=== PATIENT | female | born 1940 | race Caucasian/White ===

== ENCOUNTER 2022-11-05 01:24 | Day surgery (SDC) | payer MEDICARE, OTHER, SELFPAY ==
--- NOTE | 2022-11-03 14:37 | PC.NURSE ---
Report to the Outpatient Waiting Room, entrance under the green pavilion located off [address], at time 1030 on date _11/05/22 . Planned Procedure Time: __1230 . Time changes happen often and if your time is changed the preop area will call you the afternoon before. - You and your visitor will be asked to self-screen and do not enter if you have any COVID symptoms. - Only one visitor is requested with a max of two and NO children visitors are allowed at this time. - The patient visitor may be requested to leave or wait in car when not with patient due to distancing restrictions. - A mask is optional within the hospital. Patients may have clear liquids (water, carbonated beverages, clear teas, apple juice) until 3 hours prior to surgery with a maximum of 20 ounces. - No food from midnight until time of surgery - Infants may have breast milk until 4 hours before surgery, infant formula 6 hours prior to surgery. - Children will be allowed to drink immediately following surgery. If applicable, please bring a bottle or sippy cup to assist with drinking. Juice, water, soda, and popsicles are readily available. For infants on formula, please bring formula the day of surgery. Pacifiers are allowed. Take the following medications with a SIP of water the morning of surgery: __NONE Medications to discontinue per physician ALL VITAMINS AND SUPPLEMENTS 3 DAYS PRE OP Date to take last dose____PT STATES LAST DOSE 11/03/22 Please no make-up, nail welsh, hairspray, perfume, deodorant, or body powder the day of surgery. No jewelry (including any body piercings) or valuables the day of surgery, leave them at home. Please take a shower or bath the night before, or the morning of, surgery with an antibacterial soap. Wear comfortable, loose fitting clothing. Children are encouraged to wear pajamas. - Jewelry must be removed prior to entering the operating room. Rings and piercings that are not removed may be cut off. - The hospital will not accept responsibility for valuables. - Please leave all valuables, including medications, at home the day of surgery. If you are going home after surgery, a licensed driver helper must drive you home. - NO public transportation without another adult if you receive anesthesia. - We recommend that an adult stay with you for 24 hours following discharge. - We also recommend that you do not drive, make important decision, drink alcoholic beverages, or take any drugs that were not prescribed by your health care provider for at least 24 hours after your discharge time. Follow any additional instructions given to you from your surgeon. If you or anyone in your household have experienced Covid symptoms in the past week, please notify your surgeon or the nurse liaison at the phone number below for possible testing. Telephone instructions given to ____PATIENT and asked if any additional questions and then verbalized understanding. Patient advised to call surgeon office or pre surgery nurse liaison [phone] if any additional questions.
[2022-11-03 14:45] VITALS: BMI 18.1
--- NOTE | 2022-11-04 13:40 | P.PNAN_ITS ---
Anes - Initial Pre Proc Eval Procedure: Operation Date: 11/05/22 10:00 Proposed Procedures p Insertion Missy Cath - Jesus Navas MD Date/Time: 11/04/22 13:40 Surgeon: Jesus Navas MD Pre Op Diagnosis: malignant neoplasm of rt breast, Infemale receptor Patient Data Age: 81 Gender: F Height: 1.63 m Weight: 48.1 kg Allergies Allergy/AdvReac Type Severity Reaction Status Date / Time No Known Allergies Allergy Verified 11/05/22 08:29 Home Medications Medication Instructions Recorded Confirmed Type aflibercept 2 mg/0.05 mL 2 mg intravitreal MONTHLY 11/03/22 11/05/22 History intravitreal syringe (Eylea) cholecalciferol (vitamin D3) 50 150 mcg PO DAILY 11/03/22 11/05/22 History mcg (2,000 unit) capsule cyanocobalamin (vitamin B-12) 1,000 mcg PO DAILY 11/03/22 11/05/22 History 1,000 mcg tablet omega-3 fatty acids 1,000 mg PO DAILY 11/03/22 11/05/22 History vitamins A,C,L-jzxs-yzbwsa 14,320 1 cap PO DAILY 11/03/22 11/05/22 History unit-226 mg-200 unit capsule (PreserVision AREDS) Patient hx anesthesia problems: none Family hx anesthesia problems: none Results Review: All pre-operative results and documents have been reviewed as part of the pre- operative evaluation. [facility] Past Medical History Medical History (Updated 11/04/22 @ 20:08 by Jesus Navas MD) Breast cancer Hiatal hernia Invasive ductal carcinoma of right breast, stage 2 Osteoarthritis Surgical History Surgical History (Updated 11/04/22 @ 20:11 by Jesus Navas MD) Total knee replacement status Social History Social History Smoking status: Never smoker Living arrangements: alone Spiritual care concerns: No Anes - Eval Final PreProcedure Day of Procedure 11/04/22 13:40 Patient weight: normal Heart: regular rate and rhythm Lungs: clear to auscultation and normal air movement Airway: Mallampati scale class II Neurological: alert and oriented Last oral intake: >/= 8 hours ASA classification: III Emergent: no Anesthetic plan: proceed Anesthesia type and monitoring: general GIVS Results Review: All pre-operative results and documents have been reviewed as part of the pre- operative evaluation. Informed Consent: The patient's anesthetic plan and its attendant risks and benefits were discussed with the patient/family/POA. Questions were solicited and answers provided to the satisfaction of the patient/family/POA.
--- NOTE | 2022-11-04 20:02 | PM.HPGS ---
History of Present Illness History of Present Illness Consent: Risks, benefits, and alternatives of placement of a Missy-cath have been discussed and questions answered. Patient agrees to proceed with procedure. Chief complaint: malignant neoplasm of rt breast, Infemale receptor Narrative: Nayla Mejias is a 81 year old female whoy has trip;e negative Rt. breast cancer(T1cN0) stage IIB invasive ductal carcinoma. She iw seeing Dr. Adam Ballard they have agreed to proceed with adjuvant chemotheraphy. This is thought best delivered via a central venous access divice. Review of Systems Constitutional: Constitutional: Reports no additional constitutional complaints, Reports fatigue and Denies malaise Eyes: Eyes: Denies change in vision Comments: Hx of Macular degeneration. ENT: Reports Normal hearing present, Denies change in voice, Denies dizziness, Denies hoarseness and Denies sore throat Cardiovascular: Cardiovascular: Denies chest pain, Denies leg edema and Denies dyspnea Respiratory: Respiratory: Denies cough, Denies dyspnea and Denies wheezing Gastrointestinal: Gastrointestinal: Denies hematochezia, Denies change in bowel habits and Denies heartburn Comments: History after anesthesia Genitourinary: Genitourinary: Denies urinary frequency and Denies urinary incontinence Comments: Hx of hiatal hernia. Neurologic: Reports Normal hearing present, Denies confusion, Denies dizziness, Denies loss of vision, Denies memory loss and Denies seizure-like activity Psychiatric: Psychiatric: Denies confusion, Denies depression and Denies memory loss Endocrine: Endocrine: Denies cold intolerance and Reports fatigue Hematologic/Lymphatic: Hematologic/Lymphatic: Denies easy bleeding and Denies easy bruising Allergic/Immunologic: Allergic/Immunologic: Denies wheezing PMFSH Past Medical History Medical History (Updated 11/04/22 @ 20:08 by Jesus Navas MD) Breast cancer Hiatal hernia Invasive ductal carcinoma of right breast, stage 2 Osteoarthritis Surgical History Surgical History (Updated 11/04/22 @ 20:11 by Jesus Navas MD) Total knee replacement status Social History Social History Smoking status: Never smoker Living arrangements: alone Spiritual care concerns: No Meds Home Medications and Allergies Home Medications Medication Instructions Recorded Confirmed Type aflibercept 2 mg/0.05 mL 2 mg intravitreal MONTHLY 11/03/22 11/05/22 History intravitreal syringe (Eylea) cholecalciferol (vitamin D3) 50 150 mcg PO DAILY 11/03/22 11/05/22 History mcg (2,000 unit) capsule cyanocobalamin (vitamin B-12) 1,000 mcg PO DAILY 11/03/22 11/05/22 History 1,000 mcg tablet omega-3 fatty acids 1,000 mg PO DAILY 11/03/22 11/05/22 History vitamins A,C,G-kltw-oiepgo 14,320 1 cap PO DAILY 11/03/22 11/05/22 History unit-226 mg-200 unit capsule (PreserVision AREDS) Allergies Allergy/AdvReac Type Severity Reaction Status Date / Time No Known Allergies Allergy Verified 11/05/22 08:29 Exam Const: General: cooperative, healthy appearing, no acute distress, well developed, alert and well nourished; No confusion Nutritional Appearance: well nourished Orientation/consciousness: patient oriented x3 and No confusion Limitations: no limitations HENMT: Head: normal to inspection, normocephalic and atraumatic Ears: hearing grossly normal bilaterally Face/Nose/Sinus: Normal external nose present and No edema Face and sinus: no edema Mouth: Yes Normal oral and palatal mucosa present and Yes lip normal Throat: posterior oropharynx normal Other: No scars on neck from previous surgery Eyes: General: appearance normal, both eyes and all related structures Sclera: sclerae normal Pupils: Equal, round and reactive pupils present EOM: EOMs intact bilaterally Neck: Neck: normal visual inspection, no lymphadenopathy, trachea midlin
--- NOTE | ~2022-11-05 | XR_ITS ---
EXAMINATION: XR fl guide central line place DATE: 11/05/2022 11:14 INDICATION: Port placement. TECHNIQUE: A single intraoperative fluoroscopic view of the chest was obtained. I was not present. Fl uoroscopy exposure time was 45 seconds. COMPARISON: None. FINDINGS: There is a right internal jugular port with tip at superior cavoatrial junction. IMPRESSION: 1. Port tip at superior cavoatrial junction. Reviewed, dictated and finalized at location A. ESSOR OF ANTHROPOLOGY
--- NOTE | ~2022-11-05 | XR_ITS ---
EXAMINATION: XR chest port-a-cath/central DATE: 11/05/2022 11:29 INDICATION: Port placement. TECHNIQUE: A single frontal view of the chest was obtained. COMPARISON: None. FINDINGS: There is no pneumonia, pleural effusion, pneumothorax. The heart size is normal. There is a right internal jugular port with tip in superior vena cava. Surgical clips overlie right breast. IMPRESSION: 1. Port tip in superior vena cava. Reviewed, dictated and finalized at location A. K OFF WORKER
[2022-11-05] MEDS: LACTATED RINGERS 1,000 ML 30 ML IV CONT (09:10)
[2022-11-05 09:15] VITALS: BP 141/68; PULSE 73; RESP 16; TEMP 36.7; O2SAT 99
[2022-11-05 09:16] LABS: Basophils Percent Auto 0.9 % (0.2-1.2); Eosinophils Absolute Auto 0.2 K/mm3 (0-0.3); Hematocrit 39.4 % (37.0-47.0); Hemoglobin 12.9 g/dL (12.0-15.0); Immature Granulocyte Absolute 0.01 K/mm3 (0.00-0.031); Immature Granulocyte Percent A 0.2 % (0-0.5); Lymphocytes Absolute Auto 1.29 K/mm3 (0.9-3.2); Lymphocytes Percent Auto 30.3 % (18.3-44.2); Mean Corpuscular HGB Conc 32.7 g/dl (32-36); Mean Corpuscular Hemoglobin 29.3 pg (26-34); Mean Corpuscular Volume 89.5 fl (80-100); Monocytes Absolute Auto 0.5 K/mm3 (0.1-0.6); Neutrophils Absolute Auto 2.2 K/mm3 (1.3-6.7); Neutrophils Percent Auto 52.6 % (45.5-73.1); Platelet Count Result 203 k/mm3 (150-375); White Blood Count 4.3 K/mm3 (4.5-10.0)
[2022-11-05] MEDS: KETOROLAC 15 MG/ML VIAL (*BKC) IV PUSH (09:27)
[2022-11-05 09:34] LABS: INR 1.1; Prothrombin Time 13.4 Seconds (11.1-14.7)
[2022-11-05 09:35] LABS: Partial Thromboplastin Time 30.2 SECONDS (22.3-36.8)
--- NOTE | 2022-11-05 09:50 | WPDHPUPDATE1 ---
History and Physical Update Update Date/Time: 11/05/22 09:50 History and Physical has been reviewed, including an updated exam of the patient. There are NO changes in the patient's condition. Risks, benefits, and alternatives have been discussed and questions answered. Patient agrees to proceed with procedure.
[2022-11-05] MEDS: ceFAZolin 2 GM/D5W 50 ML 2 GM/50 ML BAG IVPB (10:08)
[2022-11-05] MEDS: HEPARIN SODIUM 5,000 UNITS/ML VIAL 5000 UNITS IRRIGATION (10:41)
[2022-11-05] MEDS: BUPIVACAINE/EPINEPHRINE 0.5% 10 ML VIAL 20 ML INFILTRATE (10:42)
[2022-11-05 11:12] VITALS: BP 121/66; PULSE 75; RESP 15; O2SAT 96
--- NOTE | 2022-11-05 11:38 | W.PM.PROC2 ---
Procedure Note - Detailed Date of Procedure 11/05/22 Pre-op Diagnosis malignant neoplasm of rt breast, stage II B, triple negative Post-op Diagnosis Same Procedure Performed 1. Placement of Missy-cath. 2. Use of US for vascular access site selection and visualization of needle access to vein. Surgeon Jesus Navas MD Kitchen Mechanic Blanca [email or web address].OR director of first impressions Anesthesia Local (with 0.5% Marcaine with epinepherine) and Other (GIVS) Indications Patient is planning to go through several rounds of adjuvant chemotherapy followed by radiation therapy for her triple negative right breast cancer. Findings Normal appearing vascular anatomy in the right neck. Question of enlarged lymph nodes along the right jugular vein. Description of Procedure Patient was seen and marked in the pre-op area prior to coming to the OR. Patient was brought to the operating room. Patient was placed supine on the operating table and general IV sedation was induced. The nurse financial accounting analyst provided And continuous monitoring, oxygen, and IV sedation or general anesthesia with IV sedation as was appropriate for the patient's condition. See anesthesia notes). Patient's head was carefully turned to the left side while in the supine position and the patient's entire neck and anterior chest on both sides was prepped and draped in the usual sterile fashion. Following this the appropriate time-out was completed confirming procedure and patient. We confirmed that all the needed equipment was present in the room including the vascular ultrasound probe in machine. Following this the ultrasound probe was draped into the field and using the probe we carefully identified the carotid artery and jugular vein on the right neck. I then saved an image of the vascular anatomy of the neck, which documented the selected vessels patency and transferred it from the ultrasound machine to the [employer] chart. I marked the skin directly over the right internal jugular vein. I then used an 11 blade knife to make a small thanh in the skin. Following this, using the continuous ultrasound guidance, a Cook needle was placed through the skin incision and on into this vein. I then was able to draw back good dark blood. Once this was completed a guidewire using a J-tip was advanced through the needle and then the needle and the guidewire cover were withdrawn. C-arm fluoroscopy was used to confirm that the guidewire was nicely in the central venous system. Once this was confirmed with the C - arm, I preceded on by making the pocket for the port on the patient's anterior right chest approximately 3 centimeters below the clavicle overlying the chest wall. Local anesthetic was infiltrated into the skin where there was a transverse incision marked out. Incision was made and we made a pocket inferior to the incision with just a little dissection superior. The Bard low-profile port was tried in the pocket and seemed to fit well. Following this the catheter which had been placed on a tunneling device was tunneled from the port site on the anterior right chest up to the right neck where the small incision had been made slightly larger with an #11 blade knife. Then the catheter was pulled through so that we would have 15 centimeters to put into the central venous system once the dilation took place. Following this we placed the dilator and sheath over the guidewire in the jugular vein and carefully dilated the tract into the central venous system. The guidewire and dilator were then removed, carefully covering the end of the sheath to prevent air embolus. The end of the catheter which had been removed from the tunneling device and the tip checked was then inserted into the sheath and into the neck. I then carefully pulled the 2 arms of the tear-away sheath away as the ssn/ssbn assistant navigator held the catheter in position with a DeBakey forceps. Following this we checked the position of the catheter with C-arm fluoroscopy confirming that t
[2022-11-05 11:40] VITALS: BP 119/80; PULSE 76; RESP 20
[2022-11-05 12:10] VITALS: BP 145/75; PULSE 70; RESP 16
[2022-11-05 12:30] VITALS: BP 145/75; PULSE 70; RESP 20
== END 2022-11-05 12:35 | disposition home or self-care (01) ==
PROVIDERS: PCP Internal Medicine; Visit Provider Surgery
PROC: (CPT 36561; principal; 2022-11-05 10:00)
DX: C50.911 Malignant neoplasm of unspecified site of right female breast (principal); Z17.1 Estrogen receptor negative status [ER-]; M19.90 Unspecified osteoarthritis, unspecified site; K44.9 Diaphragmatic hernia without obstruction or gangrene
CPT/HCPCS: 36561; 36415; 76937; 77001; 85025; 85610; 85730; C1788; J0690; J1644; J1885; J2704; J3010; J7030; J7120

== ENCOUNTER 2022-12-20 12:36 | Inpatient (IN) | payer MEDICARE, OTHER, SELFPAY ==
--- NOTE | ~2022-12-20 | MR_ITS ---
EXAMINATION: MR MRCP wo/w con/w 3D wo ind DATE: 12/21/2022 09:36 INDICATION: Biliary obstruction. Abdominal pain. TECHNIQUE: Magnetic resonance imaging (MRI) of the abdomen was performed without and with 9 mL MultiH ance intravenous contrast. Sequences included coronal T2-weighted FS FSE, coronal T2-weighted FSE, ax ial T1-weighted LAVA, coronal FS FIESTA, axial dual-echo T1-weighted SPGR, coronal lava-FLEX, sagitta l T2-weighted FSE, axial T2-weighted FSE, and axial DWI. Thick-slab T2-weighted FSE images were obtai aaron for magnetic resonance cholangiopancreatography (MRCP). Maximum intensity projection 3-D reconstr uctions of the volumetric data were created by the technologist. Postcontrast sequences included efren nal LAVA-flex and time course of axial T1-weighted LAVA. COMPARISON: CT abdomen and pelvis 12/20/22 FINDINGS: ABDOMEN MRI: There is a 5 mm cyst in the liver. There is mild intrahepatic biliary duct dilatation. T he common duct measures 10 mm in diameter. The gallbladder and spleen are normal. Pancreas divisum is noted. There are 5 mm and 4 mm cystic lesions in the pancreas. The adrenal glands are normal. There are cysts in the kidneys measuring up to 17 mm on the left. There are no pathologically enlarged lymp h nodes. There is no free intraperitoneal fluid. There are no dilated loops of bowel. ABDOMEN MRCP: There is no choledocholithiasis. IMPRESSION: 1. Mild intrahepatic and extrahepatic biliary duct dilatation. No choledocholithiasis. 2. Two pancreatic cystic lesions measuring up to 5 mm. The differential diagnosis includes pseudocyst , intraductal papillary mucinous neoplasm (IPMN), mucinous cystic neoplasm (MCN), serous cystadenoma, and neuroendocrine tumor. Consider abdomen MRI without and with contrast in 2 years, but only if the patient would be a possible future surgical candidate. Reviewed, dictated and finalized at location A. HIATRIC CLINICAL NURSE SPECIALIST IMPRESSION: 1. Mild intrahepatic and extrahepatic biliary duct dilatation. No choledocholit hiasis. 2. Two pancreatic cystic lesions measuring up to 5 mm. The differential diagnos is includes pseudocyst, intraductal papillary mucinous neoplasm (IPMN), mucinou s cystic neoplasm (MCN), serous cystadenoma, and neuroendocrine tumor. Consider abdomen MRI without and with contrast in 2 years, but only if the patient woul d be a possible future surgical candidate.
--- NOTE | ~2022-12-20 | XR_ITS ---
EXAMINATION: XR chest 1V portable DATE: 12/20/2022 16:56 INDICATION: Fever. TECHNIQUE: A single frontal view of the chest was obtained. COMPARISON: Chest single view 11/05/2022, CT abdomen and pelvis 12/20/2022 FINDINGS: There is no pneumonia, pleural effusion, or pneumothorax. The heart size is normal. There i s a right internal jugular port with tip at superior cavoatrial junction. Surgical clips overlie righ t chest. IMPRESSION: 1. No acute cardiopulmonary disease. Reviewed, dictated and finalized at location A. A SENIOR RECRUITER
--- NOTE | ~2022-12-20 | CT_ITS ---
EXAMINATION: CT abdomen pelvis w con DATE: 12/20/2022 14:08 INDICATION: Abdominal pain. Constipation. TECHNIQUE: Computed tomography (CT) of the abdomen and pelvis was performed with 100 cc Omnipaque 350 intravenous contrast. The dose-length product was 177.10 mGy-cm. Automated exposure control and iter ative reconstruction technique were employed. COMPARISON: No prior studies for comparison. FINDINGS: There is right middle lobe and lingular atelectasis/scarring. Otherwise, lung bases unremar kable. No significant pleural or pericardial effusion. Small hiatal hernia. There is fluid throughout the small bowel and colon. No obstruction. Gallbladder is present. There is intrahepatic and extrahe patic biliary dilatation. There is evidence for chronic pancreatitis. There are calcified granulomas of the spleen. There are bilateral renal cysts. No hydronephrosis. No significant vascular abnormalit y. No lymphadenopathy. No free air or free fluid. There is dextroscoliosis of the lumbar spine. Moder ate lumbar spondylosis. There is generalized osteopenia. IMPRESSION: 1. Dilated intrahepatic and extrahepatic bile ducts. No definite obstructing stone or mass. Consider correlation with MRCP. CBD measures 10 mm. 2: Moderately distended small bowel and colon containing fluid throughout which may represent ileus o r enterocolitis. Reviewed, dictated and finalized at location A. CAL RECEPTIONIST MEDICAL ASSISTANT IMPRESSION: 1. Dilated intrahepatic and extrahepatic bile ducts. No definite obstructing st one or mass. Consider correlation with MRCP. CBD measures 10 mm. 2: Moderately distended small bowel and colon containing fluid throughout which may represent ileus or enterocolitis.
[2022-12-20 12:37] VITALS: BP 149/59; PULSE 120; RESP 16; TEMP 37.8; O2SAT 96
[2022-12-20] MEDS: SODIUM CHLORIDE 0.9% IV 1,000 ML 999 ML IV CONT ×2 (13:24→15:24)
--- NOTE | 2022-12-20 13:33 | ED.GENADULT ---
HPI - General Adult General Chief complaint: Abdominal Pain Stated complaint: Constipation, Abd Pain Time Seen by Provider: 12/20/22 12:44 History of Present Illness HPI narrative: 81-year-old female presented to the emergency department for evaluation of 5 days of constipation. Patient denies any prior history of significant constipation. Patient is currently being treated for breast cancer by Dr. Medina. Patient had chemotherapy on 12/12. Patient reports over the last 5 days she has had decreased bowel movements. Patient has tried multiple treatments at home including flaxseed oil, fleets enema and Senokot. Patient states that while she was in the waiting room she did pass a small amount of fluid that was brown-colored but denies any significant amount of stool. Patient does report some associated upper abdominal pain. Patient reports she is still eating and drinking well up until today. Patient does report she is passing flatus. Patient does have a prior surgical history of a hysterectomy. Related Data Home Medications Medication Instructions Recorded Confirmed aflibercept 2 mg/0.05 mL 2 mg intravitreal [id number] macular 11/03/22 12/20/22 intravitreal syringe (Eylea) degeneration cholecalciferol (vitamin D3) 50 150 mcg PO DAILY 11/03/22 12/20/22 mcg (2,000 unit) capsule cyanocobalamin (vitamin B-12) 1,000 mcg PO DAILY 11/03/22 12/20/22 1,000 mcg tablet omega-3 fatty acids 1,000 mg PO DAILY 11/03/22 12/20/22 vitamins A,C,N-iopw-jlsfms 14,320 1 cap PO DAILY 11/03/22 12/20/22 unit-226 mg-200 unit capsule (PreserVision AREDS) Allergies Allergy/AdvReac Type Severity Reaction Status Date / Time No Known Allergies Allergy Verified 12/20/22 18:22 Review of Systems Review of Systems: CONSTITUTIONAL: Denies fever, chills, or sweats. EYES: Denies visual changes, redness, or discharge. ENT: Denies rhinorrhea, congestion, sore throat, or otalgia. CARDIOVASCULAR: Denies chest pain, palpitations, or edema. RESPIRATORY: Denies cough or dyspnea. GASTROINTESTINAL: See HPI GENITOURINARY: Denies dysuria or hematuria. SKIN: Denies rash or itching. MUSCULOSKELETAL: Denies back pain, joint pain, or myalgia. NEUROLOGIC: Denies headache, numbness, or weakness. [facility] Past Medical History Medical History (Updated 12/20/22 @ 16:07 by Devin Webb MD) Breast cancer Hiatal hernia Invasive ductal carcinoma of right breast, stage 2 Osteoarthritis Surgical History Surgical History (Updated 11/04/22 @ 20:11 by Jesus Barry MD) Total knee replacement status Social History Social History Smoking status: Never smoker Alcohol intake: never Substance use: never Lack of Transportation: No Lack of Food: Never True Current Housing: I Have Housing Concerned About Future Housing: No Difficulty Paying Gas/Electric Bills: No Difficulty Paying for Meds: No Currently Unemployed: No Education: Decline to Answer Difficulty w/ Childcare or Family Care: No Living arrangements: alone Spiritual care concerns: No Exam Narrative: APPEARANCE: Well appearing, no pain, no distress, well-nourished. HEAD: normocephalic, atraumatic. EYES: PERRLA/EOMI, conjunctivae clear. NOSE: Normal no drainage NECK: Supple. No adenopathy, no masses. RESPIRATORY: Airway patent, respirations nonlabored. Clear to auscultation bilaterally, no rales, rhonchi, wheezing. CARDIOVASCULAR: Regular rate and rhythm without murmurs rubs or gallops. ABDOMINAL: Soft, nondistended, decreased bowel sounds, upper abdominal tenderness to palpation MUSCULOSKELETAL: Moves all extremities. Strength/ROM intact, No edema, No calf tenderness. NEURO: Alert. Cranial nerves II through XII intact. Grossly intact SKIN: Warm, dry. Normal Color Course Course Emergency Course: Patient was treated with IV saline, IV Zofran and IV fentanyl for pain control. CT scan was ordered
[2022-12-20 13:35] LABS: Basophils Percent Auto 1.5 % (0.2-1.2); Hematocrit 32.8 % (37.0-47.0); Hemoglobin 11.3 g/dL (12.0-15.0); Lymphocytes Absolute Auto 0.66 K/mm3 (0.9-3.2); Lymphocytes Percent Auto 50.8 % (18.3-44.2); Mean Corpuscular HGB Conc 34.5 g/dl (32-36); Mean Corpuscular Hemoglobin 28.5 pg (26-34); Mean Corpuscular Volume 82.8 fl (80-100); Mean Platelet Volume 10.7 fl (7.4-10.4); Monocytes Absolute Auto 0.6 K/mm3 (0.1-0.6); Monocytes Percent Auto 45.4 % (2.6-8.5); Neutrophils Percent Auto 2.3 % (45.5-73.1); Platelet Count Result 245 k/mm3 (150-375); Red Blood Count 3.96 M/mm3 (4.2-5.4); Red Cell Distribution Width 11.7 % (11.5-14.5)
[2022-12-20 13:48] LABS: Lactic Acid Reflex 0.9 mmol/L (0.7-2.0)
[2022-12-20 13:49] LABS: Alanine Aminotransferase 123 U/L (6-35); Albumin Level 3.8 g/dL (3.5-5.1); Alkaline Phosphatase 105 U/L (38-126); Anion Gap 7 mmol/L (8-16); Aspartate Amino Transferase 155 U/L (14-36); Bilirubin,Total 1.5 mg/dL (0.2-1.3); Blood Urea Nitrogen 16 mg/dL (7-17); Calcium 8.3 mg/dL (8.4-10.2); Carbon Dioxide 27 mmol/L (22-30); Chloride 92 mmol/L (98-107); Estimated CRCL calculation 57 ml/min; Estimated Glomerular Filt Rate > 60; Glucose 124 mg/dL (65-110); Lipase 62 U/L (23-300); Potassium 3.3 mmol/L (3.4-5.0); Sodium 126 mmol/L (137-145)
[2022-12-20 13:53] LABS: INR 1.2; Partial Thromboplastin Time 29.9 SECONDS (22.3-36.8); Prothrombin Time 14.7 Seconds (11.1-14.7)
[2022-12-20 13:59] LABS: White Blood Count 1.3 K/mm3 (4.5-10.0)
[2022-12-20 14:18] VITALS: TEMP 38.6
[2022-12-20 14:18] LABS: Platelet Estimate Increased (Adequate)
[2022-12-20 14:19] LABS: Ovalocytes 1+ (NORMAL); Poikilocytosis 1+ (NORMAL); Schistocytes None Seen (NORMAL)
[2022-12-20 14:19] LABS: Appearance Urine Clear (Clear); Bilirubin Urine Negative (Negative); Blood Urine Trace-intact (Negative); Color Urine Yellow (Yellow); Glucose Urine UA Negative (Negative); Ketones Urine Negative (Negative); Leukocyte Esterase Ur Negative LEU/UL (Negative); Nitrate Urine Negative (Negative); Protein Urine Trace mg/dL (Negative); Urobilinogen Urine 0.2 mg/dL (<2.0); pH Urine 5.5 (5.0-9.0)
[2022-12-20 14:37] LABS: Mucus Urine Few /lpf; WBC Urine 0-3 /hpf
[2022-12-20 14:41] LABS: Add Urine Microscopic? YES
[2022-12-20 15:35] LABS: Influenza A QL RT-PCR Negative (Negative); Influenza B QL RT-PCR Negative (Negative); RSV RNA, RT-PCR Negative (Negative); SARS-CoV-2 RNA PCR Negative
[2022-12-20] MEDS: fentaNYL CITRATE INJ (*CRX) 100 MCG/2 ML VIAL 50 MCG IV PUSH ×2 (15:49→22:29)
--- NOTE | 2022-12-20 16:01 | PM.IMHP ---
H&P: HPI History of Present Illness Date/Time: 12/20/22 16:01 Chief Complaint: fever,, abdominal discomfort Narrative: this 81-year-old female who presents to the ER for evaluation of 5 days of constipation/abdominal discomfort. She tried multiple treatments at home including flaxseed oral fleets enema and Senokot. She has not had any bowel movement since past 5 days but had a small watery one 2 days back. she noted an episode of fever today and came to the hospital for evaluation. She was noted to be severely neutropenic. She was also hyponatremic and hypokalemic LFTs were elevated UA was negative. She is getting treated for breast cancer by oncologist. Last chemotherapy was on 12/12/2022. COVID flu and RSV negative. CT abdomen is done which showed dilated intrahepatic and extrahepatic bile ducts with no definitive obstructing mass or stone. CBD measured 10 mm in size. Moderately distended small bowel and colon continue fluid throughout which represent ileus or enterocolitis. She is admitted for further evaluation and management. Review of Systems Review of Systems: - CONSTITUTIONAL: Denies weight loss, rpeorts fever and chills. - HEENT: Denies changes in vision and hearing - RESPIRATORY: Denies SOB and cough. - CV: Denies palpitations and CP. - GI: reprots abdominal pain, denies nausea, vomiting and reports diarrhea. - : Denies dysuria and urinary frequency. - MSK: Denies myalgia and joint pain. - SKIN: Denies rash and pruritus. - NEUROLOGICAL: Denies headache and syncope. - PSYCHIATRIC: Denies recent changes in mood. Denies anxiety and depression. [facility] Past Medical History Medical History (Updated 12/20/22 @ 16:07 by Devin Webb MD) Breast cancer Hiatal hernia Invasive ductal carcinoma of right breast, stage 2 Osteoarthritis Surgical History Surgical History (Updated 11/04/22 @ 20:11 by Jesus Barry MD) Total knee replacement status Social History Social History Smoking status: Never smoker Alcohol intake: never Substance use: never Lack of Transportation: No Lack of Food: Never True Current Housing: I Have Housing Concerned About Future Housing: No Difficulty Paying Gas/Electric Bills: No Difficulty Paying for Meds: No Currently Unemployed: No Education: Decline to Answer Difficulty w/ Childcare or Family Care: No Living arrangements: alone Spiritual care concerns: No Meds Home Medications and Allergies Home Medications Medication Instructions Recorded Confirmed Type aflibercept 2 mg/0.05 mL 2 mg intravitreal [id number] macular 11/03/22 12/20/22 History intravitreal syringe (Eylea) degeneration cholecalciferol (vitamin D3) 50 150 mcg PO DAILY 11/03/22 12/20/22 History mcg (2,000 unit) capsule cyanocobalamin (vitamin B-12) 1,000 mcg PO DAILY 11/03/22 12/20/22 History 1,000 mcg tablet omega-3 fatty acids 1,000 mg PO DAILY 11/03/22 12/20/22 History vitamins A,C,G-dqlq-jgkdza 14,320 1 cap PO DAILY 11/03/22 12/20/22 History unit-226 mg-200 unit capsule (PreserVision AREDS) Allergies Allergy/AdvReac Type Severity Reaction Status Date / Time No Known Allergies Allergy Verified 12/12/22 10:28 Vital Signs Vital Signs - 24 hr 12/20/22 12:37 12/20/22 14:18 Temperature 100.1 F H 101.4 F H Pulse Rate 120 H Respiratory Rate 16 Blood Pressure 149/59 H Pulse Oximetry 96 Oxygen Delivery Room Air Exam Narrative: APPEARANCE: Well appearing, no pain, no distress, well-nourished. HEAD: normocephalic, atraumatic. EYES: PERRLA/EOMI, conjunctivae clear. NOSE: Normal no drainage NECK: Supple. No adenopathy, no masses. RESPIRATORY: Airway patent, respirations nonlabored. Clear to auscultation bilaterally, no rales, rhonchi, wheezing. CARDIOVASCULAR: Regular rate and rhythm without murmurs rubs or gallops. ABDOMINAL: Soft, nondistended, decreased
--- NOTE | 2022-12-20 16:25 | ADMGEN ---
This patient, Nayla Mejias, was admitted to Medical Room 341-01. Patient/family oriented to hospital policies and general routines including ID bracelet, bed and alarms, visiting hours, pain management, procedures, bathroom and other care routines, personal items, smoking policy, room service/diet, and visiting hours. Information on how to activate the Rapid Response Team has been discussed. Patient/Family are encouraged to report perceived risks to care and to ask questions if they do not understand what they are told or what they should do.
[2022-12-20 16:30] VITALS: BP 127/61; PULSE 86; RESP 16; TEMP 37.1; O2SAT 95
[2022-12-20 16:48] VITALS: BMI 18.9
[2022-12-20] MEDS: SODIUM CHLORIDE 0.9% IV 1,000 ML 100 ML IV CONT (17:27)
[2022-12-20] MEDS: metroNIDAZOLE 500 MG/ISO 100ML 500 MG/100 ML BAG 100 MG IVPB ×2 (17:28→22:28)
[2022-12-20] MEDS: POTASSIUM CHLORIDE 20 MEQ TABLET 40 MEQ PO (17:28)
[2022-12-20 17:30] VITALS: PULSE 86; RESP 16; O2SAT 95
[2022-12-20 20:20] VITALS: BP 123/54; PULSE 84; RESP 18; TEMP 37.2; O2SAT 97
[2022-12-21] VITALS (8 sets, daily range): BP systolic 121–132; BP diastolic 53–89; PULSE 75–89; RESP 16–18; TEMP 36.7–38.4; O2SAT 94–100
[2022-12-21] MEDS: ACETAMINOPHEN 325 MG TABLET 650 MG PO (01:56)
[2022-12-21] MEDS: SODIUM CHLORIDE 0.9% IV 1,000 ML 100 ML IV CONT (04:22)
[2022-12-21] MEDS: metroNIDAZOLE 500 MG/ISO 100ML 500 MG/100 ML BAG 100 MG IVPB ×4 (04:22→21:24)
[2022-12-21 05:20] LABS: Basophils Percent Auto 1.4 % (0.2-1.2); Eosinophils Percent Auto 0.7 % (0-4.4); Hematocrit 30.1 % (37.0-47.0); Hemoglobin 9.9 g/dL (12.0-15.0); Immature Granulocyte Absolute 0.02 K/mm3 (0.00-0.031); Immature Granulocyte Percent A 1.4 % (0-0.5); Lymphocytes Absolute Auto 0.57 K/mm3 (0.9-3.2); Lymphocytes Percent Auto 40.7 % (18.3-44.2); Mean Corpuscular HGB Conc 32.9 g/dl (32-36); Mean Corpuscular Hemoglobin 28.5 pg (26-34); Mean Corpuscular Volume 86.7 fl (80-100); Mean Platelet Volume 10.7 fl (7.4-10.4); Monocytes Absolute Auto 0.8 K/mm3 (0.1-0.6); Monocytes Percent Auto 53.6 % (2.6-8.5); Neutrophils Percent Auto 2.2 % (45.5-73.1); Platelet Count Result 221 k/mm3 (150-375); Red Blood Count 3.47 M/mm3 (4.2-5.4); Red Cell Distribution Width 11.9 % (11.5-14.5)
[2022-12-21 05:42] LABS: White Blood Count 1.4 K/mm3 (4.5-10.0)
[2022-12-21 05:44] LABS: Alanine Aminotransferase 90 U/L (6-35); Albumin Level 2.8 g/dL (3.5-5.1); Alkaline Phosphatase 89 U/L (38-126); Anion Gap 4 mmol/L (8-16); Aspartate Amino Transferase 69 U/L (14-36); Bilirubin,Total 1.3 mg/dL (0.2-1.3); Blood Urea Nitrogen 10 mg/dL (7-17); Calcium 7.5 mg/dL (8.4-10.2); Carbon Dioxide 23 mmol/L (22-30); Chloride 106 mmol/L (98-107); Estimated CRCL calculation 69 ml/min; Estimated Glomerular Filt Rate > 60; Glucose 90 mg/dL (65-110); Lipase 110 U/L (23-300); Magnesium 1.8 mg/dL (1.6-2.3); Potassium 3.2 mmol/L (3.4-5.0); Sodium 133 mmol/L (137-145)
[2022-12-21] MEDS: POTASSIUM CHLORIDE 20 MEQ TABLET 40 MEQ PO (09:48)
[2022-12-21] MEDS: DEXTROSE 5%/0.45% SOD CHL 1,000 ML 100 ML IV CONT ×2 (09:49→19:02)
[2022-12-21] MEDS: FILGRASTIM-SNDZ 480 MCG/0.8 ML SYRINGE SUB-Q (10:04)
[2022-12-21 13:25] LABS: Anion Gap 6 mmol/L (8-16); Blood Urea Nitrogen 11 mg/dL (7-17); Calcium 7.9 mg/dL (8.4-10.2); Carbon Dioxide 25 mmol/L (22-30); Chloride 101 mmol/L (98-107); Estimated CRCL calculation 69 ml/min; Estimated Glomerular Filt Rate > 60; Glucose 110 mg/dL (65-110); Potassium 3.2 mmol/L (3.4-5.0); Sodium 132 mmol/L (137-145)
--- NOTE | 2022-12-21 14:48 | PM.IMPN ---
Progress Note: A&P Assessment and Plan (1) Neutropenic fever: Code(s): D70.9 - Neutropenia, unspecified; R50.81 - Fever presenting with conditions classified elsewhere Status: Acute (2) Acute hyponatremia: Code(s): E87.1 - Hypo-osmolality and hyponatremia Status: Acute (3) Transaminitis: Code(s): R74.01 - Elevation of levels of liver transaminase levels Status: Acute (4) Ileus: Code(s): K56.7 - Ileus, unspecified Status: Acute (5) Invasive ductal carcinoma of right breast, stage 2: Code(s): C50.911 - Malignant neoplasm of unspecified site of right female breast Status: Acute (6) Dilation of biliary tract: Code(s): K83.8 - Other specified diseases of biliary tract Status: Acute Plan # abdominal pain associated constipation. CT with biliary dilatation. Transaminitis however bilirubin mildly elevated and normal alkaline phosphatase. MRCP ordered which showed: 1. Mild intrahepatic and extrahepatic biliary duct dilatation. No choledocholithiasis. 2. Two pancreatic cystic lesions measuring up to 5 mm. The differential diagnosis includes pseudocyst, intraductal papillary mucinous neoplasm (IPMN), mucinous cystic neoplasm (MCN), serous cystadenoma, and neuroendocrine tumor. Consider abdomen MRI without and with contrast in 2 years, but only if the patient would be a possible future surgical candidate. GI consulted. # neutropenic fever likely due to chemo that was recently done on 12/12/2022. Filgastrim started. pancultured. Started on vancomycin and cefepime which will be continued. add Flagyl for GI coverage. oncology consulted.Continues to be neutropenic continue broad-spectrum antibiotics. Follow cultures # Enterocolitis : iv cefepime and iv flagyl. stool studies if stool sample # possible sepsis: With fever neutropenia and likely source biliary/ GI. chest x-ray negative. UA is negative # breast cancer on active chemotherapy s/p lumpectomy # hyponatremia 126 baseline 140. sodium level up to 133 today. Will change IV fluid to D5 half-normal saline and recheck and monitor sodium level this afternoon # hypokalemia replace and monitor # code status full code # DVT prophylaxis Lovenox Subjective Date/time seen: 12/21/22 14:48 Interval history: no overnight events. She did have fever last night. Abdominal distension and pain. No nausea vomiting. Review of Systems Review of Systems: All systems reviewed & are unremarkable except as noted in HPI and below Exam Narrative: APPEARANCE: Well appearing, no distress, well-nourished. HEAD: normocephalic, atraumatic. EYES: PERRLA/EOMI, conjunctivae clear. NOSE: Normal no drainage NECK: Supple. No adenopathy, no masses. RESPIRATORY: Airway patent, respirations nonlabored. Clear to auscultation bilaterally, no rales, rhonchi, wheezing. CARDIOVASCULAR: Regular rate and rhythm without murmurs rubs or gallops. ABDOMINAL: Soft, Mildly distended, decreased bowel sounds, mild tender periumbilical area MUSCULOSKELETAL: Moves all extremities. Strength/ROM intact, No edema, No calf tenderness. NEURO: Alert. Cranial nerves II through XII intact.? Grossly intact SKIN: Warm, dry. Normal Color Objective Data Vital Signs Vital Signs: Vital Signs - 24 hr 12/20/22 16:30 12/20/22 17:30 12/20/22 20:20 Temperature 98.7 F 99.0 F Pulse Rate 86 86 84 Respiratory Rate 16 16 18 Blood Pressure 127/61 123/54 L Pulse Oximetry 95 95 97 Oxygen Delivery Room Air 12/21/22 01:01 12/21/22 01:56 12/21/22 01:00 Temperature 101.2 F H 101.2 F H 101.2 F H Pulse Rate Respiratory Rate Blood Pressure Pulse Oximetry Oxygen Delivery 12/21/22 04:23 12/21/22 02:56 12/21/22 08:30 Temperature 98.8 F 98.8 F Pulse Rate 89 89 Respiratory Rate 18 18 Blood Pressure 121/53 L Pulse Oximetry 94 94 Oxygen Delivery Room Air 12/21/22 14:00 Temperature 98.1 F Pulse Rate 87 Respiratory Rate 18 Blo
[2022-12-21] MEDS: polyethylene glycoL 3350 17 GM POWD.PACK PO (14:56)
--- NOTE | 2022-12-21 20:12 | WPDGICN ---
Assessment and Plan Assessment and plan (1) Neutropenic fever: Code(s): D70.9 - Neutropenia, unspecified; R50.81 - Fever presenting with conditions classified elsewhere Status: Acute Assessment and Plan: started on abx by primary team, pending cultures (2) Dilation of biliary tract: Code(s): K83.8 - Other specified diseases of biliary tract Status: Acute Assessment and Plan: mrcp reviewed, no stricture or stones, no need of ercp (3) Transaminitis: Code(s): R74.01 - Elevation of levels of liver transaminase levels Status: Acute Assessment and Plan: probably multifactorial from chemotherapy, fever, etc monitor (4) Constipation: Code(s): K59.00 - Constipation, unspecified Status: Acute Assessment and Plan: already on miralax, will add lactulose based on clinical course, she may be ok to have colonoscopy as outpatient (5) Acute hyponatremia: Code(s): E87.1 - Hypo-osmolality and hyponatremia Status: Acute (6) Breast cancer: Code(s): C50.919 - Malignant neoplasm of unspecified site of unspecified female breast Status: Acute Assessment and Plan: s/p chemotherapy GI Consult Note Consult date/time: 12/21/22 20:12 Reason for consult: constipation, dilated bile duct, neutropenic fever HPI: Nayla Mejias is a 81 year old female who has been getting chemotherapy because breast cancer last time about 10 days ago and says since discontinued using steroids has not been able to sleep and also new onset of abdominal discomfort with constipation for last 5 days despite using fleets enema, Senokot and other laxatives.?She also noted fever 101 and blood work showed severely neutropenic.? She was also hyponatremic and hypokalemic LFTs were elevated (tb 1.5, transaminases 100-150), UA was negative.? COVID flu and RSV negative.? CT abdomen is done which showed dilated intrahepatic and extrahepatic bile ducts with no definitive obstructing mass or stone.? CBD measured 10 mm in size.?MRCP negative for choledocholithiasis, small pancreatic cyst recommend to repeat in 2 years (patient also told me that last colonoscopy about 10 years ago and had MRI abdomen about 4-5 months ago that also revealed small pancreatic cyst). Review of Systems Review of Systems: - CONSTITUTIONAL: Denies weight loss, + fever and chills. - Eye- no blurry vision - HEENT: normal hearing - RESPIRATORY: Denies SOB and cough. - CV: Denies palpitations and CP. - GI: + abdominal pain, denies nausea, + constipation - : Denies dysuria and urinary frequency. - MSK: Denies myalgia and joint pain. - SKIN: Denies rash and pruritus. - NEUROLOGICAL: Denies headache and syncope. - PSYCHIATRIC: Denies recent changes in mood. Denies anxiety and depression. [facility] Past Medical History Medical History (Updated 12/21/22 @ 20:17 by Henrik Mederos MD) Breast cancer Constipation Hiatal hernia Invasive ductal carcinoma of right breast, stage 2 Osteoarthritis Surgical History Surgical History (Updated 11/04/22 @ 20:11 by Jesus Barry MD) Total knee replacement status Social History Social History Smoking status: Never smoker Alcohol intake: never Substance use: never Lack of Transportation: No Lack of Food: Never True Current Housing: I Have Housing Concerned About Future Housing: No Difficulty Paying Gas/Electric Bills: No Difficulty Paying for Meds: No Currently Unemployed: No Education: Decline to Answer Difficulty w/ Childcare or Family Care: No Living arrangements: alone Spiritual care concerns: No Meds Home Medications and Allergies Home Medications Medication Instructions Recorded Confirmed Type aflibercept 2 mg/0.05 mL 2 mg intravitreal [id number] macular 11/03/22 12/20/22 History intravitreal syringe (Eylea) degeneration ch
[2022-12-22 04:25] LABS: Basophils Absolute Auto 0.1 K/mm3 (0.0-0.1); Basophils Percent Auto 1.7 % (0.2-1.2); Eosinophils Percent Auto 0.6 % (0-4.4); Hemoglobin 9.7 g/dL (12.0-15.0); Immature Granulocyte Absolute 0.11 K/mm3 (0.00-0.031); Immature Granulocyte Percent A 3.1 % (0-0.5); Lymphocytes Absolute Auto 1.06 K/mm3 (0.9-3.2); Lymphocytes Percent Auto 29.9 % (18.3-44.2); Mean Corpuscular HGB Conc 33.4 g/dl (32-36); Mean Corpuscular Hemoglobin 28.7 pg (26-34); Mean Corpuscular Volume 85.8 fl (80-100); Mean Platelet Volume 10.3 fl (7.4-10.4); Monocytes Absolute Auto 1.4 K/mm3 (0.1-0.6); Monocytes Percent Auto 38.7 % (2.6-8.5); Neutrophils Absolute Auto 0.9 K/mm3 (1.3-6.7); Nucleated Red Blood Cells Perc 0.6 % (0.0-0.2); Platelet Count Result 242 k/mm3 (150-375); Red Blood Count 3.38 M/mm3 (4.2-5.4); Red Cell Distribution Width 11.9 % (11.5-14.5); White Blood Count 3.5 K/mm3 (4.5-10.0)
[2022-12-22 04:35] LABS: Alanine Aminotransferase 62 U/L (6-35); Albumin Level 2.9 g/dL (3.5-5.1); Alkaline Phosphatase 78 U/L (38-126); Anion Gap 2 mmol/L (8-16); Aspartate Amino Transferase 34 U/L (14-36); Bilirubin,Total 0.6 mg/dL (0.2-1.3); Blood Urea Nitrogen 7 mg/dL (7-17); Carbon Dioxide 28 mmol/L (22-30); Chloride 100 mmol/L (98-107); Estimated CRCL calculation 69 ml/min; Estimated Glomerular Filt Rate > 60; Glucose 127 mg/dL (65-110); Magnesium 1.7 mg/dL (1.6-2.3); Potassium 2.9 mmol/L (3.4-5.0); Sodium 130 mmol/L (137-145)
[2022-12-22] MEDS: ONDANSETRON INJ 4 MG/2 ML VIAL IV PUSH (05:50)
[2022-12-22] MEDS: metroNIDAZOLE 500 MG/ISO 100ML 500 MG/100 ML BAG 100 MG IVPB ×4 (05:50→21:46)
[2022-12-22 06:00] VITALS: BP 130/71; PULSE 72; RESP 16; TEMP 36.7; O2SAT 95
[2022-12-22] MEDS: CENTRAL LINE FLUSH 10 ML IV PUSH ×3 (09:00→21:47)
[2022-12-22] MEDS: POTASSIUM CHLORIDE 20 MEQ TABLET 40 MEQ PO (09:00)
[2022-12-22] MEDS: FILGRASTIM-SNDZ 480 MCG/0.8 ML SYRINGE SUB-Q (09:01)
[2022-12-22] MEDS: LACTULOSE 20 GM/30 ML UDC PO ×2 (09:02→16:17)
[2022-12-22] MEDS: polyethylene glycoL 3350 17 GM POWD.PACK PO (09:02)
--- NOTE | 2022-12-22 12:46 | WPDGIPROGNO ---
Progress Note: A&P Assessment and Plan (1) Dilation of biliary tract: Code(s): K83.8 - Other specified diseases of biliary tract Status: Acute Assessment and Plan: no choledocholithiasis lft's trending down and probably multifactorial from recent chemotherapy, fever, etc (2) Constipation: Code(s): K59.00 - Constipation, unspecified Status: Acute Assessment and Plan: better on miralax and lactulose tolerating diet (3) Neutropenic fever: Code(s): D70.9 - Neutropenia, unspecified; R50.81 - Fever presenting with conditions classified elsewhere Status: Acute Assessment and Plan: wbc improved after medical treatment by primary (4) Transaminitis: Code(s): R74.01 - Elevation of levels of liver transaminase levels Status: Acute Assessment and Plan: trending down (5) Breast cancer: Code(s): C50.919 - Malignant neoplasm of unspecified site of unspecified female breast Status: Acute (6) Hypokalemia: Code(s): E87.6 - Hypokalemia Status: Acute Subjective Date/time seen: 12/22/22 12:46 Interval history: feeling better and having more BM, less abdominal discomfort Review of Systems Review of Systems: All systems reviewed & are unremarkable except as noted in HPI and below Exam Const: General: comfortable and no acute distress HENMT: Face/Nose/Sinus: Normal nares present Eyes: General: appearance normal, both eyes and all related structures Neck: Neck: no JVD Resp: Auscultation: clear to auscultation bilaterally Cardio: Rate: regular rate Rhythm: regular rhythm GI: Inspection: non-distended GI Palp: Yes Soft to palpation, Yes Tenderness to palpation present (GI) (mild ttp, no rebound, no guarding) and No Guarding due to palpation present (GI) Skin: General skin exam: normal color Neuro: General: gait normal Speech: normal speech Extrem: General: normal to inspection Psych: Mental Status: mental status grossly normal Objective Data Vital Signs Vital Signs: Vital Signs - 24 hr 12/21/22 14:00 12/21/22 21:58 12/21/22 20:00 Temperature 98.1 F 98.1 F Pulse Rate 87 75 Respiratory Rate 18 16 Blood Pressure 130/59 L 132/89 Pulse Oximetry 100 98 Oxygen Delivery Room Air 12/22/22 06:00 12/22/22 08:00 Temperature 98.1 F Pulse Rate 72 Respiratory Rate 16 Blood Pressure 130/71 Pulse Oximetry 95 Oxygen Delivery Room Air Intake/Output Intake/Output: Intake & Output 12/19/22 12/20/22 12/21/22 12/22/22 23:59 23:59 23:59 23:59 Intake Total 2590 3390 390 Output Total 800 300 200 Balance 1790 3090 190 Meds/Results Medications: Active Medications Generic Name Dose Route Start Last Admin Trade Name Freq PRN Reason Stop Dose Admin Acetaminophen 650 mg 12/21/22 01:02 12/21/22 01:56 Acetaminophen 325 Mg Tablet PO 650 mg Q6H PRN Administration Mild Pain (1-3) or Fever Fentanyl Citrate 50 mcg 12/20/22 15:02 12/20/22 22:29 Fentanyl Citrate Inj (*Crx) 100 Mcg/2 Ml Vial IV PUSH 50 mcg Q2H PRN Administration Pain Rated 7-10 Filgrastim-Sndz 480 mcg 12/21/22 09:00 12/22/22 09:01 Filgrastim-Sndz 480 Mcg/0.8 Ml Syringe SUB-Q 480 mcg DAILY DAWN Administration Heparin Sodium (Beef Lung) 50 units 12/22/22 09:00 12/22/22 09:02 Heparin Flush 50 Units/5 Ml Syringe IV PUSH Not Given QAM DAWN Heparin Sodium (Beef Lung) 50 units 12/21/22 18:28 Heparin Flush 50 Units/5 Ml Syringe IV PUSH PRN PRN after intermittent infusion Heparin Sodium (Beef Lung) 50 units 12/21/22 18:28 Heparin Flush 50 Units/5 Ml Syringe IV PUSH PRN PRN after blood draws Heparin Sodium (Porcine) 500 units 12/21/22 18:28 Heparin Sodium Lock Flush 500 Units/5 Ml Syringe IV PUSH PRN PRN see comments below Metronidazole 500 mg in 100 mls @ 100 mls/hr 12/20/22 17:00 12/22/22 11:38 Flagyl 500 Mg/Iso Soln 100 Ml IVP
--- NOTE | 2022-12-22 13:54 | PM.IMPN ---
Progress Note: A&P Assessment and Plan (1) Neutropenic fever: Code(s): D70.9 - Neutropenia, unspecified; R50.81 - Fever presenting with conditions classified elsewhere Status: Acute (2) Acute hyponatremia: Code(s): E87.1 - Hypo-osmolality and hyponatremia Status: Acute (3) Transaminitis: Code(s): R74.01 - Elevation of levels of liver transaminase levels Status: Acute (4) Ileus: Code(s): K56.7 - Ileus, unspecified Status: Acute (5) Invasive ductal carcinoma of right breast, stage 2: Code(s): C50.911 - Malignant neoplasm of unspecified site of right female breast Status: Acute (6) Dilation of biliary tract: Code(s): K83.8 - Other specified diseases of biliary tract Status: Acute Plan # abdominal pain associated constipation. CT with biliary dilatation. Transaminitis however bilirubin mildly elevated and normal alkaline phosphatase. MRCP ordered which showed: 1. Mild intrahepatic and extrahepatic biliary duct dilatation. No choledocholithiasis. 2. Two pancreatic cystic lesions measuring up to 5 mm. The differential diagnosis includes pseudocyst, intraductal papillary mucinous neoplasm (IPMN), mucinous cystic neoplasm (MCN), serous cystadenoma, and neuroendocrine tumor. Consider abdomen MRI without and with contrast in 2 years, but only if the patient would be a possible future surgical candidate. GI consulted. # neutropenic fever likely due to chemo that was recently done on 12/12/2022. Filgastrim started. pancultured. Started on vancomycin and cefepime which will be continued. add Flagyl for GI coverage. oncology consulted.Continues to be neutropenic continue broad-spectrum antibiotics. Follow cultures # Enterocolitis : iv cefepime and iv flagyl. stool studies if stool sample # possible sepsis: With fever neutropenia and likely source biliary/ GI. chest x-ray negative. UA is negative # breast cancer on active chemotherapy s/p lumpectomy # hyponatremia 126 baseline 140. sodium level up to 133. changed fluid. now stable sodium levle, mildly low. # hypokalemia replace and monitor # code status full code # DVT prophylaxis Lovenox Subjective Date/time seen: 12/22/22 13:54 Interval history: No overnight events. She finally had a bowel movement. Which is still loose/watery. No further fever abdomen is still sore. No nausea vomiting and tolerating diet. Review of Systems Review of Systems: All systems reviewed & are unremarkable except as noted in HPI and below Exam Narrative: APPEARANCE: Well appearing, no distress, well-nourished. HEAD: normocephalic, atraumatic. EYES: PERRLA/EOMI, conjunctivae clear. NOSE: Normal no drainage NECK: Supple. No adenopathy, no masses. RESPIRATORY: Airway patent, respirations nonlabored. Clear to auscultation bilaterally, no rales, rhonchi, wheezing. CARDIOVASCULAR: Regular rate and rhythm without murmurs rubs or gallops. ABDOMINAL: Soft, Mildly distended, decreased bowel sounds, mild tender periumbilical area MUSCULOSKELETAL: Moves all extremities. Strength/ROM intact, No edema, No calf tenderness. NEURO: Alert. Cranial nerves II through XII intact.? Grossly intact SKIN: Warm, dry. Normal Color Objective Data Vital Signs Vital Signs: Vital Signs - 24 hr 12/21/22 14:00 12/21/22 21:58 12/21/22 20:00 Temperature 98.1 F 98.1 F Pulse Rate 87 75 Respiratory Rate 18 16 Blood Pressure 130/59 L 132/89 Pulse Oximetry 100 98 Oxygen Delivery Room Air 12/22/22 06:00 12/22/22 08:00 Temperature 98.1 F Pulse Rate 72 Respiratory Rate 16 Blood Pressure 130/71 Pulse Oximetry 95 Oxygen Delivery Room Air Intake/Output Intake/Output: Intake & Output 12/19/22 12/20/22 12/21/22 12/22/22 23:59 23:59 23:59 23:59 Intake Total 2590 3390 630 Output Total 800 300 200 Balance 1790 3090 430 Meds/Results Medications: Active Medications Generic Name Dose Route Start Last Admin Tra
[2022-12-22 14:00] VITALS: BP 119/53; PULSE 85; RESP 18; TEMP 36.4; O2SAT 100
[2022-12-22 18:23] LABS: IFOB Positive Control Positive; Immunochemical Fecal Occult Bl Negative (N)
[2022-12-22 18:53] LABS: Toxigenic C. Diff NEGATIVE (NEGATIVE)
[2022-12-22 20:09] LABS: Vancomycin Trough 5.2 ug/mL (10.0-20.0)
[2022-12-22 22:00] VITALS: BP 128/79; PULSE 83; RESP 18; TEMP 36.6; O2SAT 99
[2022-12-23] MEDS: ACETAMINOPHEN 325 MG TABLET 650 MG PO (00:27)
[2022-12-23] MEDS: metroNIDAZOLE 500 MG/ISO 100ML 500 MG/100 ML BAG 100 MG IVPB ×2 (05:33→10:09)
[2022-12-23] MEDS: CENTRAL LINE FLUSH 10 ML IV PUSH ×2 (05:34→13:01)
[2022-12-23 05:50] LABS: Hematocrit 30.3 % (37.0-47.0); Hemoglobin 9.9 g/dL (12.0-15.0); Mean Corpuscular HGB Conc 32.7 g/dl (32-36); Mean Corpuscular Hemoglobin 28.6 pg (26-34); Mean Corpuscular Volume 87.6 fl (80-100); Mean Platelet Volume 10.3 fl (7.4-10.4); Platelet Count Result 300 k/mm3 (150-375); Red Blood Count 3.46 M/mm3 (4.2-5.4); White Blood Count 14.6 K/mm3 (4.5-10.0)
[2022-12-23 06:00] VITALS: BP 118/52; PULSE 80; RESP 16; TEMP 36.6; O2SAT 95
[2022-12-23 06:02] LABS: Alanine Aminotransferase 43 U/L (6-35); Albumin Level 2.5 g/dL (3.5-5.1); Alkaline Phosphatase 70 U/L (38-126); Anion Gap 0 mmol/L (8-16); Aspartate Amino Transferase 29 U/L (14-36); Bilirubin,Total 0.4 mg/dL (0.2-1.3); Blood Urea Nitrogen 5 mg/dL (7-17); Calcium 7.9 mg/dL (8.4-10.2); Carbon Dioxide 31 mmol/L (22-30); Chloride 104 mmol/L (98-107); Estimated CRCL calculation 69 ml/min; Estimated Glomerular Filt Rate > 60; Glucose 106 mg/dL (65-110); Magnesium 1.6 mg/dL (1.6-2.3); Potassium 3.1 mmol/L (3.4-5.0); Sodium 135 mmol/L (137-145)
[2022-12-23 07:30] LABS: Band Neutrophils Percent 31 % (0-6); Eosinophils Absolute Manual 0.14 K/mm3 (0.02-0.5); Eosinophils Percent Manual 1 % (0-4); Lymphocytes Absolute Manual 2.62 K/mm3 (1.1-4.5); Metamyelocytes Percent 3 %; Monocytes Absolute Manual 1.89 K/mm3 (0.1-0.90); Monocytes Percent Manual 13 % (3-9); Neutrophils Absolute Manual 9.49 K/mm3 (1.7-7.2); Neutrophils Percent Manual 34 % (46-73); Platelet Estimate Adequate (Adequate); Total Cells Counted 100
[2022-12-23 07:31] LABS: Ovalocytes 1+ (NORMAL); Schistocytes None Seen (NORMAL)
[2022-12-23] MEDS: polyethylene glycoL 3350 17 GM POWD.PACK PO (08:28)
[2022-12-23] MEDS: POTASSIUM CHLORIDE 20 MEQ TABLET 40 MEQ PO (08:29)
[2022-12-23] MEDS: LACTULOSE 20 GM/30 ML UDC PO (08:30)
--- NOTE | 2022-12-23 13:07 | PDONCCN ---
[facility] - Date of Consult Date/Time: 12/23/22 13:07 Requesting Physician: Joel Meier MD Primary Care Provider: Romi Sylvester, DO - Consult Narrative Reason for consult: Breast cancer Narrative: Nayla Mejias is a 81 year old female with history of early stage breast cancer currently on adjuvant chemotherapy with Cytoxan and Taxotere. She received cycle 1 of chemotherapy on December 12. She came into the hospital with complain of 5 days of constipation with abdominal discomfort. She was feeling quite tired and fatigued. Labs showed WBC count of 1.4 with ANC of 0. She was slightly anemic as well. She did not receive Neulasta treatment at the [facility] due to not approval from the insurance. CT abdomen showed dilated intrahepatic and extrahepatic bile ducts. There was moderately distended small bowel with with finding concerning for ileus or enterocolitis. She was started on Neupogen with improvement in the WBC count. She is now having some diarrhea. She has been receiving MiraLax. Review of Systems - Review of Systems All systems reviewed & are unremarkable except as noted in HPI and [facility] Medical History: Medical History (Last Updated 12/22/22 @ 12:47 by Henrik Mederos MD) Breast cancer Constipation Hiatal hernia Hypokalemia Invasive ductal carcinoma of right breast, stage 2 Osteoarthritis Surgical History: Surgical History (Last Updated 11/04/22 @ 20:11 by Jesus Barry MD) Total knee replacement status - Social History Social History: Social History (Last Reviewed 11/04/22 @ 20:11 by Jesus Barry MD) Alcohol Use: Alcohol intake: never Substance Use: Substance use: never Others: Spiritual care concerns: No Living Arrangements: Living arrangements: alone Smoking Status: Smoking status: Never smoker Social Determinants of Health: Has the Lack of Transportation Kept You From Medical Appointments or From Getting Medications?: No Within the Past 12 Months, Were You Worried Whether Your Food Would Run Out Before You Got Money to Buy More?: Never True What is Your Housing Situation Today?: I Have Housing Are You Worried That in the Next 2 Months, You May Not Have Your Own Housing to Live In?: No Do You Have Trouble Paying Your Heating Or Electricity Bill?: No Do You Have Trouble Paying For Medicines?: No Are You Currently Unemployed and Looking for Work?: No Highest Level of Education Completed: Decline to Answer Do You Have Trouble With Childcare or the Care of a Family Member?: No Exam - Vital Signs Vital Signs - 24 hr 12/22/22 14:00 12/22/22 20:00 12/22/22 22:00 Temperature 36.4 C 36.6 C Pulse Rate 85 83 Respiratory Rate 18 18 Blood Pressure 119/53 L 128/79 Pulse Oximetry 100 99 Oxygen Delivery Room Air 12/23/22 06:00 12/23/22 08:00 Temperature 36.6 C Pulse Rate 80 Respiratory Rate 16 Blood Pressure 118/52 L Pulse Oximetry 95 Oxygen Delivery Room Air - Exam HEENT: EOMI, PERRLA, mucous membranes moist and pink Neck: supple. No: JVD Lungs: clear to auscultation, normal air movement Heart: no murmurs, gallops, or rubs, regular rhythm, regular rate Abdomen: abdomen soft, non-distended, normal bowel sounds Extremities: normal pulses Integumentary: no abnormalities Neurological: normal speech Psychological: mental status NL, mood NL - Lab Results Laboratory Last Values WBC 14.6 K/mm3 (4.5-10.0) H 12/23/22 05:35 RBC 3.46 M/mm3 (4.2-5.4) L 12/23/22 05:35 Hgb 9.9 g/dL (12.0-15.0) L 12/23/22 05:35 Hct 30.3 % (37.0-47.0) L 12/23/22 05:35 MCV 87.6 fl (80-100) 12/23/22 05:35 MCH 28.6 pg (26-34) 12/23/22 05:35 MCHC 32.7 g/dl (32-36) 12/23/22 05:35 RDW 12.0 % (11.5-14.5) 12/23/22 05:35 Plt Count 300 k/mm3 (150-375) 12/23/22 05:35 MPV 10.3 fl (7.4-10.4) 12/23/22 05:35
--- NOTE | 2022-12-23 13:37 | PM.IMPN ---
Progress Note: A&P Assessment and Plan (1) Neutropenic fever: Code(s): D70.9 - Neutropenia, unspecified; R50.81 - Fever presenting with conditions classified elsewhere Status: Acute (2) Acute hyponatremia: Code(s): E87.1 - Hypo-osmolality and hyponatremia Status: Acute (3) Transaminitis: Code(s): R74.01 - Elevation of levels of liver transaminase levels Status: Acute (4) Ileus: Code(s): K56.7 - Ileus, unspecified Status: Acute (5) Invasive ductal carcinoma of right breast, stage 2: Code(s): C50.911 - Malignant neoplasm of unspecified site of right female breast Status: Acute (6) Dilation of biliary tract: Code(s): K83.8 - Other specified diseases of biliary tract Status: Acute Plan # abdominal pain associated constipation. CT with biliary dilatation. Transaminitis however bilirubin mildly elevated and normal alkaline phosphatase. MRCP ordered which showed: 1. Mild intrahepatic and extrahepatic biliary duct dilatation. No choledocholithiasis. 2. Two pancreatic cystic lesions measuring up to 5 mm. The differential diagnosis includes pseudocyst, intraductal papillary mucinous neoplasm (IPMN), mucinous cystic neoplasm (MCN), serous cystadenoma, and neuroendocrine tumor. Consider abdomen MRI without and with contrast in 2 years, but only if the patient would be a possible future surgical candidate. GI consulted. Appreciate recommendations # neutropenic fever likely due to chemo that was recently done on 12/12/2022. Filgastrim started. pancultured. Started on vancomycin and cefepime which will be continued. add Flagyl for GI coverage. oncology consulted.Continues to be neutropenic continue broad-spectrum antibiotics. Follow cultures which has remained negative Stop vancomycin 12/22/2022. Stool studies been negative Continue on cefepime and Flagyl. May switch to oral at discharge will discontinue filgastrim today # Enterocolitis : iv cefepime and iv flagyl. stool studies reviewed. C diff negative. Other stool culture pending # possible sepsis: With fever neutropenia and likely source biliary/ GI. chest x-ray negative. UA is negative # breast cancer on active chemotherapy s/p lumpectomy # hyponatremia 126 baseline 140. sodium level up to 133. changed fluid. now stable sodium levle, mildly low. # hypokalemia replace and monitor # code status full code # DVT prophylaxis Lovenox Subjective Date/time seen: 12/23/22 13:37 Interval history: no overnight events. Still has some diarrhea with loose stool. Labs were reviewed. Discussed with the patient. Remains afebrile. Discussed with oncologist. Review of Systems Review of Systems: All systems reviewed & are unremarkable except as noted in HPI and below Exam Narrative: APPEARANCE: Well appearing, no distress, well-nourished. HEAD: normocephalic, atraumatic. EYES: PERRLA/EOMI, conjunctivae clear. NOSE: Normal no drainage NECK: Supple. No adenopathy, no masses. RESPIRATORY: Airway patent, respirations nonlabored. Clear to auscultation bilaterally, no rales, rhonchi, wheezing. CARDIOVASCULAR: Regular rate and rhythm without murmurs rubs or gallops. ABDOMINAL: Soft, Mildly distended, decreased bowel sounds, mild tender periumbilical area MUSCULOSKELETAL: Moves all extremities. Strength/ROM intact, No edema, No calf tenderness. NEURO: Alert. Cranial nerves II through XII intact.? Grossly intact SKIN: Warm, dry. Normal Color Objective Data Vital Signs Vital Signs: Vital Signs - 24 hr 12/22/22 14:00 12/22/22 20:00 12/22/22 22:00 Temperature 97.6 F 97.9 F Pulse Rate 85 83 Respiratory Rate 18 18 Blood Pressure 119/53 L 128/79 Pulse Oximetry 100 99 Oxygen Delivery Room Air 12/23/22 06:00 12/23/22 08:00 Temperature 97.9 F Pulse Rate 80 Respiratory Rate 16 Blood Pressure 118/52 L Pulse Oximetry 95 Oxygen Delivery Room Air Intake/Output Intake/Output: Intake &
[2022-12-23 14:00] VITALS: BP 118/50; PULSE 89; RESP 16; TEMP 36.6; O2SAT 98
--- NOTE | 2022-12-23 14:45 | WPDGIPROGNO ---
Progress Note: A&P Assessment and Plan (1) Constipation: Code(s): K59.00 - Constipation, unspecified Status: Acute Assessment and Plan: resolved and now with diarrhea will discontinue lactulose and change miralax to only as needed tolerating diet no objections to go home by GI standpoint (2) Dilation of biliary tract: Code(s): K83.8 - Other specified diseases of biliary tract Status: Acute Assessment and Plan: no choledocholithiasis lft's trending down and probably multifactorial (3) Neutropenic fever: Code(s): D70.9 - Neutropenia, unspecified; R50.81 - Fever presenting with conditions classified elsewhere Status: Acute Assessment and Plan: wbc up to 14k after medical treatment by primary and oncology (4) Transaminitis: Code(s): R74.01 - Elevation of levels of liver transaminase levels Status: Acute Assessment and Plan: trending down (5) Breast cancer: Code(s): C50.919 - Malignant neoplasm of unspecified site of unspecified female breast Status: Acute Assessment and Plan: will follow up with oncology (6) Hypokalemia: Code(s): E87.6 - Hypokalemia Status: Acute Subjective Date/time seen: 12/23/22 14:45 Interval history: doing well, now with several loose stools. Review of Systems Review of Systems: All systems reviewed & are unremarkable except as noted in HPI and below Exam Const: General: comfortable and no acute distress HENMT: Face/Nose/Sinus: Normal nares present Eyes: General: appearance normal, both eyes and all related structures Neck: Neck: no JVD Resp: Auscultation: clear to auscultation bilaterally Cardio: Rate: regular rate Rhythm: regular rhythm GI: Inspection: non-distended GI Palp: Yes Soft to palpation, Yes Tenderness to palpation present (GI) (mild ttp, no rebound, no guarding) and No Guarding due to palpation present (GI) Skin: General skin exam: normal color Neuro: General: gait normal Speech: normal speech Extrem: General: normal to inspection Psych: Mental Status: mental status grossly normal Objective Data Vital Signs Vital Signs: Vital Signs - 24 hr 12/22/22 20:00 12/22/22 22:00 12/23/22 06:00 Temperature 97.9 F 97.9 F Pulse Rate 83 80 Respiratory Rate 18 16 Blood Pressure 128/79 118/52 L Pulse Oximetry 99 95 Oxygen Delivery Room Air 12/23/22 08:00 12/23/22 14:00 Temperature 97.9 F Pulse Rate 89 Respiratory Rate 16 Blood Pressure 118/50 L Pulse Oximetry 98 Oxygen Delivery Room Air Intake/Output Intake/Output: Intake & Output 12/20/22 12/21/22 12/22/22 12/23/22 23:59 23:59 23:59 23:59 Intake Total 2590 3390 1520 780 Output Total 800 300 200 Balance 1790 3090 1320 780 Meds/Results Medications: Active Medications Generic Name Dose Route Start Last Admin Trade Name Freq PRN Reason Stop Dose Admin Acetaminophen 650 mg 12/21/22 01:02 12/23/22 00:27 Acetaminophen 325 Mg Tablet PO 650 mg Q6H PRN Administration Mild Pain (1-3) or Fever Heparin Sodium (Beef Lung) 50 units 12/22/22 09:00 12/23/22 08:28 Heparin Flush 50 Units/5 Ml Syringe IV PUSH 50 units QAM DAWN Administration Heparin Sodium (Beef Lung) 50 units 12/21/22 18:28 Heparin Flush 50 Units/5 Ml Syringe IV PUSH PRN PRN after intermittent infusion Heparin Sodium (Beef Lung) 50 units 12/21/22 18:28 Heparin Flush 50 Units/5 Ml Syringe IV PUSH PRN PRN after blood draws Heparin Sodium (Porcine) 500 units 12/21/22 18:28 Heparin Sodium Lock Flush 500 Units/5 Ml Syringe IV PUSH PRN PRN see comments below Metronidazole 500 mg in 100 mls @ 100 mls/hr 12/20/22 17:00 12/23/22 11:09 Flagyl 500 Mg/Iso Soln 100 Ml IVPB Infused Q6H DAWN Infusion Cefepime HCl 2 gm in 50 mls @ 100 mls/hr 12/22/22 09:00 12/23/22 08:58 Maxipime 2 Gm/D5w 50 Ml IVPB Infused Q8H DAWN Infusion
--- NOTE | 2022-12-23 16:26 | PM.DS ---
DS: Admitting Diagnosis Discharge Date 12/23/2022 Admitting Diagnosis Neutropenic fever DS: Discharge Diagnosis Discharge Diagnosis (1) Neutropenic fever: Code(s): D70.9 - Neutropenia, unspecified; R50.81 - Fever presenting with conditions classified elsewhere Status: Acute (2) Acute hyponatremia: Code(s): E87.1 - Hypo-osmolality and hyponatremia Status: Acute (3) Transaminitis: Code(s): R74.01 - Elevation of levels of liver transaminase levels Status: Acute (4) Ileus: Code(s): K56.7 - Ileus, unspecified Status: Acute (5) Invasive ductal carcinoma of right breast, stage 2: Code(s): C50.911 - Malignant neoplasm of unspecified site of right female breast Status: Acute (6) Dilation of biliary tract: Code(s): K83.8 - Other specified diseases of biliary tract Status: Acute DS: Summary Hospital Course Hospital Course: # neutropenic fever: Neutropenia related to chemo which was recently done on 12/12/2022. Patient was started on filgastrim. He was empirically started on vancomycin cefepime and Flagyl. She had CT findings of biliary dilatation as well as enterocolitis. With antibiotics her fever resolved. Her neutropenia has up with the medication. She will be switched to oral antibiotics to complete 7 days course of antibiotics. # abdominal pain with associated constipation.? CT with biliary dilatation.? Transaminitis however bilirubin mildly elevated and normal alkaline phosphatase.? MRCP ordered which showed: 1. Mild intrahepatic and extrahepatic biliary duct dilatation. No choledocholithiasis. 2. Two pancreatic cystic lesions measuring up to 5 mm. The differential diagnosis includes pseudocyst, intraductal papillary mucinous neoplasm (IPMN), mucinous cystic neoplasm (MCN), serous cystadenoma, and neuroendocrine tumor. Consider abdomen MRI without and with contrast in 2 years, but only if the patient would be a possible future surgical candidate. GI consulted.? Appreciate recommendations. Follow up with GI as an outpatient basis for pancreatic cyst as noted in the MRCP. #? Enterocolitis : iv cefepime and iv flagyl. stool studies reviewed.? C diff negative.? Stool culture negative so far. Clinically improved. # possible sepsis: With fever neutropenia and likely source biliary/ GI. ? chest x-ray negative.? UA is negative # breast cancer on active chemotherapy s/p lumpectomy. Oncology was consulted during the hospital stay # hyponatremia 126 baseline 140.? sodium level up to 133. changed fluid. now stable sodium levle, mildly low. # hypokalemia replace and monitor likely due to diarrhea and poor p.o. intake will give 40 of potassium every day for 3 days at discharge # code status full code # DVT prophylaxis Lovenox Time Spent with Patient Time attestation: Total time spent providing and/or coordinating discharge services: 45 minutes Exam Narrative: APPEARANCE: Well appearing, no distress, well-nourished. HEAD: normocephalic, atraumatic. EYES: PERRLA/EOMI, conjunctivae clear. NOSE: Normal no drainage NECK: Supple. No adenopathy, no masses. RESPIRATORY: Airway patent, respirations nonlabored. Clear to auscultation bilaterally, no rales, rhonchi, wheezing. CARDIOVASCULAR: Regular rate and rhythm without murmurs rubs or gallops. ABDOMINAL: Soft, Mildly distended, decreased bowel sounds, mild tender periumbilical area MUSCULOSKELETAL: Moves all extremities. Strength/ROM intact, No edema, No calf tenderness. NEURO: Alert. Cranial nerves II through XII intact.? Grossly intact SKIN: Warm, dry. Normal Color DS: Data Data Completed and Pending Labs on day of discharge: Labs from last 24 hours 12/23/22 12/23/22 12/22/22 05:35 05:35 18:05 WBC 14.6 H RBC 3.46 L Hgb 9.9 L Hct 30.3 L MCV 87.6 MCH 28.6 MCHC 32.7 RDW 12.0 Plt Count 300 MPV 10.3 Immature Gran % (Auto) Not Reportable Neut % (Auto) Not R
[2022-12-23] MEDS: HEPARIN SODIUM LOCK FLUSH 500 UNITS/5 ML SYRINGE IV PUSH (17:05)
[2022-12-23] MEDS: NEOMYCIN/POLYMYXIN/BACITRACIN OINTMENT PACKET 1 PACKET (17:11)
== END 2022-12-23 17:17 | disposition home or self-care (01) | DRG 872 ==
LOC: ANHED 15:02 → ANH3MED 15:37
PROVIDERS: Admitting Provider Chiropractor; Emergency Provider Emergency Medicine; PCP Internal Medicine; Visit Provider Internal Medicine
DX: A41.9 Sepsis, unspecified organism (principal); E87.1 Hypo-osmolality and hyponatremia; K86.2 Cyst of pancreas; D70.1 Agranulocytosis secondary to cancer chemotherapy; R50.81 Fever presenting with conditions classified elsewhere; T45.1X5A Adverse effect of antineoplastic and immunosuppressive drugs, initial encounter; C50.911 Malignant neoplasm of unspecified site of right female breast; E87.6 Hypokalemia; K52.9 Noninfective gastroenteritis and colitis, unspecified; K83.8 Other specified diseases of biliary tract; K59.00 Constipation, unspecified; Z20.822 Contact with and (suspected) exposure to COVID-19; Z96.659 Presence of unspecified artificial knee joint; M19.90 Unspecified osteoarthritis, unspecified site; K44.9 Diaphragmatic hernia without obstruction or gangrene; R74.01 Elevation of levels of liver transaminase levels; Z90.710 Acquired absence of both cervix and uterus
CPT/HCPCS: 36415; 71045; 74177; 74183; 76376; 80048; 80053; 80202; 81001; 82274; 83605; 83690; 83735; 85025; 85610; 85730; 87040; 87045; 87177; 87209; 87269; 87272; 87427; 87493; 87637; 89055; 99285; A9270; A9577; J0131; J0692; J1642; J2405; J3010; J3370; J7030; Q5101; Q9967

== ENCOUNTER 2025-02-28 11:00 | Outpatient (RCR) | payer MEDICARE, OTHER, SELFPAY ==
[2023-02-26 14:12] VITALS: BMI 18.8
[2023-02-26 14:14] VITALS: BP 120/56; PULSE 88; RESP 20; TEMP 36.8; O2SAT 96
--- NOTE | 2023-02-26 14:19 | PDRADONCCN ---
Recommendations RECOMMENDATIONS I had a lengthy discussion with her and her granddaughter about the management options for her breast cancer and the role of radiation therapy. I also provided her written literature about radiation. I described the treatment options for early stage breast cancer, including mastectomy with possible need for postoperative radiation depending on pathologic factors such as surgical margins and axillary lymph node status, or lumpectomy followed by breast radiation. I explained that multiple randomized trials have demonstrated that whole breast radiation following breast conserving surgery produces long-term equivalence to mastectomy in terms of local regional control as well as survival. I explained that after breast conserving surgery with negative surgical margins, approximately one third of women will experience ipsilateral breast recurrence with surgery alone, and that adjuvant breast radiation reduces ipsilateral breast cancer recurrence by at least 70%. I described a hypofractionated course of adjuvant whole breast radiation following lumpectomy, delivered daily M-F over appropriately 4 weeks, depending on the surgical margins. I described the simulation procedure, treatment technique, expected outcome, possible acute side effects, and potential long-term risks of breast radiation. Specifically, the acute side effects may include not limited to fatigue, localized skin redness/dryness/tanning, dry with/without moist desquamation, breast/chestwall discomfort. ?Subacutely, there is a small risk (<?1%) of symptomatic radiation pneumonitis that could require treatment with?steroids. ?Long-term risks include, among other things, persistent pigmentary changes, telangiectasias, skin or soft tissue fibrosis?(which could be tender),?breast swelling, breast shrinkage,?rib fracture (although rare even in elderly osteoporotic women), lung scarring (which is generally asymptomatic), heart disease (in left sided patients), and rare secondary malignancies (although elevated risk in smokers). She expressed good understanding of the issues discussed, and her questions were addressed. She is interested in proceeding with hypofractionated whole breast radiation. She will return for CT simulation for radiation treatment planning next week. Approximately 60 minutes total time was spent on the patient's consultation today including reviewing her medical records and imaging studies in preparation for the consultation, time spent with the patient including counseling of the patient on treatment recommendations, documentation, and coordination of care. More than half the time was spent discussing treatment options and potential risks and benefits. Thank you for asking me to assist in the care of your patient. If any further questions or concerns should arise, please do not hesitate to contact me. Lani Becker Mai, MD This note was transcribed using '[employer]', a computerized voice recognition without a human truss puller helper. This report may or may not have been adjusted for typographical, grammatical and syntax errors. 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 She completed adjuvant chemotherapy (TC x 4 cycles) on 02/20/2023. [facility] - Date/Time Seen 02/26/23 14:19 DATE OF SERVICE: 02/26/2023 DIAGNOSIS Breast Cancer, RIGHT upper central, pT1c N0sn, Triple Neg Pathologic Stage T1c N0sn Mx (AJCC 8th edition: Anatomic stage IA & Prognostic stage IB) Date of Diagnosis: 07/25/2022 Path: 18 mm G3 NS9 IDC with papillary features, (-)DCIS, (+)LVSI, 0/1 SLN, (-)mar(5 mm posterior) Prognostic Factors: ER(-) 00/8, AK(-) 0/8, H2N(-) by FISH, Ki-67 60% Surgeon(s): Joel Faria Surgery: RT Lump/SLN (10/01/2022) Med Onc: Adam OncotypeDX: n/a Chemo: Adjuvant TC x 4 cycles (12/12 - 02/20/2023) Rad Onc: Marry Radiation: Antiestrogen Therapy: none (ER neg) IDENTIFICATION Nayla Mejias is an 82-year-old woman with clinically-detected pathologic stage T1c N0sn Mx (AJCC 8th edition: Anatomic stage IA & Prognostic stage IB) TRIPLE NEGATIVE, 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 She completed adjuvant chemotherapy (TC x 4 cycles) on 02/20/2023. She is seen in consultation at the request of Dr Medina for a radiation oncology opinion. She is accompanied by her grand-daughter (Kathy). HISTORY OF PRESENT ILLNESS Presentation / Summary She presented for evaluation right breast pain and left breast mass. Diagnostic imaging was performed on 07/09/2022. Mammogram demonstrated a new dense focal asymmetry with ill-defined margins in the right breast at 12:00 with no suspicious microcalcifications, and no abnormalities in the left breast. Ultrasound demonstrated a corresponding 1.6 cm irregular hypoechoic mass in the right breast at 12:00 1-2 cm from the nipple with no suspicious adenopathy, and at the area of palpable concern in the left breast at 2:00 5 cm from nipple there was only normal-appearing breast tissue. On 07/25/2022, ultrasound-guided biopsy was performed and imaging after the procedure demonstrated expected position of the biopsy marking clip. He demonstrated at least a 1 cm high-grade invasive ductal, ER/AK negative, HER2/minh unamplified by FISH, Ki-67 60%. Definite surgery was delayed because she developed cat scratch fever on her left lower extremity. On 10/01/2022, breast conserving surgery was performed by Dr. Joel Faria. Specimen radiograph demonstrated the biopsy marker clip and mass within the tissue. Pathology revealed a unifocal 18 mm invasive ductal carcinoma with papillary features, no DCIS, LVSI was present, and margins negative by at least 5 mm (posterior). 1 sentinel node was negative for metastasis. She has completed adjuvant chemotherapy to consist of 4 cycles of TC (12/12/2022 - 02/20/2023). After the first cycle, she was admitted to hospital with constipation, abdominal pain, neutropenia, and CT imaging was concerning for ileus or enterocolitis. She tolerated the remaining for chemotherapy well. She is experiencing fatigue but no neuropathy and did not have weight loss. Cancer Screening Last Bilateral Mammogram: ) Last PAP Test: n/a (s/p total hyst) Last Colonoscopy: 20 yrs ago Last Stool Immunoassay for Hemoglobin: negative - 11/2022 Prior Radiation Treatment: none Radiation Considerations: Collagen Vascular Disorders: No known history of active collagen vascular disease including Scleroderma or SLE Inflammatory Bowel Disease: No known history of inflammatory bowel disease including Crohn's disease or Ulcerative colitis. Implanted Devices: No implanted pacemaker, defibrillator, loop recorder, or nerve stimulator. Claustrophobia: YES - Claustrophobic, mild Tobacco Use: No history of smoking Additional Medical/Social History Lives in [place], [place]. 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 No unexplained weight loss, loss of appetite, fevers or chills, night sweats. HEENT: (+)PMD. No sore throat, neck swelling, pain or difficulty swallowing. No changes in voice, taste, vision, or hearing. RESPIRATORY: (+)Productive Cough. No shortness of breath, wheezing, or hemoptysis. CARDIOVASCULAR: No chest pain, palpitations, or history of heart disease. ENDOCRINE: No hypothyroidism. No diabetes mellitus. GASTROINTESTINAL: No gastroesophageal reflux disease. No diarrhea, rectal bleeding, constipation. No nausea, vomiting, or abdominal pain. URINARY: No dysuria, hematuria, or incontinence. MUSCULOSKELETAL: (+)LBP with left-sided sciatic-like pain. No new focal bony aches or pain. PSYCHOLOGICAL: No anxiety or depression. No poor sleep DERMATOLOGICAL: No skin rashes or lesions BREASTS: (+)Breast cancer per HPI NEUROLOGIC: No headaches or confusion. No focal motor weakness, numbness, paresthesias, ataxia. No seizure disorder. PAIN ASSESSMENT AND MANAGEMENT Pain Assessment: 0/10 (no pain) Pain Management: no pain (no intervention needed) PERFORMANCE STATUS ECOG Performance Score: 0-1 - Medical History Medical History (Last Reviewed 02/26/23 @ 14:41 by Lani Becker Mai, MD) Breast cancer Constipation Hiatal hernia Hypokalemia Invasive ductal carcinoma of right breast, stage 2 Osteoarthritis - Surgical History Surgical History (Last Reviewed 02/26/23 @ 14:41 by Lani Becker Mai, MD) Total knee replacement status - Social History Social History (Last Reviewed 02/26/23 @ 14:41 by Lani Becker Mai, MD) Alcohol Use: Alcohol intake: never Substance Use: Substance use: never Others: Spiritual care concerns: No Living Arrangements: Living arrangements: alone Smoking Status: Smoking status: Never smoker Social Determinants of Health: Has the Lack of Transportation Kept You From Medical Appointments or From Getting Medications?: No Within the Past 12 Months, Were You Worried Whether Your Food Would Run Out Before You Got Money to Buy More?: Never True What is Your Housing Situation Today?: I Have Housing Are You Worried That in the Next 2 Months, You May Not Have Your Own Housing to Live In?: No Do You Have Trouble Paying Your Heating Or Electricity Bill?: No Do You Have Trouble Paying For Medicines?: No Are You Currently Unemployed and Looking for Work?: No Highest Level of Education Completed: Decline to Answer Do You Have Trouble With Childcare or the Care of a Family Member?: No - Allergies Allergies Allergy/AdvReac Type Severity Reaction Status Date / Time No Known Allergies Allergy Verified 02/26/23 14:13 Exam - General PHYSICAL EXAM GENERAL: Well-nourished well-developed woman resting comfortably in the exam room, in no acute distress. HEENT: Normocephalic, atraumatic. Extraocular muscles intact. Pupils equal, round, and reactive. Sclerae anicteric and conjunctivae clear. Face symmetrical. NECK: Supple without thyromegaly or masses. LYMPHATICS: No cervical, supraclavicular, infraclavicular, or axillary adenopathy. LUNGS: Clear to auscultation bilaterally. No wheezes, rhonchi or rales. No dullness to percussion. HEART: Regular rate and rhythm. No murmurs, rubs, or gallops. MUSCULOSKELETAL: No tenderness over the axial or appendicular skeleton. EXTREMITIES: No definite upper extremity lymphedema. Good range of motion of both upper extremities at the shoulders. No clubbing or cyanosis.. ABDOMEN: Soft, nontender, nondistended, without hepatosplenomegaly or masses. No rebound or guarding. BREASTS: Well-healed lumpectomy incision in the upper central right breast with volume loss and mild retraction. Approximately 3.5 x 3.5 cm lumpectomy bed seroma/hematoma in the upper central breast. No erythema or breast edema. No suspicious masses. Negative contralateral left breast exam. AXILLA: Axillary incision is well healed. No axillary adenopathy. NEUROLOGIC/PSYCHOLOGIC: Alert and oriented. Normal affect and mood. Speech is fluent and comprehension appears intact. Moves all 4 extremities well with no gross focal motor deficits. Gait is steady. - Vital Signs Vital Signs - 24 hr 04/06/23 14:14 Temperature 36.8 C Pulse Rate 88 Respiratory Rate 20 Blood Pressure 120/56 L Pulse Oximetry 96 - Radiologic Data IMAGING US BREAST BILATERAL LIMITED; DIAGNOSTIC MAMMOGRAM BILATERAL W KAN: 07/09/2023 REASON FOR STUDY: ? 81-year-old female presents for evaluation of a right breast area of itching/pain and a left breast palpable lump. COMPARISON: ? Mammography from 05/28/2021, 04/23/2020, and 01/11/2019 FINDINGS: DENSITY: The breasts are heterogeneously dense, which may obscure small masses. MAMMOGRAM FINDINGS: A radiopaque marker has been placed on the right breast at the 12 o'clock position, denoting the area of itching/pain. ?Underlying the radiopaque marker is a new dense focal asymmetry with ill-defined margins. ? This focal asymmetry persists with spot compression and?measures approximately 1.5 cm in maximum dimension. Another radiopaque marker has been placed on the upper outer left breast, denoting the palpable area of concern. ?No suspicious finding is evident underlying this radiopaque marker. Vascular calcifications and scattered benign-appearing calcifications are present within both breasts. ?There are no other suspicious findings in either breast evident by mammogram. ULTRASOUND FINDINGS: Targeted sonographic evaluation of the right breast area of itching/pain at the 12 o'clock position, 1-2 cm from the nipple demonstrates a 1.2 x 1.1 x 1.6 cm irregular hypoechoic mass with microlobulated and angular margins. ?This correlates with the described mammographic focal asymmetry. Targeted sonographic evaluation of the left breast palpable area of concern at 2 o'clock, 5 cm from the nipple demonstrates only normal breast tissue with no mass, cyst, or other abnormality evident at this location by ultrasound. Sonographic evaluation of the right axilla demonstrates no evidence of suspicious axillary lymphadenopathy. IMPRESSION: ? 1. ? The irregular hypoechoic mass at the area of itching/pain in the right breast (12 o'clock, 1-2 cm from the nipple) is highly suspicious for malignancy. ?Ultrasound-guided biopsy is recommended. 2. ? No evidence of right axillary lymphadenopathy by ultrasound. 3. ? No suspicious finding by mammogram or ultrasound at the left breast palpable area of concern (2 o'clock, 5 cm from the nipple). ?Clinical follow-up is recommended. ?Any further evaluation regarding this palpable area should be based on clinical grounds. 4. ? No mammographic or sonographic evidence of malignancy in the left breast. ?Recommend screening mammography of the left breast in 1 year. BIRADS 5 - Highly suggestive of malignancy. ?Biopsy is recommended.
--- NOTE | 2023-03-05 13:33 | P.RADPN_ITS ---
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 She completed adjuvant chemotherapy (TC x 4 cycles) on 02/20/2023. - Plan 1. I reviewed the potential acute and late toxicity of right whole breast radiation. Questions were addressed. Radiation therapy treatment consent was reviewed and signed. 2. CT simulation will be performed today. 3. Scheduled for?Block check?simulation?on?Thursday, March 16. ?She will start radiation treatment on March 17. 4. We have discussed avoiding antioxidant vitamin supplementation during radiation treatments. 5. Skin care was reviewed. Written information and Aquaphor samples were provided. Lani Becker Mai, MD This note was transcribed using '[employer] a computerized voice recognition without a human can patcher. This report may or may not have been adjusted for typographical, grammatical and syntax errors. Follow Up Note - Date/Time 03/05/23 13:33 DATE OF SERVICE: 03/05/2023 DIAGNOSIS Breast Cancer, RIGHT upper central , pT1c N0sn, Triple Neg Pathologic Stage T1c N0sn Mx (AJCC 8th edition: Anatomic stage IA & Prognostic stage IB) Date of Diagnosis: 07/25/2022 Path: 18 mm G3 NS9 IDC with papillary features, (-)DCIS, (+)LVSI, (-)mar(5 mm posterior), 0/1 SLN Prognostic Factors: ER(-) 00/8, [place](-) 0/8, H2N(-) by FISH, Ki-67 60% Surgeon(s): Joel Faria Surgery: RT Lump/SLN (10/01/2022) Med Onc: Adam OncotypeDX: n/a Chemo: Adjuvant TC x 4 cycles (12/12 - 02/20/2023) Rad Onc: Marry Radiation: Antiestrogen Therapy: none (ER neg) IDENTIFICATION Nayla Mejias is an 82-year-old woman with clinically-detected pathologic stage T1c N0sn Mx (AJCC 8th edition: Anatomic stage IA & Prognostic stage IB) TRIPLE NEGATIVE, 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 She completed adjuvant chemotherapy (TC x 4 cycles) on 02/20/2023. She was recently seen in consultation at the request of Dr Medina for a radiation oncology opinion and was interested in hypofractionated whole breast radiation. She returns today for a CT simulation for radiation treatment planning. She is accompanied by her grand-daughter (Kathy). HISTORY OF PRESENT ILLNESS Interval History She returns today for a CT simulation for radiation treatment planning. She is fatigued from chemotherapy. She denies breast or arm pain. She has no new questions or concerns. Presentation / Oncology Summary She presented for evaluation right breast pain and left breast mass. Diagnostic imaging was performed on 07/09/2022. Mammogram demonstrated a new dense focal asymmetry with ill-defined margins in the right breast at 12:00 with no suspicious microcalcifications, and no abnormalities in the left breast. Ultrasound demonstrated a corresponding 1.6 cm irregular hypoechoic mass in the right breast at 12:00 1-2 cm from the nipple with no suspicious adenopathy, and at the area of palpable concern in the left breast at 2:00 5 cm from nipple there was only normal-appearing breast tissue. On 07/25/2022, ultrasound-guided biopsy was performed and imaging after the procedure demonstrated expected position of the biopsy marking clip. He demonstrated at least a 1 cm high-grade invasive ductal, ER/[place] negative, HE R2/minh unamplified by FISH, Ki-67 60%. Definite surgery was delayed because she developed cat scratch fever on her left lower extremity. On 10/01/2022, breast conserving surgery was performed by Dr. Joel Faria. Specimen radiograph demonstrated the biopsy marker clip and mass within the tissue. Pathology revealed a unifocal 18 mm invasive ductal carcinoma with papillary features, no DCIS, LVSI was present, and margins negative by at least 5 mm (posterior). 1 sentinel node was negative for metastasis. She has completed adjuvant chemotherapy to consist of 4 cycles of TC (12/12/2022 - 02/20/2023). After the first cycle, she was admitted to hospital with constipation, abdominal pain, neutropenia, and CT imaging was concerning for ileus or enterocolitis. She tolerated the remaining for chemotherapy well. She is experiencing fatigue but no neuropathy and did not have weight loss. Cancer Screening Last Bilateral Mammogram: ) Last PAP Test: n/a (s/p total hyst) Last Colonoscopy: 20 yrs ago Last Stool Immunoassay for Hemoglobin: negative - 11/2022 Prior Radiation Treatment: none Radiation Considerations: Collagen Vascular Disorders: No known history of active collagen vascular disease including Scleroderma or SLE Inflammatory Bowel Disease: No known history of inflammatory bowel disease including Crohn's disease or Ulcerative colitis. Implanted Devices: No implanted pacemaker, defibrillator, loop recorder, or nerve stimulator. Claustrophobia: YES - Claustrophobic, mild Tobacco Use: No history of smoking Additional Medical/Social History Lives in [place], [place]. 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 S/p total hyst for dysfunction bleeding HRT: YES - 3-4 years after hyst, discontinued in 50s REVIEW OF SYMPTOMS (+)Energy loss/fatigue from chemotherapy. (+)PMD. (+)Productive Cough. (+)LBP with left-sided sciatic-like pain. No new focal bony aches or pain. (+)Breast cancer per HPI. Remaining systems review per history. PAIN ASSESSMENT / MANAGEMENT Pain Assessment: 0/10 (no pain) Pain Management: no pain (no intervention needed) PERFORMANCE STATUS ECOG Performance Score: 0-1 H&P - Exam - General PHYSICAL EXAMINATION GENERAL: Well-nourished well-developed woman resting comfortably in the exam room, in no acute distress. LUNGS: Breathing comfortably on RA. BREASTS: Well-healed lumpectomy incision in the upper central right breast with volume loss and mild retraction. Approximately 3.5 x 3.5 cm lumpectomy bed seroma/hematoma in the upper central breast. No erythema or breast edema. AXILLA: Axillary incision is well-healed. NEUROLOGIC/PSYCHOLOGIC: Alert. Normal affect and mood. Speech is fluent and comprehension appears intact. Moves all 4 extremities well. Gait is steady.
[2023-03-05 13:40] VITALS: BP 108/64; PULSE 90; RESP 20; TEMP 37.1; O2SAT 96
--- NOTE | 2023-03-05 14:15 | WPDONCRADTXP ---
Radiation Treatment Plan - Date/Time Date/Time: 03/05/23 14:[address] SIMULATION PROCEDURE PROCEDURE DATE:? 03/05/[address] SIMULATION PURPOSE: The patient is undergoing a virtual CT simulation for external beam radiation treatment planning. TREATMENT SITE(S): Right Breast NUMBER OF AREAS OR DURÁN: 1 treatment area(s) EQUIPMENT USED: Simulation was performed on the radiation department's dedicated CT simulator. IMMOBILIZATION: Vac-loc CONTRAST MEDIA: None EXTERNAL MARKERS: A radio-opaque catheter was placed on the surgical scar within the treatment area. Radiopaque markers were placed at the clinical breast borders. TATTOOS: Positioning tattoos were applied to the patient's skin. NUMBER OF TREATMENT PORTS: Tangential ports with wedges, multiple MLC segments, and/or DMLC for dose modulation BLOCKING: Custom blocks of complex design will be designed to cover the target volume within the treatment field(s) ISODOSE PLAN: An isodose plan will be performed to establish the dose distribution within the treatment volume SCHEDULING Prior to delivering the first radiation fraction, a confirmatory simulation will be performed on the linear accelerator to verify the isocenter location and block design IMAGING QA: Weekly electronic portal imaging will be obtained Lani Becker Mai, MD
--- NOTE | 2023-03-05 14:17 | WPDONCRADTXP ---
Radiation Treatment Plan - Date/Time Date/Time: 03/05/23 14:17 RADIATION ONCOLOGY CLINICAL TREATMENT PLAN PROCEDURE DATE:? 03/05/2023 TREATMENT INTENT: Cure, Local control SPECIAL TEST(S) INTERPRETED FOR TUMOR DELINEATION: None CHEMOTHERAPY CONSIDERATIONS: Recent chemotherapy - within 3 months (Adjuvant TC x 4 cycles (12/12 - 02/20/2023)) PROTOCOL ENROLLMENT/BEING CONSIDERED: none TREATMENT SITE(S): Right Breast NUMBER OF AREAS OR DURÁN: 1 treatment area(s) NUMBER OF TREATMENT PORTS: Tangential ports with wedges, multiple MLC segments, and/or DMLC for dose modulation IMMOBILIZATION: Vac-loc TREATMENT DEVICES: Custom blocks of complex design. TREATMENT MODALITY: External photon beam PLANNED DOSE: 4256 cGy in 16 fractions of 266 cGy to RIGHT breast Breast boost of 1000 cGy in 4 fractions of 250 cGy to approximately 5256 cGy total cumulative dose FRACTIONATION: Daily (Qday) TECHNIQUE CONTEMPLATED: 3D-ENVIRONMENTAL TEST TECHNICIAN Lani Becker Mai, MD
--- NOTE | 2023-03-16 10:57 | WPDRADIATPRO ---
Radiation Procedure Note - Date/Time Date/Time: 03/16/23 10:57 - Summary Summary: RADIATION ONCOLOGY VERIFICATION SIMULATION PROCEDURE DATE: 03/16/23 PURPOSE: The patient initially underwent virtual CT simulation. A verification simulation was performed on the linear accelerator utilizing electronic portal imaging for isocenter verification and as a block check to confirm that the MLC shape is correct. TREATMENT SITE(S): RIGHT breast EQUIPMENT USED: Simulation was performed on the linear accelerator. PROCEDURE DETAILS: This simulation was performed prior to the first radiation fraction. The patient was positioned on the linear accelerator treatment couch in treatment position. The graticule was placed in the block tray. A double-exposure EPI of each treatment field was obtained and reviewed in conjunction with the corresponding digitally reconstructed radiograph (DRR). The accuracy of the patient alignment, isocenter positioning, and MLC design was assessed. PORTAL ARRANGEMENT: Coplanar Medial/Lateral Breast Tangential Ports ASSESSMENT: The port films were assessed prior to treatment. The field shapes were determined to precisely match the DRR, and the isocenter had shifts ordered to be in alignment with the treatment plan. ORDERS: Proceed with the treatment blocks as planned after shift. Darell Read MD
[2023-03-17 11:35] VITALS: BP 130/60; PULSE 77; RESP 20; TEMP 36.2; O2SAT 98
--- NOTE | 2023-03-17 11:45 | P.RADONC_ITS ---
Assessment and Plan - Additional Plan Assessment / Treatment Plan Continue radiation therapy as planned. Tolerating treatment well. Port films checked. Instructed on proper skin care. Continue current skin care regimen. Discussed sun precautions for the treated area. Reviewed possible acute side-effects from breast radiation. Questions were addressed to her apparent satisfaction. Lani Díaz Mai, MD This note was transcribed using '[employer]', a computerized voice recognition without a human top stop attacher. This report may or may not have been adjusted for typographical, grammatical and syntax errors. On Treatment Visit - Date/Time of Treatment Date/Time: 03/17/23 11:45 Diagnosis Breast Cancer, RIGHT upper central , pT1c N0sn, Triple Neg Pathologic Stage T1c N0sn Mx (AJCC 8th edition: Anatomic stage IA & Prognostic stage IB) Date of Diagnosis: 07/25/2022 Path: 18 mm G3 NS9 IDC with papillary features, (-)DCIS, (+)LVSI, (-)mar(5 mm posterior), 0/1 SLN Prognostic Factors: ER(-) 00/8, OR(-) 0/8, H2N(-) by FISH, Ki-67 60% Surgeon(s): Joel Faria Surgery: RT Lump/SLN (10/01/2022) Med Onc: Adam OncotypeDX: n/a Chemo: Adjuvant TC x 4 cycles (12/12 - 02/20/2023) Rad Onc: Marry Radiation: 03/17 - Antiestrogen Therapy: none (ER neg) Identification Nayla Mejias is an 82-year-old woman with clinically-detected pathologic stage T1c N0sn Mx (AJCC 8th edition: Anatomic stage IA & Prognostic stage IB) TRIPLE NEGATIVE, 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 She completed adjuvant chemotherapy (TC x 4 cycles) on 02/20/2023. She is now receiving hypofractionated whole breast radiation. Treatment Site: RIGHT Whole Breast Chemotherapy Considerations: TC x 4 cycles (12/12 - 02/20/2023) Treatment Technique: 3D-MANAGEMENT SERVICES TECHNICIAN Dose Right Breast at 266 cGy of 4256 cGy (supine) Breast Boost at 0 cGy of 1000 cGy Fractions 1 of 20 Interval History Fatigued from recent chemotherapy. No breast/skin complaints. Applying Eucerin cream 2 times daily to the treated area. No new concerns. Pain Assessment and Management Pain Assessment: 0/10 (no pain) Pain Management: no pain (no intervention needed) H&P - Exam - General Physical Examination GENERAL: Appears well. No acute distress. LUNGS: Breathing comfortably on room air. RIGHT BREAST/SKIN: No radiation dermatitis. No miliaria. Skin intact. Well-healed lumpectomy incision in the upper central right breast with underlying lumpectomy bed seroma, and increasing volume loss with retraction as the seroma continues to resolve (predated breast radiation). - Vital Signs Vital Signs - 24 hr 03/17/23 11:35 Temperature 36.2 C L Pulse Rate 77 Respiratory Rate 20 Blood Pressure 130/60 Pulse Oximetry 98
[2023-03-24 10:00] VITALS: BP 120/54; PULSE 84; RESP 20; TEMP 36.6; O2SAT 98
--- NOTE | 2023-03-24 10:14 | P.RADONC_ITS ---
Assessment and Plan - Additional Plan Assessment / Treatment Plan Continue radiation therapy as planned. Tolerating treatment well. Port films checked. Instructed on proper skin care. Recommended moisturizing 2x/day. Discussed sun precautions for the treated area. Lani Díaz Mai, MD This note was transcribed using '[email or web address]', a computerized voice recognition without a human hospice spiritual care coordinator. This report may or may not have been adjusted for typographical, grammatical and syntax errors. On Treatment Visit - Date/Time of Treatment Date/Time: 03/24/23 10:14 Diagnosis Breast Cancer, RIGHT upper central , pT1c N0sn, Triple Neg Pathologic Stage T1c N0sn Mx (AJCC 8th edition: Anatomic stage IA & Prognostic stage IB) Date of Diagnosis: 07/25/2022 Path: 18 mm G3 NS9 IDC with papillary features, (-)DCIS, (+)LVSI, (-)mar(5 mm posterior), 0/1 SLN Prognostic Factors: ER(-) 00/8, MO(-) 0/8, H2N(-) by FISH, Ki-67 60% Surgeon(s): Joel Faria Surgery: RT Lump/SLN (10/01/2022) Med Onc: Adam OncotypeDX: n/a Chemo: Adjuvant TC x 4 cycles (12/12 - 02/20/2023) Rad Onc: Marry Radiation: 03/17 - Antiestrogen Therapy: none (ER neg) Identification Nayla Mejias is an 82-year-old woman with clinically-detected pathologic stage T1c N0sn Mx (AJCC 8th edition: Anatomic stage IA & Prognostic stage IB) TRIPLE NEGATIVE, 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 She completed adjuvant chemotherapy (TC x 4 cycles) on 02/20/2023. She is now receiving hypofractionated whole breast radiation. Treatment Site: RIGHT Whole Breast Chemotherapy Considerations: TC x 4 cycles (12/12 - 02/20/2023) Treatment Technique: 3D-MULTI OPERATION MACHINE OPERATOR Dose Right Breast at 1596 cGy of 4256 cGy (supine) Breast Boost at 0 cGy of 1000 cGy Fractions 6 of 20 Interval History Fatigued from recent chemotherapy. No breast/skin complaints. Applying Eucerin cream 1 time daily to the treated area. No new concerns. Pain Assessment and Management Pain Assessment: 0/10 (no pain) Pain Management: no pain (no intervention needed) H&P - Exam - General Physical Examination GENERAL: Appears well. No acute distress. LUNGS: Breathing comfortably on room air. RIGHT BREAST/SKIN: No radiation dermatitis. No miliaria. Skin intact. Well-healed lumpectomy incision in the upper central right breast with underlying lumpectomy bed seroma, and increasing volume loss with retraction as the seroma continues to resolve (predated breast radiation). - Vital Signs Vital Signs - 24 hr 03/24/23 10:00 Temperature 36.6 C Pulse Rate 84 Respiratory Rate 20 Blood Pressure 120/54 L Pulse Oximetry 98
[2023-03-31 10:00] VITALS: BP 145/62; PULSE 81; RESP 20; TEMP 36.9; O2SAT 97
--- NOTE | 2023-03-31 10:10 | WPDRADONCOTV ---
Assessment and Plan - Additional Plan Assessment / Treatment Plan Continue radiation therapy as planned. Tolerating treatment well. Port films checked. Continue current skin care regimen including sun precautions for the treated area. I discussed the role of regular moderate exercise (30 minutes 5 days/week or 150 minutes/week) and a low-fat diet in lowering breast cancer recurrence risk and cancer risk in general. She will call Dr Medina's office to do genetic testing. Lani Díaz Mai, MD This note was transcribed using '[employer]', a computerized voice recognition without a human carbon capture power plant operator. This report may or may not have been adjusted for typographical, grammatical and syntax errors. On Treatment Visit - Date/Time of Treatment Date/Time: 03/31/23 10:10 Diagnosis Breast Cancer, RIGHT upper central, pT1c N0sn, Triple Neg Pathologic Stage T1c N0sn Mx (AJCC 8th edition: Anatomic stage IA & Prognostic stage IB) Date of Diagnosis: 07/25/2022 Path: 18 mm G3 NS9 IDC with papillary features, (-)DCIS, (+)LVSI, (-)mar(5 mm posterior), 0/1 SLN Prognostic Factors: ER(-) 00/8, ID(-) 0/8, H2N(-) by FISH, Ki-67 60% Surgeon(s): Joel Faria Surgery: RT Lump/SLN (10/01/2022) Med Onc: Adam OncotypeDX: n/a Chemo: Adjuvant TC x 4 cycles (12/12 - 02/20/2023) Rad Onc: Marry Radiation: 03/17 - Antiestrogen Therapy: none (ER neg) Identification Nayla Mejias is an 82-year-old woman with clinically-detected pathologic stage T1c N0sn Mx (AJCC 8th edition: Anatomic stage IA & Prognostic stage IB) TRIPLE NEGATIVE, 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 She completed adjuvant chemotherapy (TC x 4 cycles) on 02/20/2023. She is now receiving hypofractionated whole breast radiation. Treatment Site: RIGHT Whole Breast Chemotherapy Considerations: TC x 4 cycles (12/12 - 02/20/2023) Treatment Technique: 3D-CABIN WORKER Dose Right Breast at 2926 cGy of 4256 cGy (supine) Breast Boost at 0 cGy of 1000 cGy Fractions 11 of 20 Interval History Fatigued from recent chemotherapy. No breast/skin complaints. Applying Eucerin cream 2x/day to the treated area. No new concerns. Interested in genetic testing. Pain Assessment and Management Pain Assessment: 0/10 (no pain) Pain Management: no pain (no intervention needed) H&P - Exam - General Physical Examination GENERAL: Appears well. No acute distress. LUNGS: Breathing comfortably on room air. RIGHT BREAST/SKIN: No radiation dermatitis. No miliaria. Skin intact. Well-healed lumpectomy incision in the upper central right breast with underlying lumpectomy bed seroma, and increasing volume loss with retraction as the seroma continues to resolve (predated breast radiation). - Vital Signs Vital Signs - 24 hr 03/31/23 10:00 Temperature 36.9 C Pulse Rate 81 Respiratory Rate 20 Blood Pressure 145/62 H Pulse Oximetry 97
--- NOTE | 2023-04-06 08:45 | P.RAD.PCN_ITS ---
Radiation Procedure Note - Date/Time Date/Time: 04/06/23 08:45 RADIATION ONCOLOGY VIRTUAL BREAST BOOST SIMULATION DIAGNOSIS: Breast Cancer, RIGHT upper central , pT1c N0sn, Triple Neg Pathologic Stage T1c N0sn Mx (AJCC 8th edition: Anatomic stage IA & Prognostic stage IB) Date of Diagnosis: 07/25/2022 Path: 18 mm G3 NS9 IDC with papillary features, (-)DCIS, (+)LVSI, (-)mar(5 mm posterior), 0/1 SLN Prognostic Factors: ER(-) 0/8, OR(-) 0/8, H2N(-) by FISH, Ki-67 60% Surgeon(s): Joel Faria Surgery: RT Lump/SLN (10/01/2022) Med Onc: Adam OncotypeDX: n/a Chemo: Adjuvant TC x 4 cycles (12/12 - 02/20/2023) Rad Onc: Marry Radiation: 03/17 - Antiestrogen Therapy: none (ER neg) PURPOSE: This is a virtual simulation to continue the treatment planning and block fabrication after reaching the planned dose to the initial treatment maier. TREATMENT SITE: Lumpectomy Bed PROCEDURE: The original CT dataset was re-accessed using the [employer] computer-aided treatment planning software. I utilized this CT dataset to design cone-down boost maier to continue to treat the lumpectomy bed while protecting the adjacent breast tissue and nearby critical normal structures including the lung and heart. This resulted in custom conformal blocks. Subsequently, DRRs were constructed showing the relationship of the treatment miaer to the tumor volume and adjacent critical normal structures. I determined the optimal beam arrangement to consist of a single electron port. ISODOSE PLAN: An Isodose plan will be performed to deliver a specified dose to the treatment volume and to confirm adequate protection of nearby critical normal tissues. SCHEDULING Prior to beginning the cone down boost portion of treatment, a simulation will be performed on the linear accelerator utilizing electronic portal imaging to verify the isocenter location and block design. Lani Becker Mai, MD
[2023-04-06 13:14] VITALS: BP 130/60; PULSE 80; RESP 20; TEMP 36.8; O2SAT 97
--- NOTE | 2023-04-06 13:14 | P.RADONC_ITS ---
Assessment and Plan - Additional Plan Assessment / Treatment Plan Continue radiation therapy as planned. Tolerating treatment well. Port films checked. I discussed the lumpectomy bed electron field boost starting after 2 more whole breast treatment fractions. Continue current skin care regimen including sun precautions for the treated area. [id number]-fzegjze 1% hydrocortisone cream was recommended for symptomatic miliaria. I have discussed the role of regular moderate exercise (30 minutes 5 days/week or 150 minutes/week) and a low-fat diet in lowering breast cancer recurrence risk and cancer risk in general. She is interested in genetic testing. She will call Dr Medina's office for this. Lani Díaz Mai, MD This note was transcribed using '[employer] a computerized voice recognition without a human armor reconnaissance vehicle driver. This report may or may not have been adjusted for typographical, grammatical and syntax errors. On Treatment Visit - Date/Time of Treatment Date/Time: 04/06/23 13:14 Diagnosis Breast Cancer, RIGHT upper central , pT1c N0sn, Triple Neg Pathologic Stage T1c N0sn Mx (AJCC 8th edition: Anatomic stage IA & Prognostic stage IB) Date of Diagnosis: 07/25/2022 Path: 18 mm G3 NS9 IDC with papillary features, (-)DCIS, (+)LVSI, (-)mar(5 mm posterior), 0/1 SLN Prognostic Factors: ER(-) 00/8, ND(-) 0/8, H2N(-) by FISH, Ki-67 60% Surgeon(s): Joel Faria Surgery: RT Lump/SLN (10/01/2022) Med Onc: Adam OncotypeDX: n/a Chemo: Adjuvant TC x 4 cycles (12/12 - 02/20/2023) Rad Onc: Marry Radiation: 03/17 - Antiestrogen Therapy: none (ER neg) Identification Nayla Mejias is an 82-year-old woman with clinically-detected pathologic stage T1c N0sn Mx (AJCC 8th edition: Anatomic stage IA & Prognostic stage IB) TRIPLE NEGATIVE, 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 She completed adjuvant chemotherapy (TC x 4 cycles) on 02/20/2023. She is now receiving hypofractionated whole breast radiation. Treatment Site: RIGHT Whole Breast Chemotherapy Considerations: TC x 4 cycles (12/12 - 02/20/2023) Treatment Technique: 3D-MANAGER LICENSING Dose Right Breast at 3724 cGy of 4256 cGy (supine) Breast Boost at 0 cGy of 1000 cGy Fractions 14 of 20 Interval History Fatigued from recent chemotherapy. She developed an itchy rash over the upper inner quadrant of the right breast over the last week, for which she is applying 1% hydrocortisone cream with relief. Applying Eucerin cream 2x/day to the treated area. No new concerns. Pain Assessment and Management Pain Assessment: 0/10 (no pain) Pain Management: no pain (no intervention needed) H&P - Exam - General Physical Examination GENERAL: Appears well. No acute distress. LUNGS: Breathing comfortably on room air. RIGHT BREAST/SKIN: Mild right breast erythema. Mild miliaria in the upper inner quadrant. Skin intact. Well-healed lumpectomy incision in the upper central right breast with underlying lumpectomy bed seroma, and increasing volume loss with retraction as the seroma continues to resolve (predated breast radiation).
--- NOTE | 2023-04-09 09:49 | WPDRADIATPRO ---
Radiation Procedure Note - Date/Time Date/Time: 04/09/23 09:49 RADIATION ONCOLOGY BREAST BLOCK CHECK SIMULATION (BOOST DURÁN) PROCEDURE DATE:?04/09/2023 PURPOSE: The patient initially underwent virtual CT simulation. She has completed the whole breast ports. A simple simulation is now being performed on the linear accelerator for verification of the new isocenter location and as a block check to confirm that the boost field design is accurate. TREATMENT SITE(S): Lumpectomy Bed EQUIPMENT USED: Simulation was performed on the linear accelerator. PROCEDURE DETAILS: This simulation was performed prior to beginning this boost portion of treatment. The patient was positioned on the linear accelerator treatment couch in treatment position at the tattooed three-point set-up point. Couch shifts were applied as designated by the CT-based dosimetry treatment plan. The position of the boost field isocenter assessed clinically and reviewed in conjunction with the corresponding digitally reconstructed radiograph (DRR). A radiograph of the boost field(s) was taken and approved. The isocenter was then marked on the patient's skin with a Sharpie marking pen. NUMBER OF AREAS OR DURÁN: One treatment area was simulated today. PORTAL ARRANGEMENT: A single electron port EQUIPMENT USED: Simulation was performed on the department?s linear accelerator. IMMOBILIZATION: A new custom immobilization device was not needed for this simulation. The originally fabricated alpha-cradle was employed. EXTERNAL MARKERS: A radio-opaque catheter was placed on the patient?s surgical scar within the treatment area. ASSESSMENT: The?patient's set-up was clinically assessed prior to treatment today. Patient isocenter was in alignment with the treatment plan; however, the boost port(s) required modification. ORDERS: Re-cut the electron block prior to treatment tomorrow. Lani Becker Mai, MD
--- NOTE | 2023-04-14 09:58 | P.RADONC_ITS ---
Assessment and Plan - Additional Plan Assessment / Treatment Plan Radiation therapy is complete. Tolerated treatment well. Port films checked. Electron clinical setup checked prior to treatment again today. Continue current skin care regimen including sun precautions for the treated area. Ok to use Lidocaine cream for skin irritation under the arm. If ineffective, will prescribe Silvadene cream. Also recommended padding over the area of skin irritation to decrease rubbing from her bra - 2x2 dressing samples were provided. Zmbu-[id number] 1% hydrocortisone cream if needed for symptomatic miliaria. Continue applying cream until the skin is no longer red/pink, dry, or itchy. I have discussed the role of regular moderate exercise (30 minutes 5 days/week or 150 minutes/week) and a low-fat diet in lowering breast cancer recurrence risk and cancer risk in general. She is interested in genetic testing. She will call Dr Medina's office for this. Continue sun precautions for the treated area. I discussed the timing and symptoms of radiation pneumonitis, a rare subacute toxicity that may occur within the first 6 months following breast radiation. Return for follow-up visit in 6 weeks; however, I cautioned her that with hypofractionated breast RT, often the skin reaction peaks ~ 1 week after completing RT and she should call with any skin concerns. Lani Díaz Mai, MD This note was transcribed using '[employer] a computerized voice recognition without a human physician underwriter. This report may or may not have been adjusted for typographical, grammatical and syntax errors. On Treatment Visit - Date/Time of Treatment Date/Time: 04/14/23 09:58 Diagnosis Breast Cancer, RIGHT upper central , pT1c N0sn, Triple Neg Pathologic Stage T1c N0sn Mx (AJCC 8th edition: Anatomic stage IA & Prognostic stage IB) Date of Diagnosis: 07/25/2022 Path: 18 mm G3 NS9 IDC with papillary features, (-)DCIS, (+)LVSI, (-)mar(5 mm posterior), 0/1 SLN Prognostic Factors: ER(-) 00/8, TX(-) 0/8, H2N(-) by FISH, Ki-67 60% Surgeon(s): Joel Faria Surgery: RT Lump/SLN (10/01/2022) Med Onc: Adam OncotypeDX: n/a Chemo: Adjuvant TC x 4 cycles (12/12 - 02/20/2023) Rad Onc: Marry Radiation: 03/17 - 04/14/2023; RIGHT whole breast hypofractionation Right Breast 4256 cGy at 266 cGy x 16 fractions Breast Boost 1000 cGy at 250 cGy x 4 fractions Antiestrogen Therapy: none (ER neg) Identification Nayla Mejias is an 82-year-old woman with clinically-detected pathologic stage T1c N0sn Mx (AJCC 8th edition: Anatomic stage IA & Prognostic stage IB) TRIPLE NEGATIVE, 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 She completed adjuvant chemotherapy (TC x 4 cycles) on 02/20/2023. She is now receiving hypofraction ated whole breast radiation. Treatment Site: RIGHT Whole Breast Chemotherapy Considerations: TC x 4 cycles (12/12 - 02/20/2023) Treatment Technique: 3D-INTELLIGENCE INTERN Dose Right Breast at 4256 cGy of 4256 cGy (supine) Breast Boost at 1000 cGy of 1000 cGy Fractions 20 of 20 Interval History Fatigued from recent chemotherapy. She developed an itchy rash over the upper inner quadrant of the right breast over the last week for which she is applying 1% hydrocortisone cream with relief, now nearly resolved. Mild skin irritation in the far upper outer breast where the arm rubs. Applying Eucerin cream 2x/day to the treated area. Pain Assessment and Management Pain Assessment: 0/10 (no pain) Pain Management: no pain (no intervention needed) H&P - Exam - General Physical Examination GENERAL: Appears well. No acute distress. LUNGS: Breathing comfortably on room air. RIGHT BREAST/SKIN: Mild to moderate right breast erythema. Minimal miliaria in the upper inner quadrant. Skin intact. Well-healed lumpectomy incision in the upper central right breast with underlying lumpectomy bed seroma, and increasing volume loss with retraction as the seroma continues to resolve (predated breast radiation).
[2023-04-14 10:15] VITALS: BP 135/65; PULSE 80; RESP 20; TEMP 36.9; O2SAT 98
--- NOTE | 2023-04-14 10:15 | WPDRADIATTXS ---
Radiation Treatment Summary - Date/Time Date/Time: 04/14/23 10:15 RADIATION ONCOLOGY TREATMENT COMPLETION SUMMARY Diagnosis Breast Cancer, RIGHT upper central, pT1c N0sn, Triple Neg Pathologic Stage T1c N0sn Mx (AJCC 8th edition: Anatomic stage IA & Prognostic stage IB) Date of Diagnosis: 07/25/2022 Path: 18 mm G3 NS9 IDC with papillary features, (-)DCIS, (+)LVSI, (-)mar(5 mm posterior), 0/1 SLN Prognostic Factors: ER(-) 00/8, SC(-) 0/8, H2N(-) by FISH, Ki-67 60% Surgeon(s): Joel Faria Surgery: RT Lump/SLN (10/01/2022) Med Onc: Adam OncotypeDX: n/a Chemo: Adjuvant TC x 4 cycles (12/12 - 02/20/2023) Rad Onc: Marry Radiation: 03/17 - 04/14/2023; RIGHT whole breast hypofractionation Right Breast 4256 cGy at 266 cGy x 16 fractions Breast Boost 1000 cGy at 250 cGy x 4 fractions Antiestrogen Therapy: none (ER neg) Identification Nayla Mejias is an 82-year-old woman with clinically-detected pathologic stage T1c N0sn Mx (AJCC 8th edition: Anatomic stage IA & Prognostic stage IB) TRIPLE NEGATIVE, 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 She completed adjuvant chemotherapy (TC x 4 cycles) on 02/20/2023. She has now completed adjuvant hypofractionated whole breast radiation. Treatment Delivered Site: RIGHT whole breast Dates: 03/17 - 04/14/2023, over 28 elapsed days Dose Delivered: Right Breast - 4256 cGy at 266 cGy x 16 fractions Breast Boost - 1000 cGy at 250 cGy x 4 fractions Chemotherapy Considerations: Adjuvant TC x 4 cycles (12/12 - 02/20/2023) Treatment Technique: 3D-COMMERCIAL LOAN REVIEWER Whole breast medial/lateral coplanar tangents, 6/18 MV, MLC control points. Lumpectomy Bed direct 9/12 MeV electron boost Her upper body was immobilized in a supine treatment position with a custom fabricated Vac-Loc device. CT simulation was utilized for 3D-COMMERCIAL LOAN REVIEWER treatment planning and DVH analysis. Tolerance She tolerated radiation treatment very well, developing fatigue and mild to moderate skin erythema with mild UIQ miliaria and no desquamation. Skin reactions were managed with Eucerin cream and OTC Hydrocortisone 1% cream. Disposition 1. Radiation treatment is completed. 2. Return for follow-up visit in 6 weeks. Lani Díaz Mai, MD This note was transcribed using '[employer]', a computerized voice recognition without a human medical observer. This report may or may not have been adjusted for typographical, grammatical and syntax errors.
[2023-06-05 08:51] VITALS: BP 126/64; PULSE 78; TEMP 36.7; O2SAT 97
--- NOTE | 2023-06-05 09:04 | PDRADONCFUV ---
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 She received adjuvant chemotherapy (TC x 4 cycles) followed by hypofractionated whole breast radiation completed 6 weeks ago. She has no clinical evidence of recurrent disease. - Plan PLAN 1. Return for follow-up in 6 months. 2. Palpable UOQ left breast density. Left breast US ordered. Bilateral Mammograms scheduled in June 2023. 3. Seeing Dr. Medina in June 2023. 4. Seeing her breast surgeon, Dr. Joel Faria, with mammograms next month. 5. She was encouraged to call with questions or concerns prior to her next appointment. Lani Becker Mai, MD Follow Up Note - Date/Time 06/05/23 09:04 DIAGNOSIS Breast Cancer, RIGHT upper central, pT1c N0sn, Triple Neg Pathologic Stage T1c N0sn Mx (AJCC 8th edition: Anatomic stage IA & Prognostic stage IB) Date of Diagnosis: 07/25/2022 Path: 18 mm G3 NS9 IDC with papillary features, (-)DCIS, (+)LVSI, (-)mar(5 mm posterior), 0/1 SLN Prognostic Factors: ER(-) 0/8, HI(-) 0/8, H2N(-) by FISH, Ki-67 60% Surgeon(s): Joel Faria Surgery: RT Lump/SLN (10/01/2022) Med Onc: Adam OncotypeDX: n/a Chemo: Adjuvant TC x 4 cycles (12/12 - 02/20/2023) Rad Onc: Marry Radiation: 03/17 - 04/14/2023; RIGHT whole breast hypofractionation Right Breast 4256 cGy at 266 cGy x 16 fractions Breast Boost 1000 cGy at 250 cGy x 4 fractions Antiestrogen Therapy: none (ER neg) IDENTIFICATION Nayla Mejias is an 82-year-old woman with clinically-detected pathologic stage T1c N0sn Mx (AJCC 8th edition: Anatomic stage IA & Prognostic stage IB) TRIPLE NEGATIVE, 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 She completed adjuvant chemotherapy (TC x 4 cycles) on 02/20/2023, and hypofractionated whole breast radiation on 04/14/2023. She returns now for a routine follow-up visit. INTERVAL HISTORY Her skin healed quickly after completion of treatment and she denies any breast swelling or discomfort. Her tumor was estrogen negative, therefore she is not on anti-estrogen therapy. No specific complaints today. She denies unintentional weight loss, frequent or severe?headaches,?persistent?cough,?new or worsening dyspnea,?fever,?chest pain, abdominal or pelvic?discomfort, new bony pain, arm pain or swelling,?or new breast symptomatology. ONCOLOGY HISTORY Presentation / Oncology Summary She presented for evaluation right breast pain and left breast mass. Diagnostic imaging was performed on 07/09/2022. Mammogram demonstrated a new dense focal asymmetry with ill-defined margins in the right breast at 12:00 with no suspicious microcalcifications, and no abnormalities in the left breast. Ultrasound demonstrated a corresponding 1.6 cm irregular hypoechoic mass in the right breast at 12:00 1-2 cm from the nipple with no suspicious adenopathy, and at the area of palpable concern in the left breast at 2:00 5 cm from nipple there was only normal-appearing breast tissue. On 07/25/2022, ultrasound-guided biopsy was performed and imaging after the procedure demonstrated expected position of the biopsy marking clip. He demonstrated at least a 1 cm high-grade invasive ductal, ER/HI negative, HER2/minh unamplified by FISH, Ki-67 60%. Definite surgery was delayed because she developed cat scratch fever on her left lower extremity. On 10/01/2022, breast conserving surgery was performed by Dr. Joel Faria. Specimen radiograph demonstrated the biopsy marker clip and mass within the tissue. Pathology revealed a unifocal 18 mm invasive ductal carcinoma with papillary features, no DCIS, LVSI was present, and margins negative by at least 5 mm (posterior). 1 sentinel node was negative for metastasis. She has completed adjuvant chemotherapy to consist of 4 cycles of TC (12/12/2022 - 02/20/2023). After the first cycle, she was admitted to hospital with constipation, abdominal pain, neutropenia, and CT imaging was concerning for ileus or enterocolitis. She tolerated the remaining for chemotherapy well. She is experiencing fatigue but no neuropathy and did not have weight loss. Cancer Screening Last Bilateral Mammogram: 07/09/2022 Last PAP Test: n/a (s/p total hyst) Last Colonoscopy: 20 yrs ago Last Stool Immunoassay for Hemoglobin: negative - 11/2022 Prior Radiation Treatment: none Radiation Considerations: Collagen Vascular Disorders: No known history of active collagen vascular disease including Scleroderma or SLE Inflammatory Bowel Disease: No known history of inflammatory bowel disease including Crohn's disease or Ulcerative colitis. Implanted Devices: No implanted pacemaker, defibrillator, loop recorder, or nerve stimulator. Claustrophobia: YES - Claustrophobic, mild Tobacco Use: No history of smoking Additional Medical/Social History Lives in [place], [place]. 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 S/p total hyst for dysfunction bleeding HRT: YES - 3-4 years after hyst, discontinued in 50s REVIEW OF SYMPTOMS (+)Energy loss/fatigue (+)PMD. (+)Productive Cough. (+)LBP with left-sided sciatic-like pain. No new focal bony aches or pain. (+)Breast cancer per HPI. Remaining systems review per history. PAIN ASSESSMENT / MANAGEMENT Pain Assessment: 0/10 (no pain) Pain Management: no pain (no intervention needed) PERFORMANCE STATUS ECOG Performance Score: 0 H&P - Exam - General PHYSICAL EXAM GENERAL: Well-nourished well-developed woman resting comfortably in the exam room, in no acute distress. NECK: Supple without thyromegaly or masses. LYMPHATICS: No cervical, supraclavicular, infraclavicular or axillary adenopathy. LUNGS: Clear to auscultation and percussion bilaterally. No wheezes, rhonchi, or rales HEART: Regular rate and rhythm without murmurs, rubs, or gallops. MUSCULOSKELETAL: No tenderness over the axial or appendicular skeleton. ABDOMEN: Soft, nontender and nondistended, without hepatosplenomegaly or masses. No rebound or guarding. EXTREMITIES: No arm lymphedema. No clubbing or cyanosis. BREASTS: Examination of the right breast demonstrates a well-healed lumpectomy scar in the upper central breast, with volume loss and mild retraction which predated breast radiation and is increasing as the lumpectomy bed seroma continues to resolve. No breast edema. No erythema. Mild tanning/hyperpigmentation. No right breast masses. Examination of the contralateral left breast demonstrates ill-defined dense breast tissue in the UOQ measuring ~ 3 x 2.5 cm, otherwise unremarkable. AXILLA: Well healed scar on the right. No axillary adenopathy. NEUROLOGIC/PSYCHOLOGIC: Alert. Normal affect and mood. Speech is fluent and comprehension appears intact. Moves all 4 extremities well. Gait is steady. - Vital Signs Vital Signs - 24 hr 06/05/23 08:51 Temperature 36.7 C Pulse Rate 78 Blood Pressure 126/64 Pulse Oximetry 97
--- NOTE | 2023-06-05 11:26 | PC.NURSE ---
Called DR Faria nurse,Carmela to coordinate the US with Ms Mejias mammogram for June 2023, Carmela stated she is going to check into this and call me back. I will fax the order if needed once I hear back from the surgeons office.
--- NOTE | 2023-06-05 11:44 | PC.NURSE ---
Carmela returned the call. She is ordering the Mammogram and Ultrasound for Ms Mejias in June and will let us know the results. I am sending office visit notes to her now: Fax number is [phone].
[2023-12-04 10:08] VITALS: BP 138/60; PULSE 78; TEMP 36.6; O2SAT 96
--- NOTE | 2023-12-04 10:15 | PDRADONCFUV ---
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 She received adjuvant chemotherapy (TC x 4 cycles) followed by hypofractionated whole breast radiation completed 7-1/2 months ago. She has no clinical evidence of recurrent disease. PLAN 1. Return for follow-up in 1 year. 2. Bilateral Mammograms due in June 2024. 3. Seeing Dr. Medina in Dec 2023. 4. Seeing her breast surgeon, Dr. Joel Faria, with mammograms in 06/2024. 5. Continued regular moderate exercise (30 minutes 5 days/week or 150 minutes/week) was encouraged. Studies have shown lower breast cancer recurrence risk and cancer risk in general. 6. She was encouraged to call with questions or concerns prior to her next appointment. Lani Becker Mai, MD Follow Up Note - Date/Time 12/04/23 10:15 DIAGNOSIS Breast Cancer, RIGHT upper central, pT1c N0sn, Triple Neg Pathologic Stage T1c N0sn Mx (AJCC 8th edition: Anatomic stage IA & Prognostic stage IB) Date of Diagnosis: 07/25/2022 Path: 18 mm G3 NS9 IDC with papillary features, (-)DCIS, (+)LVSI, (-)mar(5 mm posterior), 0/1 SLN Prognostic Factors: ER(-) 0/8, NV(-) 0/8, H2N(-) by FISH, Ki-67 60% Surgeon(s): Joel Faria Surgery: RT Lump/SLN (10/01/2022) Med Onc: Adam OncotypeDX: n/a Chemo: Adjuvant TC x 4 cycles (12/12 - 02/20/2023) Rad Onc: Marry Radiation: 03/17 - 04/14/2023; RIGHT whole breast hypofractionation Right Breast 4256 cGy at 266 cGy x 16 fractions Breast Boost 1000 cGy at 250 cGy x 4 fractions Antiestrogen Therapy: none (ER neg) IDENTIFICATION Nayla Mejias is an 82-year-old woman with clinically-detected pathologic stage T1c N0sn Mx (AJCC 8th edition: Anatomic stage IA & Prognostic stage IB) TRIPLE NEGATIVE, 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 She completed adjuvant chemotherapy (TC x 4 cycles) on 02/20/2023, and hypofractionated whole breast radiation on 04/14/2023. She returns now for a routine follow-up visit. INTERVAL HISTORY Since she was last seen, Ms Mejias has been doing well other than a recent sinus infection for which she is on antibiotics. Her tumor was estrogen negative, therefore she is not on anti-estrogen therapy. She still has right breast tenderness at the lumpectomy site; no other specific complaints today. She denies unintentional weight loss, frequent or severe?headaches,?persistent?cough,?new or worsening dyspnea,?fever,?chest pain, abdominal or pelvic?discomfort, new bony pain, arm pain or swelling,?or new breast symptomatology. Bilateral 3D diagnostic mammograms and left breast ultrasound were performed on 06/24/2023 at an outside hospital. Imaging demonstrated postoperative/posttreatment changes in the right breast and no suspicious findings in either breast. 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 Cancer Screening Last Bilateral Mammogram: 06/24/2023 Last PAP Test: n/a (s/p total hyst) Last Colonoscopy: 20+ yrs ago Last Stool Immunoassay for Hemoglobin: negative - 11/2022 ONCOLOGY HISTORY Presentation / Oncology Summary She presented for evaluation right breast pain and left breast mass. Diagnostic imaging was performed on 07/09/2022. Mammogram demonstrated a new dense focal asymmetry with ill-defined margins in the right breast at 12:00 with no suspicious microcalcifications, and no abnormalities in the left breast. Ultrasound demonstrated a corresponding 1.6 cm irregular hypoechoic mass in the right breast at 12:00 1-2 cm from the nipple with no suspicious adenopathy, and at the area of palpable concern in the left breast at 2:00 5 cm from nipple there was only normal-appearing breast tissue. On 07/25/2022, ultrasound-guided biopsy was performed and imaging after the procedure demonstrated expected position of the biopsy marking clip. He demonstrated at least a 1 cm high-grade invasive ductal, ER/NV negative, HER2/minh unamplified by FISH, Ki-67 60%. Definite surgery was delayed because she developed cat scratch fever on her left lower extremity. On 10/01/2022, breast conserving surgery was performed by Dr. Joel Faria. Specimen radiograph demonstrated the biopsy marker clip and mass within the tissue. Pathology revealed a unifocal 18 mm invasive ductal carcinoma with papillary features, no DCIS, LVSI was present, and margins negative by at least 5 mm (posterior). 1 sentinel node was negative for metastasis. She has completed adjuvant chemotherapy to consist of 4 cycles of TC (12/12/2022 - 02/20/2023). After the first cycle, she was admitted to hospital with constipation, abdominal pain, neutropenia, and CT imaging was concerning for ileus or enterocolitis. She tolerated the remaining for chemotherapy well. She is experiencing fatigue but no neuropathy and did not have weight loss. She completed hypofractionated whole breast radiation on 04/14/2023. Her skin healed quickly after completion of treatment and she denies any breast swelling or discomfort. Prior Radiation Treatment: none Radiation Considerations: Collagen Vascular Disorders: No known history of active collagen vascular disease including Scleroderma or SLE Inflammatory Bowel Disease: No known history of inflammatory bowel disease including Crohn's disease or Ulcerative colitis. Implanted Devices: No implanted pacemaker, defibrillator, loop recorder, or nerve stimulator. Claustrophobia: YES - Claustrophobic, mild Tobacco Use: No history of smoking Additional Medical/Social History Lives in [place], [place]. 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 S/p total hyst for dysfunction bleeding HRT: YES - 3-4 years after hyst, discontinued in 50s REVIEW OF SYMPTOMS (+)Energy loss/fatigue (+)PMD. (+)LBP with left-sided sciatic-like pain. No new focal bony aches or pain. Remaining systems review per history. PAIN ASSESSMENT / MANAGEMENT Pain Assessment: 0/10 (no pain) Pain Management: no pain (no intervention needed) PERFORMANCE STATUS ECOG Performance Score: 0 H&P - Exam - General PHYSICAL EXAM GENERAL: Well-nourished well-developed woman resting comfortably in the exam room, in no acute distress. NECK: Supple without masses. LYMPHATICS: No cervical, supraclavicular, infraclavicular or axillary adenopathy. LUNGS: Clear to auscultation and percussion bilaterally. No wheezes, rhonchi, or rales HEART: Regular rate and rhythm without murmurs, rubs, or gallops. MUSCULOSKELETAL: No tenderness over the axial or appendicular skeleton. ABDOMEN: Soft, nontender and nondistended, without hepatosplenomegaly or masses. No rebound or guarding. EXTREMITIES: No arm lymphedema. No clubbing or cyanosis. BREASTS: Examination of the right breast demonstrates a well-healed lumpectomy scar in the upper central breast, with volume loss and mild retraction which predated breast radiation and is increasing as the lumpectomy bed seroma continues to resolve. No breast edema. No erythema. No residual tanning/hyperpigmentation. Mild tenderness at the lumpectomy site. No right breast masses. Examination of the contralateral left breast is unremarkable. AXILLA: Well healed scar on the right. No axillary adenopathy. NEUROLOGIC/PSYCHOLOGIC: Alert. Normal affect and mood. Speech is fluent and comprehension appears intact. Moves all 4 extremities well. Gait is steady. - Vital Signs Vital Signs - 24 hr 12/04/23 10:08 Temperature 36.6 C Pulse Rate 78 Blood Pressure 138/60 Pulse Oximetry 96
[2025-02-28 10:56] VITALS: BP 137/75; PULSE 90; RESP 12; TEMP 36.8; O2SAT 99
--- NOTE | 2025-02-28 11:13 | PDRADONCFUV ---
Follow Up Note Date/Time Date/Time: 02/28/25 11:13 Identifying Data Identifying Data: Breast Cancer, RIGHT upper central?, pT1c N0sn, Triple Neg Pathologic Stage T1c N0sn Mx (AJCC 8th edition: Anatomic stage IA & Prognostic stage IB) Date of Diagnosis: 07/25/2022 Path: 18 mm G3 NS9 IDC with papillary features, (-)DCIS, (+)LVSI, (-)mar(5 mm posterior), 0/1 SLN Prognostic Factors: ER(-) 0/8, [place](-) 0/8, H2N(-) by FISH, Ki-67 60% Surgeon(s): Joel Faria Surgery: RT Lump/SLN (10/01/2022) Med Onc: Adam OncotypeDX: n/a Chemo: Adjuvant TC x 4 cycles (12/12 - 02/20/2023) Rad Onc: Marry Radiation: 03/17 - 04/14/2023; RIGHT whole breast hypofractionation Right Breast 4256 cGy at 266 cGy x 16 fractions Breast Boost 1000 cGy at 250 cGy x 4 fractions Antiestrogen Therapy: none (ER neg) Interval History Interval History: Very pleasant lady who is here for follow-up today after completing her external beam radiation in 2022 for known diagnosis of right breast cancer. Patient has been doing very well except that she had a fall in November of 2024 and has been recovering from that. However patient is ambulating with without support. Patient had her port removed last week and has been recovering from the same and complains of some tenderness along the right chest wall area. H&P - Exam General: Very pleasant, fragile 84-year-old lady who is well oriented x3, cooperative with good comprehension skills. Patient has a good performance status for her age with ECOG 1 and pain that scale of 0. Patient has some difficulty in hearing because of her hearing aids not working but however is able to comprehend and communicate. Vital Signs: Vital Signs - 24 hr 02/28/25 10:56 Temperature 36.8 C Pulse Rate 90 Respiratory Rate 12 Blood Pressure 137/75 Pulse Oximetry 99 Exam Other physical findings: General physical examination reveals addressed area along the right infrascapular area from recent removal of her port. Bilateral breast examination reveals a very ptotic breast consistent with her age. Further evaluation reveals no signs of palpable masses with intact nipple and areolar complex. No axillary adenopathy. Cardiovascular respiratory examination is unremarkable Radiologic Data: Mammograms pending Assessment/Plan Assessment Assessment: A very pleasant lady with no signs of clinical recurrence Plan Plan: Patient was recommended to see me back in 1 year for further management
== END 2025-02-28 11:23 ==
LOC: AMCRADONC 11:00
PROVIDERS: Visit Provider Radiology Radiation Oncology
DX: C50.811 Malignant neoplasm of overlapping sites of right female breast (principal); Z08 Encounter for follow-up examination after completed treatment for malignant neoplasm; M54.50 Low back pain, unspecified; E87.6 Hypokalemia; R53.83 Other fatigue; F40.240 Claustrophobia; Z96.659 Presence of unspecified artificial knee joint; Z92.3 Personal history of irradiation; Z92.21 Personal history of antineoplastic chemotherapy; Z98.890 Other specified postprocedural states
CPT/HCPCS: 36415; 77280; 77290; 77295; 77300; 77334; 77336; 77412; 77417; 80047; 80053; 85025; 99212; G0463

== ENCOUNTER 2025-03-29 13:08 | Outpatient (CLI) | payer MEDICARE, SELFPAY ==
--- OUTSIDE RECORDS SUMMARY | 2025-03-29 13:19 | XMS_ITS | Encounter Summary ---
Author Organization [facility] Address [address] [place] [address] Phone Care Team Providers Care Natural Gas Engineer Name Role Phone VilmaVioleta parrish Julio CésarWagner DRISCOLL Primary Care Provider [phone] Gely Beaver DO Primary Care Provider Romi Sylvester DO Primary Care Provider [phone] Champ Eagle MD Unavailable [phone] Encounter Details Date Type Department Care Team (Late st Contact Info) Description 03/14/2016 Orders Only [facility] Rosina Garcia MD [address] [facility], [facility] [address] [place], [place] [id number] Social History Tobacco Use Types Packs/Day Years Used Date Smoking Tobacco: Never Comments Unknown Sex and Gender Information Value Date Recorded Sex Assigned at Not on file Legal Sex 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 Gender Identity Not on file Sexual Orientation Not on file documented as of this encounter Plan of Treatment Not on file documented as of this encounter Procedures Procedure Name Priority Date/Time Associated Diagnosis Comments PROCEDURE REPORT 03/14/2016 documented in this encounter Results * PROCEDURE REPORT (03/14/2016) us Rosina Garcia MD NURSING COMMUNICATION Final Res ult documented in this encounter Visit Diagnoses Not on filedocumented in this encounter Additional Health Concerns Infection Onset Date Last Indicated Resolved Time COVID: Suspected 08/20/2022 08/20/2022 08/20/2022 5:57 PM CDT documented as of this encounter Care Teams Natural Gas Engineer Relationship Specialty Start Date End Date Violeta Cardoza, HEAT TREATER APPRENTICE [address] [place] [address] PCP - General 03/10/17 03/14/18 Gely Beaver DO [address] [address] PCP - General 03/15/18 03/18/21 Romi Sylvester DO [address] [id number] PCP - General 03/19/21 Champ Eagle MD [address] [id number] Radiation Oncologist Radiation Oncology 08/20/22 documented as of this encounter
--- OUTSIDE RECORDS SUMMARY | 2025-03-29 13:19 | XMS_ITS | Data Portability ---
[facility] Address [address] [place] [address] Assessment No assessment recorded. Plan of Treatment Reminders Order Date Submit Date Provider Last Modified By Organization Details Last Modified Time Details Appointments None recorded. Lab None recorded. Referral None recorded. Procedures None recorded. Surgeries None recorded. Imaging MAMMO, diagnostic , digital, bilateral - wants [place] 2013 014 [facility]- Radiology, [address] [facility], [place], [address], 4 19:04:16 Medication Orders azithromyc in 250 mg tablet 2015 016 [facility] #[id number], [address], [place], [address], 7 10:08:32 Guaifenesi n AC 10 mg-100 mg/5 mL oral liquid 2015 016 [facility][id number], [address], [place], [address], 7 10:08:39 Robaxin 500 mg tablet 2014 015 [facility], [address] [facility] , [place], [address], 5 18:06:55 Tylenol-Co deine #3 300 mg-30 mg tablet 2014 015 [facility], [address] , [place], [address], 15:33:51 Patient TargetsNo targets recorded. Patient Instructions Encounter Date Encounter Id Patient Instructions Last Modified By Organization Details Last Modified Time 07/05/2015 [id number] apparent trauma to the left lower back region originating in the left buttocks area with soft tissue injury reflexes are markedly diminished on the left however she did have knee surgery and unknown if this is chronic pain does not appear to be radicular will treat with aleva and Robaxin heat pillows under her calves in supine position Tylenol 3 when necessary for pain and sleep if no relief will initiate physical therapy [email or web address] Not available 07/05/2015 16:50:18 02/29/2016 [id number] upper respirator y infection (cold): care instructions Not available 02/29/2016 16:29:40 Reason for Referral None Reported. Results Created Date Observation Date Name Description Value Unit Range Abnormal Flag Note LastModifiedBy Organization Detail LastModifiedTime 11/09/20 14 11/09/2014 MAMMO , diagn ostic , digit al, bilat eral No observ ation record ed[email or web address] [place], [address], 12/18/2014 12:27:43 11/10/20 14 11/09/2014 imagi ng/di agnos tic resul t No observ ation record ed. [email or web address] Not Available 11/24 12:27:43 11/15/20 14 11/14/2014 imagi ng/di agnos tic resul t No observ ation record ed. [email or web address] Not Available 11/24 12:27:43 12/29/19 15 11/14/2014 imagi ng/di agnos tic resul t No observ ation record ed. BARCODE Not Available 2014 13:46:50 07/09/20 15 07/08/2015 imagi ng/di agnos tic resul t No observ ation record ed. lremelius [facility] [address] [facility], [address], 07/11/2015 11:19:35 07/11/20 15 07/11/2015 MRI No observ ation record ed. lremelius [facility] (Mri, [facility] Only) [address], [place], [address], 07/12/2015 15:32:57 10/31/20 15 10/29/2015 imagi ng/di agnabbey tic resul t No observ ation record ed. [email or web address] Not Available 10/23 09:41:43 05/07/20 16 05/07/2016 xr ribs 2 views RT ALVA BRAXTON 2068 ADMIT/ SERVIC E DATE: ACCT: [id number] DISCHA RGE DATE: : 1940 SEX: F ORD SITE: [facility] NT IMAGIN G PT TYPE: REG CLI GRAHAM NOLASCO MD: Rosie DÍAZ STEPDOWN NURSE STUDY DATE REPORT # ORDER # EXT ORDER ID [id number] 7.001 PROC CODE: [id number] R PROCED URE DESCRI PTION: XR RIBS 2 VIEWS RT I MPRESS ION: NO ACUTE OR DISPLA OLE FRACTU RE IS SEEN EXAMIN ATION: X-RAY RIGHT RIBS 4 OR MORE VIEWS EXAM DATE/T SHAHEED: 016 11:15 AM CLINIC AL HISTOR Y: RIGHT RIB PAIN COMPAR NIKHIL: NONE. VIEWS: AP AND OBLIQU E RADIOG RAPH OF THE RIGHT RIBS WERE OBTAIN ED WITH TOTAL OF 4 VIEWS FINDIN GS: THERE IS NO ACUTE FRACTU RE. THERE IS NO OSTEOL YTIC OR OSTEOB LASTIC PROCES S. VISUAL IZED PORTIO NS OF THE RIGHT LUNG ARE GROSSL Y NORMAL . NO LARGE RIGHT PNEUMO THORAX IS SEEN. THERE IS AORTIC ATHERO SCLERO TIC CALCIF IED PLAQUE . THERE APPEAR S BE HYPERI NFLATI ON OF LUNGS. ELECTR ONICAL LY SIGNED BY: KB HENNING04/23 11:24 AM minh [facility] [address], [place], [address], 05/07/2016 13:23:36 05/09/20 16 05/07/2016 XR, ribs, unila teral No observ ation record ed. jose Not Available 04/23 12:50:45 04/29/20 17 04/29/2017 XR, shoul shashank No observ ation record ed. [email or web address] Not Available 2016 14:52:13 05/11/20 17 05/07/2017 MRI, shoul shashank, w/o contr ast No observ ation record ed. [address] [place], [address], 05/12/2017 10:05:17 Result Notes None recorded. Problems Name Problem SNOMED Code Status Onset Date Resolution Date Notes Provider Name and Address Organization Details Recorded Time Backache 485462912 Active Erik Navas MD Attn: Accountin g,[address] [facility], [place], [address], [facility] - SI 5 16:50:18 Lumbar radiculopathy 367623626 Active Violeta raphael [employer] Attn: Accountin g,[address] [facility], [place], [address], [facility] - SIF 6 15:43:15 Breast changes 923996199 Active Violeta raphael [employer] Attn: Accountin g,[address] [facility], [place], [address], [facility] - SIF 4 15:58:45 Bilateral cataracts 33030486 Active Violeta raphael [employer] Attn: Accountin g,[address] [facility], [place], [address], [facility] - SIF 6 15:43:15 Rib pain 411607257 Active Violeta Esparzam ijeoma, [employer] Attn: Ramon ford,[address] [facility], [place], [address], [facility] - [facility] 6 12:24:06 Osteoporosis 38911440 Active Fauzia Osei MA null, [place] - [place] 5 12:36:24 Problem Notes None recorded. Procedures Surgical History Date Name Laterality Status Provider Name and Address Organization Details Recorded Time Joint Replacement completed Shantel Osei MA [facility] 11/06/2014 09:36:19 Hysterectomy completed Fauzia Osei MA ID - [facility] 11/06/2014 09:36:19 Knee Surgery completed Fauzia Osei MA [facility] 11/06/2014 09:36:19 Dilation and Curettage completed Fauzia Osei MA [facility] 11/06/2014 09:36:19 Tonsillectomy completed Fauzia Osei MA [facility] 11/06/2014 09:36:19 Breast Surgery completed Fauzia Osei MA [facility] 11/06/2014 09:36:19 Imaging Results Imaging Date Name Status LastModified by Organiz ation Details LastModified Time 11/09/2014 MAMMO, diagnostic, digital, bilateral completed [facility] [place], [address], 12/18/2014 12:27:43 11/09/2014 imaging/diagnos tic result completed [facility] Information not available 12/18/2014 12:27:43 11/14/2014 imaging/diagnos tic result completed [email or web address] Information not available 12/18/2014 12:27:43 11/14/2014 imaging/diagnos tic result completed [facility] Information not available 12/29/2014 13:46:50 07/08/2015 imaging[facility]diagnos tic result [facility] [address] [facility], [place], [address], 07/11/2015 11:19:35 07/11/2015 MRI completed lremelius [facility] (Mri, Ct Only) [address] [facility], [place], [address], 07/12/2015 15:32:57 10/29/2015 imaging/diagnos tic result completed Information not available 11/01/2015 09:41:43 05/07/2016 xr ribs 2 views RT completed [email or web address] [facility] [address], [place], [address], 05/07/2016 13:23:36 05/07/2016 XR, ribs, unilateral completed [email or web address] Information not available 05/09/2016 12:50:45 04/29/2017 XR, shoulder completed [email or web address] Information not available 05/07/2017 14:52:13 05/07/2017 MRI, shoulder, w/o contrast completed [address] [place], [address], 05/12/2017 10:05:17 Procedure Notes None recorded. Medical Equipment None Reported. Allergies No known drug allergies Medications Name Sig Start Date Stop Date Status Note LastModified by Organization Details LastModified Time Prescriptio n - Renewal 07/13 completed Not Available Not Available Not Available azithromyci n 250 mg tablet TAKE 2 TABLETS (500 MG) BY ORAL ROUTE ONCE DAILY FOR 1 DAY THEN 1 TABLET (250 MG) BY ORAL ROUTE ONCE DAILY FOR 4 DAYS 02/26 completed Not Available Not Available Not Available ibuprofen 800 mg tablet 07/23 completed Not Available Not Available Not Available ofloxacin 0.3 % eye drops active Not Available Not Available Not Available hydrocodone 5 mg-acetamin ophen 325 mg tablet 1 tab PO TID PRN 07/23 completed Not Available Not Available Not Available Medrol (Anthony) 4 mg tablets in a dose pack Take as directed 07/12 completed Not Available Not Available Not Available tramadol 50 mg tablet Take 1 tablet EVERY 6 HOURS PRN pain 2014 active Not Available Not Available Not Avai lable oxycodone-a cetaminophe n 5 mg-325 mg tablet active Not Available Not Available No t Available prednisolon e acetate 1 % eye drops,suspe nsion active Not Available Not Available Not Available methocarbam ol 750 mg tablet 07/23 completed Not Available Not Available Not Available Robaxin 500 mg tablet Take 1 tablet 3 times a day by oral route for 10 days. 07/23 completed Not Available Not Available Not Available Cheratussin AC 10 mg-100 mg/5 mL oral liquid Take 5 mL every 6 hours by oral route. 02/26 completed Not Available Not Available Not Available Tylenol-Cod eine #3 300 mg-30 mg tablet active Not Available Not Available Not Available Vitals Date Recorded Respiratory rate Body weight Heart rate Body mass index (BMI) Body height Body temperature Systolic blood pressure Diastolic blood pressure Provider Name and Address Organization Details Last Updated DateTime 4 20 /min 60339.1 9284 g 88 /min 21.3 kg/m2 167.64 cm 97.8 [degF] 130 mm[Hg] 70 mm[Hg] Fauzia Osei MA [facility] 4 15:27:54 Date Recorded Respiratory rate Body weight Body height Heart rate Body mass index (BMI) Systolic blood pressure Diastolic blood pressure Provider Name and Address Organization Details Last Updated DateTime 5 16 /min 94324.9 03803 g 165.1 cm 80 /min 20.9 kg/m2 112 mm[Hg] 60 mm[Hg] Lauren Hou MA [facility] 5 14:27:50 Date Recorded Respiratory rate Body weight Body temperature Body height Body mass index (BMI) Heart rate Systolic blood pressure Diastolic blood pressure Provider Name and Address Organization Details Last Updated DateTime 6 16 /min 47187.5 63404 g 98.2 [degF] 165.1 cm 21.1 kg/m2 80 /min 130 mm[Hg] 58 mm[Hg] Lauren Hou MA [facility] 6 14:57:55 Date Recorded Body temperature Respiratory rate Body weight Body height Oxygen saturation Oxygen saturation in Arterial blood by Pulse oximetry Body mass index (BMI) Heart rate Systolic blood pressure Diastolic blood pressure Provider Name and Address Organization Details Last Updated DateTime 6 98.2 [degF] 18 /min 44640.4 1573 g 165.1 cm 95 % 95 % 21.5 kg/m2 89 /min 128 mm[Hg] 70 mm[Hg] Fauzia Osei MA [facility] 6 15:48:34 Date Recorded Respiratory rate Body weight Heart rate Body mass index (BMI) Body height Body temperature Systolic blood pressure Diastolic blood pressure Provider Name and Address Organization Details Last Updated DateTime 5 16 /min 88009.4 54620 g 80 /min 21.9 kg/m2 165.1 cm 97.9 [degF] 136 mm[Hg] 58 mm[Hg] Lauren Hou MA [facility] 5 11:51:57 Social History Question Answer Notes LastModified by Organizat ion Details LastModified Time Tobacco Smoking Status Never Smoker Fauzia Osei MA null, [facility] 11/02/2014 15:27:54 What Is Your Level Of Alcohol Consumption? None [email or web address] Information not available 02/21/2016 Are There Any Guns Present In Your Home? No Information not available 02/29/2016 Hard Of Hearing Or Deaf In One Or Both Ears? No [email or web address] Information not available 02/29/2016 Legally Blind In One Or Both Eyes? No [email or web address] Information not available 02/29/2016 Live Alone Or With Others? With Others Information not available 02/29/2016 Sex: Unknown Functional Status Question Answer Note LastModified by Organization D etails LastModified Time Are you able to care for yourself? Yes [email or web address] Information n ot available 02/29/2016 Mental Status None recorded. Family History Relationship Description Onset Age of this Age Resolved Age Notes LastModified by Organization Details LastModified Time Brother Essential hypertension [email or web address] Not available 15:48:34 Brother Kidney disease [email or web address] Not available 02/28 15:48:34 Medical History Condition Response Blood Clots Y Blood Clot Y Gynecological HistoryNo gynecological history recorded. Obstetrics History GPAL:G 0 P 0 0 0 0 Immunizations Vaccine Type Date Status Note Provider Nam e and Address Organization Details Recorded Time Tdap 12/18/2014 completed Not Available [employer] 12/10/2019 02:30:17 Past Encounters Encounter ID Performer Location Encounter Start Date Encounter Closed Date Diagnosis/Indication Diagnosis SNOMED-CT Code Diagnosis ICD10 Code Diagnosis Note [id number] Henna Fitzgerald MD [address] [address] 11/02/2014 15:11:10 11/02/2014 16:09:59 Breast changes [id number] Henna Fitzgerald MD [address] [address] 12/18/2014 11:32:04 12/18/2014 12:43:17 Adult health examination 921959392 reviewed lab encouraged to get eyes checked. Pt to make contact w/ GI for colonoscop y wants to wait for ins--will also see surg for f/u nipple changes [id number] Erik Navas MD [address] [address] 07/05/2015 13:57:39 07/06/2015 11:41:11 Backache 361806057 [id number] Henna Fitzgerald MD [address] [address] 02/21/2016 14:30:52 02/21/2016 16:30:30 Bilateral cataracts 72141604 H26.9 ok for surg Lumbar radiculopathy 128 986987 M54.16 reviewed MRI from 07/08--want s to try chiropract or 1st but realizes she may need to see neurosurg [id number] Immanuel iNeto MD [address] [address] 02/29/2016 15:20:19 02/29/2016 16:01:23 Acute upper respiratory infection 97995775 J06.9 Health Concerns Section Related Observation LastModified by Organization Detai ls LastModified Time None Recorded Concern Status LastModified by Organization Details LastModified Time None Recorded Advance Directives Directive None Recorded Payers Encounter Date Sequence Insurance Name Policy Number Policy [place] Covered Member ID Orosco Member ID Guarantor Name 11/02/2014 1 [place] Nayla Mejias [id number] Nayla Mejias 11/02/2014 2 [employer] - PLAN F (MEDICARE SUPPLEMENT) [employer] Nayla Mejias [id number] Nayla Mejias 12/18/2014 1 [place] Nayla A Schanter [id number] Nayla Schanter 12/18/2014 2 [employer] - DOS PRIOR TO 21 - [facility] BENEFITS PLAN Nayla Schanter [id number] Nayla Schanter 07/05/2015 1 [place] Nayla A Schanter [id number] Nayla Schanter 07/05/2015 2 [employer] - DOS PRIOR TO 21 - [facility] BENEFITS PLAN Nayla Schanter [id number] Nayla Schanter 02/21/2016 1 [place] Nayla A Schanter [id number] Nayla Schanter 02/21/2016 2 [employer] - DOS PRIOR TO 21 - [facility] BENEFITS PLAN Nayla Schanter [id number] Nayla Schanter 02/29/2016 1 [place] Nayla A Schanter [id number] Nayla Schanter 02/29/2016 2 [employer] - DOS PRIOR TO 21 - [facility] BENEFITS PLAN Nayla Schanter [id number] Nayla Schanter Notes Date Note Type Note Provider Name and Address Organization Details Recorded Time 07/05/2015 text/html HISTORY OF PRESE NT ILLNESS : THE PATIENT denies chest pain denies sob at rest sleeps on # 1-2 pillows denies pnd denies pedal edema denies dizziness denies syncope denies dyspnea on exertion ambulates ( distance) presently limited secondary to back injury denies palpitation denies fatigue patient states that she was moving a wagon 3 weeks ago when she developed the onset of lower back pain which she predominate localizes in the left buttocks. area She describes her discomfort as a pulling tightness sensation originating in the left buttocks area radiating to the anterior thigh and then stopping just below her left knee patient states she has difficulty walking no significant pain with sitting or lying flat she has tried anti-inflammatories intermittently Erik Navas MD Attn: Accounting,[address] [facility], [place], [address], [place] [facility] 07/05/2015 16:50:39 02/21/2016 text/html Eye PainReported bypatient.Location:r ight; cataract--will need another done Severity:no pain Violeta Cardoza, [employer] Attn: Accounting,[address] [facility], [place], [address], [facility] 02/21/2016 15:43:37 02/29/2016 text/html The pt comes in today for a sick visit c/o cough and congestion for the last one week. She took mucinex and zycam w/o much help. Mucinex actually made her worse. She is coughing up thick and dark phlegm. She gets out of breath after coughing fit. Immanuel Nieto MD Attn: Accounting,[address] , [place], [address], [facility] 02/29/2016 16:00:39 OBGyn Episode No OBEpisode recorded.
--- OUTSIDE RECORDS SUMMARY | 2025-03-29 13:19 | XMS_ITS | Clinical Summary ---
Author Organization [facility] 2 Address [address] [place] [address] Care Team Providers Care Custodial Laborer Name Role Phone Nga Romi Shields DO Primary Care Provider [phone] Champ Eagle MD Unavailable Allergies Active Allergy Reactions Criticality Noted Date Comments Ketorolac Tromethamine Stomach upset Low 07/27/2024 Medications acetaminophen 500 mg capsuleIndicatio ns:Pain Take 1 capsule (500 mg total) by mouth every 6 (six) hours as needed for pain 5 Active albuterol HFA (PROVENTIL HFA,VENTOLIN HFA,PROAIR HFA) 90 mcg/actuation inhaler Inhale 2 puffs every 6 (six) hours as needed for wheezing or shortness of breath 5 Active Additional Information Patient not taking.Reported on 03/06/2025 cholecalciferol (VITAMIN D-3) 1,000 unit capsule Take 1 capsule (1,000 Units total) by mouth daily 5 Active apixaban (ELIQUIS) 2.5 mg tabletIndication s:VTE Prophylaxis Following Ortho Surgery Take 1 tablet (2.5 mg total) by mouth 2 (two) times a day for 28 days 56 tablet 5 Active Additional Information Patient not taking.Reported on 03/06/2025 hydrocortisone 2.5 % cream Apply topically 2 (two) times a day 5 Active lidocaine (LIDODERM) 5 % Place 1 patch on the skin daily Remove & discard patch within 12 hours or as directed by . 5 Active methocarbamoL (ROBAXIN) 500 mg tablet Take 2 tablets (1,000 mg total) by mouth 3 (three) times a day 90 tablet 5 Active Additional Information Patient not taking.Reported on 03/06/2025 polyethylene glycol (MIRALAX) 17 gram packetIndication s:constipation Take 1 packet (17 g total) by mouth daily 5 Active Additional Information Patient not taking.Reported on 03/06/2025 senna-docusate (PERICOLACE) 8.6-50 mgIndications:co nstipation Take 1 tablet by mouth 2 (two) times a day 5 Active Additional Information Patient not taking.Reported on 03/06/2025 oxyCODONE (ROXICODONE) 5 mg immediate release tabletIndication s:Pain Take 1 tablet (5 mg total) by mouth every 4 (four) hours as needed for pain 5 Active Additional Information Patient not taking.Reported on 03/06/2025 cyanocobalamin/f olic acid (vitamin Q69-abvpp acid) 1,000-400 mcg lozenge 3 Active omega 7-teg-mms-fish oil (Fish OiL) 1,000 (120-180) mg capsule Take 1 capsule (1,000 mg total) by mouth daily 2 Active vit O-T-iksvng-zinc- lutein 226-90-0.8-5 mg capsule Take 1 capsule by mouth daily Active Active Problems Problem Noted Date Diagnosed Date Severe protein-calorie malnutrition 12/09/2024 Acute blood loss anemia 12/06/2024 Assessment & Plan (12/10/2024 8:55 AM TONSORIAL ARTIST): 12/06: POD1 6.7, given 2 unit pRBC, posttransfusion Hgb 7.3 12/07 : Hgb 6.7, given 1 unit pRBC, post transfusion Hgb 8.1 12/08: Hgb 7.4 12/09: Hgb 7.9 12/10: Hgb 7.7, labs d/junior Discharge planning issues 12/05/2024 Assessment & Plan (12/15/2024 1:44 PM TONSORIAL ARTIST): -CM initial assessment -12/07: PT/OT recommending IPR 12/09-present Patient is medically stable for discharge, SW/CM updated. Discharge pending insurance authorization - P2P denied 12/13-- CM to follow up regarding discharge planning - 12/14-: pending appeal. Appeal approved 12/15, able to discharge 12/08 Treatment plan completed Emphysema, unspecified 12/05/2024 Assessment & Plan (12/05/2024 1:03 PM TONSORIAL ARTIST): - Patient's home Albuterol PRN restarted Acute pain due to trauma 12/05/2024 Assessment & Plan (12/05/2024 1:04 PM TONSORIAL ARTIST): - Multimodal pain management post op Closed displaced intertrochanteric fracture of l eft femur 12/04/2024 Assessment & Plan (12/15/2024 1:44 PM TONSORIAL ARTIST): - Ortho c/s - 12/05: OR for IMN left femur - WBAT LLE - no hip precautions - PT/OT - Ok for DVT ppx -Eliquis 2.5 mg x 4 weeks at discharge - Closed with Dermabond per Op note - follow up with ortho 01/18 Dr. Sanchez -Bone health follow up at discharge Fall, initial encounter 12/04/2024 Acute diffuse otitis externa of both ears 2023 Sensorineural hearing loss (SNHL) of both ears 0 03/17/2024 Malignant neoplasm of right breast in female, estrogen receptor negative 08/20/2022 Cancer Staging:Clinical stage from 08/20/2022:Stage IB(cT1c, cN0, cM0, G3, ER-, CO-, HER2-) - Signed by Champ Eagle MD on 08/20/2022 Exudative age-related macular degeneration 08/03 Assessment & Plan (03/06/2025 10:06 AM CDT): Has not required an injection for 5 months. OCT appears stable. Considering stability we have agreed observation today. I have asked that she monitor vision using Amsler grid return to see us in roughly 2 months' time. Assessment & Plan (10/03/2024 10:19 AM TONSORIAL ARTIST): Has been on an every 4 month injection of Eylea to the left eye program. Everything appears very stable. Recommend repeat injection with Eylea in the left eye and reinject in 5 months. We will move to a slow treat and extend regimen. Assessment & Plan (06/13/2024 9:51 AM CDT): Slight IRF. Receiving injections OS q 4 months Recommend repeat YAN left eye today. Last interval was 4 months. Re-eval in 4 months. No signs of exudation in the right eye. R/B/A reviewed pt wishes to proceed. R/B/A reviewed with pt. Recommended AG monitoring at home. Assessment & Plan (02/15/2024 10:33 AM CDT): Slight IRF. Receiving injections OS q $ months Recommend repeat YAN left eye today. Last interval was 4 months. Re-eval in 4 months. No signs of exudation in the right eye. R/B/A reviewed as well as pain from last injection which resolved, pt wishes to proceed. R/B/A reviewed with pt. Recommended AG monitoring at home. Finished chemo finished radiation as well. Assessment & Plan (10/19/2023 9:25 AM TONSORIAL ARTIST): Slight IRF. Receiving injections OS q 3 months Recommend repeat YAN left eye today. Last interval was 4 months. She would like to spread out visits to q 4 months. Re-eval in 4 months. No signs of exudation in the right eye. R/B/A reviewed with pt. Recommended AG monitoring at home. Finished chemo last month, finished radiation as well. Assessment & Plan (06/22/2023 9:24 AM CDT): Slight IRF. Receiving injections OS q 3 months Recommend repeat YAN. Re-eval in 3 months. No signs of exudation in the right eye. R/B/A reviewed with pt. Recommended AG monitoring at home. Finished chemo last month, finished radiation as well. Assessment & Plan (03/02/2023 10:30 AM CDT): Slight IRF. Receiving injections OS q 3 months Recommend repeat YAN. Re-eval in 3 months. No signs of exudation in the right eye. R/B/A reviewed with pt. Recommended AG monitoring at home. Finished chemo last month, starting radiation in 1-2 weeks. Will get CBC today and if platelets ok, will schedule injection of Eylea next week. Assessment & Plan (12/01/2022 9:32 AM TONSORIAL ARTIST): Slight increase in IRF. Receiving injections OS q 3 months Recommend repeat YAN. Re-eval in 3 months. No signs of exudation in the right eye. R/B/A reviewed with pt. Recommended AG monitoring at home. Starting chemotherapy for breast cancer in the next week or so. Assessment & Plan (08/18/2022 9:23 AM CDT): Stable again. Receiving injections OS q 3 months, with mild/stable intra-retinal fluid today. Recommend repeat YAN. Re-eval in 3 months. No signs of exudation in the right eye. R/B/A reviewed with pt. Recommended AG monitoring at home. Assessment & Plan (05/19/2022 9:44 AM CDT): Receiving injections OS q 3 months, with mild/stable intra-retinal fluid today. Recommend repeat YAN. Re-eval in 3 months. No signs of exudation in the right eye. R/B/A reviewed with pt. Recommended AG monitoring at home. Assessment & Plan (02/17/2022 12:06 PM CDT): Slight delay in follow-up today (3.5 months) with mild intra-retinal fluid. Last YAN 11/04/21. Recommend repeat YAN. She has been getting YAN roughly every 3 months. No signs of exudation in the right eye. Assessment & Plan (11/04/2021 10:06 AM TONSORIAL ARTIST): Stable mild intraretinal fluid in the left eye today - possibly minimally worse compared to prior at 11 weeks today. Patient also notes mild metamorphopsia OS but only noted this today Consider YAN OS today, R/B/A reviewed, pt wishes to proceed. Assessment & Plan (08/19/2021 10:53 AM CDT): With stable mild intraretinal fluid in the left eye today. Currently on q3 month schedule. Recommend repeat injection with Eylea. Risks, benefits, alternatives reviewed with patient. Patient wished to proceed. Assessment & Plan (05/20/2021 10:12 AM CDT): With stable mild intraretinal fluid in the left eye today. Currently on q3 month schedule. Recommend repeat injection with Eylea. Risks, benefits, alternatives reviewed with patient. Patient wished to proceed. Assessment & Plan (02/18/2021 10:12 AM CDT): With stable mild intraretinal fluid in the left eye today. Currently on q3 month schedule. Recommend repeat injection with Eylea. Risks, benefits, alternatives reviewed with patient. Patient wished to proceed. Assessment & Plan (11/05/2020 9:38 AM TONSORIAL ARTIST): With stable mild intraretinal fluid in the left eye today. Currently on 3 month schedule. Recommend repeat injection with Eylea. Risks, benefits, alternatives reviewed with patient. Patient wished to proceed. Assessment & Plan (08/06/2020 9:37 AM CDT): With mild intraretinal fluid in the left eye today - stable. Recommend repeat injection with Eylea and follow-up in roughly 3 months time. Patient is now on a roughly 3 months schedule. Risks, benefits, alternatives reviewed with patient. Patient wished to proceed. Assessment & Plan (04/30/2020 9:38 AM CDT): With mild intraretinal fluid in the left eye today. Recommend repeat injection with Eylea and follow-up in roughly 3 months time. Patient is now on a roughly 3 months schedule. Risks, benefits, alternatives reviewed with patient. Patient wished to proceed. Assessment & Plan (01/16/2020 8:48 AM TONSORIAL ARTIST): Recurrent IRF OS today. Last YAN 10/17/19, 13 weeks ago. Consider repeat YAN OS today. Risks, benefits, alternatives were reviewed with patient. Patient wished to proceed. It appears the patient has been getting the injection roughly every 3 months or so. Will give her an injection today and re-evaluate her in 3 months time. Assessment & Plan (12/05/2019 9:10 AM TONSORIAL ARTIST): Without subretinal or intraretinal fluid today, we discussed the options of repeating injection versus observation, after discussion the patient wished for observation at this time. We'll re-evaluate roughly 6 weeks time. Assessment & Plan (10/17/2019 10:14 AM TONSORIAL ARTIST): Intraretinal fluid in the left eye has resolved following last injection 3 months ago and now with scant intraretinal fluid inferonasal to the fovea. Vision slightly worse today but improves to baseline with pinhole. Recommend Eylea today and re-evaluate roughly 6 weeks time. Patient knows to monitor vision using Amsler grid will call sooner should she have difficulties. Assessment & Plan (08/15/2019 10:10 AM CDT): Intraretinal fluid in the left eye has resolved following last injection. Recommend observation today, will re-evaluate roughly 6 weeks time. Patient knows to monitor vision using Amsler grid will call sooner should she have difficulties. Assessment & Plan (07/04/2019 10:20 AM CDT): Active wet macular degeneration left eye, on prn regimen. Recurrent fluid today, recommend repeat injection with Eylea left eye, alternatives were reviewed with the patient. Patient wishes to proceed. Assessment & Plan (05/30/2019 10:09 AM CDT): Intraretinal fluid in the left eye has resolved following last injection. Recommend observation today, will re-evaluate roughly 6 weeks time. Patient knows to monitor vision using Amsler grid will call sooner should she have difficulties. Assessment & Plan (04/04/2019 10:21 AM CDT): Active wet macular degeneration left eye, on prn regimen. Recurrent fluid today, recommend repeat injection with Eylea left eye, alternatives were reviewed with the patient. Patient wishes to proceed. Assessment & Plan (02/14/2019 10:31 AM CDT): Stable today, recommend observation. Monitor vision with Amsler grid at home, multivitamin therapy reviewed with patient. Assessment & Plan (01/03/2019 10:40 AM TONSORIAL ARTIST): Active wet macular degeneration left eye, recommend repeat injection with Eylea, , alternatives were reviewed with the patient. Patient wishes to proceed. Assessment & Plan (12/06/2018 8:50 AM TONSORIAL ARTIST): IRF improved, Pt wishes PRN tx, Will observe today. Assessment & Plan (08/30/2018 10:49 AM CDT): Stable today, recommend observation. No ME or SRF today. 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 Last injection was in February 2018. Assessment & Plan (05/17/2018 2:27 PM CDT): Stable today, recommend observation. Pseudophakia 02/17/2017 Cystoid macular edema 07/10/2016 Optic cupping 03/02/2016 Assessment & Plan (01/16/2020 9:11 AM TONSORIAL ARTIST): Follows with Dr. Mishra IOP okay. Assessment & Plan (04/04/2019 10:21 AM CDT): Patient sees Dr. Mishra, recommend follow-up with him for evaluation of the possibility of glaucoma. Vitreous floaters 03/02/2016 Assessment & Plan (08/30/2018 10:50 AM CDT): Signs and symptoms of retinal detachment and tears were discussed with the patient. Encounters Date Type Department Care Team Description 03/06/2025 9:20 AM CDT Office Visit [facility] Ophthalmology [address] [facility] [address] [place] [phone] Nedra Pugh MD Exudative age-related macular degeneration of left eye with active choroidal neovascularization (HCC) (Primary Dx) 03/01/2025 11:20 AM CDT Office Visit [facility] Orthopaedic Surgery [address] [place] [address] [place] [address] [place] [address] Nadine Sanchez MD Closed displaced intertrochanteric fracture of left femur, initial encounter ([facility]) (Primary Dx) 03/01/2025 11:00 AM CDT - 03/01/2025 11:59 PM CDT Hospital Encounter [facility] Rad[facility] [address] [place] [phone] Nadine Sanchez MD Closed displaced intertrochanteric fracture of left femur, initial encounter ([facility]) Discharge Disposition: Discharge to home or self care 02/24/2025 1:50 PM CDT - 02/24/2025 2:40 PM CDT Surgery [facility] OR [address] [place] [phone] Joel Faria MD REMOVAL PORT A CATH 02/24/2025 11:56 AM CDT - 02/24/2025 2:40 PM CDT Hospital Encounter [facility] OR [address] [place] [phone] Joel Faria MD Discharge Disposition: Discharge to home or self care 02/22/[address] [facility] Ophthal[facility] [address] [place] [phone] Nedra Pugh MD Pre Cert (2024 Eylea + Good days ) 02/13/[address] [facility] Orthopaedic Surgery [address] [place] [address] [place] [address] [place] [address] Zeenat Basurto MS 01/18/2025 11:40 AM TONSORIAL ARTIST Office Visit [facility] Orthopaedic Surgery [address] [facility] Medicine 6th [place] [address] [place] [address] Nadine Sanchez MD Closed displaced intertrochanteric fracture of left femur, initial encounter ([facility]) (Primary Dx); Follow-up exam 01/18/2025 11:15 AM TONSORIAL ARTIST - 01/18/2025 11:59 PM TONSORIAL ARTIST Hospital Encounter [facility] Radiology [facility] ([facility]) [address] [place] [address] Nadine Sanchez MD Closed displaced intertrochanteric fracture of left femur, initial encounter ([facility]) Discharge Disposition: Discharge to home or self care from Last 3 Months Immunizations Immunization Administration Dates Next Due Pfizer SARS-CoV-2 Monovalent Vaccination (12+ Yrs) PURPLE 01/25/2021,01/01/2021 Tdap 08/13/2022 Surgical History Surgery Date Site/Laterality Comments CATARACT EXTRACTION Bilateral INTRAOCULAR LENS INSERTION HYSTERECTOMY BREAST EXCISIONAL BIOPSY 11/23/2004 - 11/22/2005 BENIGN BREAST BIOPSY 07/25/2022 Right REPLACEMENT TOTAL KNEE BILATERAL Bilateral TRANSFER ADJACENT TISSUE GENITALIA from traumatic injury climbing over fence FRACTURE SURGERY Right hand--repair from traumatic injury BREAST LUMPECTOMY FEMUR FRACTURE SURGERY 12/08/[address] in [address] Medical History Medical History Date Comments Combined forms of age-relate d cataract of both eyes Combined form of age-related cataract, both eyes - (Added by TW Conv) Presence of intraocular lens Pse udophakia of right eye - (Added by TW Conv) Macular degeneration left eye PONV (postoperative nausea a nd vomiting) Vertigo Hiatal hernia Motion sickness Breast cancer (HCC) 10/01/2022 right breast History of radiation therapy History of chemotherapy Family History Medical History Relation Name Comments Cancer Brother Macular degeneration Brother Family history of macular degeneration - (Added by TW Conv) Cancer Cousin Cancer Father Glaucoma Neg Hx Relation Name Status Comments Brother Cousin Father Mother Social History Tobacco Use Types Packs/Day Years Used Date Smoking Tobacco: Never Smokeless Tobacco: Never Tobacco Cessation:Counseling Given: Not Answered AUDIT-C Answer Date Recorded Q1: How often do you have a drink containing alcohol? Never 12/05/2024 Q2: How many drinks containi ng alcohol do you have on a typical day when you are drinking? Patient does not drink Q3: How often do you have si x or more drinks on one occasion? Never 12/05/2024 Personal Safety Answer Date Recorded Have you ever been in or are you currently in a harmful physical or emotional relationship or is someone making you feel afraid or unsafe? Denies 02/24/2025 Comments No Sex and Gender Information Value Date Recorded Sex Assigned at Not on file Legal Sex Female 4:18 AM TONSORIAL ARTIST Gender Identity Not on file Sexual Orientation Not on file Obstetrics History Para Term AB IAB SAB Ectopic Multiple Livin g Live Births 3 Date Outcome GA Total Labor Labor/2nd/3rd Weight Sex Type Anes PTL Jen A1 A5 Name Clin Last Filed Vital Signs Vital Sign Reading Time Taken Comments Blood Pressure 139/65 02/24/2025 2:25 PM CDT Pulse 88 02/24/2025 2:25 PM CDT Temperature 37.2 C (98.9 F) 02/24/2025 2:10 PM CDT Respiratory Rate 17 02/24/2025 2:25 PM CDT Oxygen Saturation 98% 02/24/2025 2:25 PM CDT Inhaled Oxygen Concentration - - Weight 48.5 kg (107 lb) 02/24/2025 12:34 PM CDT Height 162.6 cm (5' 4 ) 02/24/2025 12:34 PM CDT Body Mass Index 18.37 02/24/2025 12:34 PM CDT Plan of Treatment Health Maintenance Due Date Last Done Comments Depression Screening 1940 Hepatitis B Screening 1958 Zoster Vaccine (1 of 2) 1989 1940 Well Visit 65+ 2004 Osteoporosis Screening-Bone Density Scan 05/28/2023 05/28/2021, 05/28/2021, 03/30/2018 Covid-19 Vaccine (2023-2 5 season) 2024 01/25/2021, 01/01/2021 Influenza Vaccine (Season Ended) 2025 Fall Risk Assessment 02/24/2026 02/24/2025 DTaP/Tdap/Td Vaccine (3 - Td or Tdap) 08/13/2032 08/13/2022, 12/18/2014 Pneumococcal vaccine 65+ Completed 018, 12/15/2017, 1940, Additional history exists Medical Devices Implanted Type Area Industrial Tech Instructor Device Identifier Shelf Expiration Date Model / Serial / Lot [employer]/Orth o Trigen Intertan 11.5mm 40cm Antegrade Intertrochanter Left 125d [id number] - [id number] Implanted:Qty: 1 on 12/05/2024 by Nadine Sanchez MD at [facility] Left: Femur [employer]/O rtho [id number] 01/22/2030 [id number] / / [id number] [employer]/Orth o Intertan 4.5mm 95mm 90mm Lag Compression Integrated Interlocking [id number] - [id number] Implanted:Qty: 1 on 12/05/2024 by Nadine Sanchez MD at [facility] Left: Femur [employer]/O rtho [id number] 07/25/2034 [id number] / / [id number] [employer]/Orth o 5mm 40mm Low Profile Internal Hex Femur Screw Bone Trigen [id number] - [id number] Implanted:Qty: 1 on 12/05/2024 by Nadine Sanchez MD at [facility] Left: Femur [employer]/O rtho [id number] / / [employer]/Orth o 5mm 47.5mm Low Profile Internal Hex Femur Screw Bone Trigen [id number] - [id number] Implanted:Qty: 1 on 12/05/2024 by Nadine Sanchez MD at [facility] Left: Femur [employer]/O rtho [id number] / / Explanted Type Area Industrial Tech Instructor Device Identifier Shelf Expiration Date Model / Serial / Lot [employer] [place] Mammalok Gold 20ga 3cm Repositionable Flexible Stabilizer [id number] - [id number] - [id number] Explanted:Qty: 1 on 10/01/2022 at [facility] Right: Breast [employer] [id number] 05/15/2027 [id number] / [id number] / [id number] Procedures Procedure Name Priority Date/Time Associated Diagnosis Comments OCT, RETINA - OU - BOTH EYES Routine 03/06/2025 10:06 AM CDT Exudative age-related macular degeneration of left eye with active choroidal neovascularization (HCC) XR FEMUR LEFT 2 OR MORE VIEWS Routine 03/01/2025 11:26 AM CDT Closed displaced intertrochanteric fracture of left femur, initial encounter (HCC) REMOVAL PORT A CATH 02/24/2025 1:20 PM CDT NON USE DEVICE XR FEMUR LEFT 2 OR MORE VIEWS Routine 01/18/2025 11:29 AM TONSORIAL ARTIST Closed displaced intertrochanteric fracture of left femur, initial encounter (HCC) DEXA AXIAL SKELETON BONE DENSITY 1 OR MORE SITES Schedule Routine, Read Routine (OP Routine) 05/28/2021 3:08 PM CDT Postmenopausal from Last 3 Months or Most Recently Relevant to Health Maintenance Results * OCT, Retina - OU - Both Eyes (03/06/2025 10:06 AM CDT) Anatomical Region Laterality Modality Head Optical Coherenc e Tomography Narrative 03/06/2025 10:06 AM CDT Right Eye Quality was good. Scan locations included subfoveal. Progression has been stable. Left Eye Quality was good. Scan locations included subfoveal. Progression has been stable. Findings include intraretinal fluid. Notes OD: no fluid OS: No fluid us Nedra Pugh MD OPHTH TOMOGRAPHY Final Res ult * XR Femur Left 2 or More Views (03/01/2025 11:26 AM CDT) Anatomical Region Laterality Modality Lower Extremities, Thigh, Femur Left Computed Radiography 03/01/2025 11:4 4 AM CDT Impressions 03/01/2025 11:49 AM CDT Interval healing of left intertrochanteric fracture is reduced and internally fixated and unchanged alignment. Dictated by: Cristopher Narayan MD The radiology attending physician has personally reviewed this study, and had reviewed and/or edited this written report and agrees with it. Electronically signed by: Pj Thomas MD Narrative 03/01/2025 11:49 AM CDT EXAMINATION: XR FEMUR LEFT 2 OR MORE VIEWS HISTORY: Follow-up left hip fracture status post fixation. COMPARISON: Left femur radiographs 01/18/2025 FINDINGS: 5 radiographs left femur were obtained. Interval healing of left intertrochanteric fracture that is reduced and internally fixated with intramedullary nail and intertrochanteric locking screws. No periprosthetic loosening or fracture. Unchanged appearance of left knee total arthroplasty in unchanged, near anatomic alignment. No periprosthetic lucency or fracture. Procedure Note Pj Thomas MD - 03/01/2025 EXAMINATION: XR FEMUR LEFT 2 OR MORE VIEWS HISTORY: Follow-up left hip fracture status post fixation. COMPARISON: Left femur radiographs 01/18/2025 FINDINGS: 5 radiographs left femur were obtained. Interval healing of left intertrochanteric fracture that is reduced and internally fixated with intramedullary nail and intertrochanteric locking screws. No periprosthetic loosening or fracture. Unchanged appearance of left knee total arthroplasty in unchanged, near anatomic alignment. No periprosthetic lucency or fracture. IMPRESSION: Interval healing of left intertrochanteric fracture is reduced and internally fixated and unchanged alignment. Dictated by: Cristopher Narayan MD The radiology attending physician has personally reviewed this study, and had reviewed and/or edited this written report and agrees with it. Electronically signed by: Pj Thomas MD Nadine Sanchez MD [facility] [place]ED[place] Final Re sult * XR Femur Left 2 or More Views (01/18/2025 11:29 AM TONSORIAL ARTIST) Anatomical Region Laterality Modality Lower Extremities, Thigh, Femur Left Computed Radiography 01/18/2025 12:0 9 PM TONSORIAL ARTIST Impressions 01/18/2025 12:14 PM TONSORIAL ARTIST Healing, nailed left femur intertrochanteric fracture. Dictated by: Jimbo Downs M.D. The radiology attending physician has personally reviewed this study, and had reviewed and/or edited this written report and agrees with it. Electronically signed by: Alfa Norman M.D. Narrative 01/18/2025 12:14 PM TONSORIAL ARTIST EXAM: XR FEMUR LEFT 2 OR MORE VIEWS HISTORY: Femoral fracture FINDINGS: 5 radiographs of the left femur are compared with radiographs dated 12/04/2024. There is interval long femoral nail fixation of a left intertrochanteric femur healing fracture in reduced, in near anatomic alignment. There is a lesser trochanter fracture fragment which is minimally displaced. Left hip joint spaces normal. There is a partially evaluated left 3 component knee arthroplasty which appears in unchanged alignment. Diffuse osseous demineralization. Vascular calcifications. Procedure Note Alfa Norman MD - 01/18/2025 EXAM: XR FEMUR LEFT 2 OR MORE VIEWS HISTORY: Femoral fracture FINDINGS: 5 radiographs of the left femur are compared with radiographs dated 12/04/2024. There is interval long femoral nail fixation of a left intertrochanteric femur healing fracture in reduced, in near anatomic alignment. There is a lesser trochanter fracture fragment which is minimally displaced. Left hip joint spaces normal. There is a partially evaluated left 3 component knee arthroplasty which appears in unchanged alignment. Diffuse osseous demineralization. Vascular calcifications. IMPRESSION: Healing, nailed left femur intertrochanteric fracture. Dictated by: Jimbo Downs M.D. The radiology attending physician has personally reviewed this study, and had reviewed and/or edited this written report and agrees with it. Electronically signed by: Alfa Norman M.D. Nadine Sanchez MD IMG XR PROCEDURES Final Re sult * Dexa Axial Skeleton Bone Density 1 or 2 Site (05/28/2021 3:08 PM CDT) Anatomical Region Laterality Modality Body N/A Mammography 05/28/2021 4:40 PM CDT Narrative 05/28/2021 4:41 PM CDT EXAM DESCRIPTION: DEXA AXIAL SKELETON BONE DENSITY 1 OR MORE SITES REASON FOR STUDY: 80 y/o year old F with given history of screening. 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 FINDINGS: AP LUMBAR SPINE L1-L4: Total BMD is 0.987 g/cm2 T-score is -0.5 LEFT HIP: Total BMD is 0.541 g/cm2 T-score is -3.3 Femoral neck BMD is 0.459 g/cm2 T-score is -3.5 IMPRESSION: Osteoporosis. FRAX not reported due to T-scores being at or below -2.5 REFERENCE: Bone mineral density: Normal (T-score above or = -1.0) Low bone mass (T-score between -1.0 and -2.5) replaces the previously used term osteopenia Osteoporosis (T-score = or below -2.5) Medical evaluation for secondary causes of low bone mineral density may be appropriate. FRAX is a World Health Organization validated fracture risk assessment tool that calculates a person's 10 year probability of a major osteoporosis related fracture and hip fracture. According to the National Osteoporosis Foundation guidelines, postmenopausal women and men age 50 or older with low bone mass and a 10 year probability of a major osteoporosis related fracture = or greater than 20% or a 10 year probability of a hip fracture = or greater than 3% should be considered for treatment. For further information, including treatment recommendations, please refer to the 2013 ISCD Official Positions (http://www.iscd.org) and the NOF's Clinician's Guide to Prevention and Treatment of Osteoporosis (http://www.nof.org/professionals/clinical-guidelines) THIS IS AN ELECTRONICALLY VERIFIED FINAL REPORT 05/28/2021 4:41 PM - Electronically signed by Dalila John M.D. TB: TB Report ID: [id number] Reading Location: [facility] Procedure Note Dalila John MD - 05/28/2021 EXAM DESCRIPTION: DEXA AXIAL SKELETON BONE DENSITY 1 OR MORE SITES REASON FOR STUDY: 80 y/o year old F with given history ofscreening. 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 FINDINGS: AP LUMBAR SPINE L1-L4: Total BMD is 0.987 g/cm2 T-score is -0.5 LEFT HIP: Total BMD is 0.541 g/cm2 T-score is -3.3 Femoral neck BMD is 0.459 g/cm2 T-score is -3.5 IMPRESSION: Osteoporosis. FRAX not reported due to T-scores being at or below -2.5 REFERENCE: Bone mineral density: Normal (T-score above or = -1.0) Low bone mass (T-score between -1.0 and -2.5) replaces thepreviously used term osteopenia Osteoporosis (T-score = or below -2.5) Medical evaluation for secondary causes of low bone mineral density may be appropriate. FRAX is a World Health Organization validated fracture risk assessmenttool that calculates a person's 10 year probability of a major osteoporosisrelated fracture and hip fracture. According to the National OsteoporosisFoundation guidelines, postmenopausal women and men age 50 or older with low bonemass and a 10 year probability of a major osteoporosis related fracture = or greater than 20% or a 10 year probability of a hip fracture = or greaterthan 3% should be considered for treatment. For further information, including treatment recommendations, please referto the 2013 ISCD Official Positions (http://www.iscd.org) and the NOF's Clinician's Guide to Prevention and Treatment of Osteoporosis (http://www.nof.org/professionals/clinical-guidelines) THIS IS AN ELECTRONICALLY VERIFIED FINAL REPORT 05/28/2021 4:41 PM - Electronically signed by Dalila John M.D. 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 ADVANCE DIRECTIVE 12/16/2024 POWER OF A TTORNEY-MEDICAL ADVANCE DIRECTIVE 02/19/2017 12:00 AM CHARLES Atwood OF [employer] FINANCIAL/MEDICAL * Full Code (Latest Code Status on File) Date Activated Date Inactivated Comments 12/05/2024 8:46 PM 12/16/2024 2:00 AM * Full Code Date Activated Date Inactivated Comments 12/05/2024 8:46 PM 12/05/2024 8:46 PM * Full Code Date Activated Date Inactivated Comments 10/01/2022 3:57 PM 10/02/2022 12:33 AM Care Teams Custodial Laborer Relationship Specialty Start Date End Date Romi Sylvester DO PCP - General 03/19/21 Champ Eagle MD Radiation Oncologist Radiation Oncology 08/20/22
--- OUTSIDE RECORDS SUMMARY | 2025-03-29 13:19 | XMS_ITS | Clinical Summary ---
Author Organization [facility] Address [address] [place] [address] Care Team Providers Care Medical Laboratory Technicians Name Role Phone Matthew Lagunas MD Unavailable [phone] Erika Castro MD Primary Care Provider [phone] Source Comments [facility],non-owned Affiliates and Associated Physician Practices is amultiple site organization consisting of ambulatory clinics and hospital sitesin [place], [place], [place] and [place]. This disclosure is being madepursuant to the Care Everywhere program and may not contain all information available regarding this patient. Last updated 18.[facility] Allergies No known active allergies Medications * Be aware that medications may not be up to date on this document. Alwaysverify current medications with the patient. 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 Gender Identity Not on file Sexual Orientation Not on file Last Filed Vital Signs Vital Sign Reading Time Taken Comments Blood Pressure 128/66 05/25/2012 12:53 PM CDT Pulse 55 05/25/2012 12:53 PM CDT Temperature 36.8 C (98.3 F) 05/25/2012 12:53 PM CDT Respiratory Rate 18 05/25/2012 12:53 PM CDT Oxygen Saturation 97% 05/25/2012 12:53 PM CDT Inhaled Oxygen Concentration - - Weight 54 kg (119 lb) 05/24/2012 11:05 AM CDT Height 162.6 cm (5' 4 ) 05/24/2012 11:05 AM CDT Body Mass Index 20.43 05/24/2012 11:05 AM CDT Plan of Treatment Health Maintenance Due Date Last Done Comments BONE DENSITY TESTING 1940 DTAP/TDAP/TD VACCINES (1 - Tdap) 1958 PNEUMOCOCCAL VACCINE 50+ (1 of 1 - PCV) 1989 ZOSTER VACCINE (1 of 2) 1989 Respiratory Syncytial Virus (RSV) Vaccine Pt: or over 60 yrs (1 - 1-dose 75+ series) 2014 COVID-19 VACCINE ( - 2023-2 5 season) 2024 DEPRESSION SCREENING 11/23/2024 INFLUENZA VACCINE (Season Ended) 2025 HEPATITIS B VACCINE Aged Out No longe r eligible based on patient's age to complete this topic HIB VACCINE Aged Out No longer eligi ble based on patient's age to complete this topic HPV VACCINE Aged Out No longer eligi ble based on patient's age to complete this topic MENINGOCOCCAL (Group B) VACC INE SHARED DECISION-MAKING Aged Out No longer eligibl e based on patient's age to complete this topic MENINGOCOCCAL GROUPS A/C/Y/W VACCINE Aged Out No longer eligible b ased on patient's age to complete this topic Insurance [employer] MEDICARE Advance Directives Documents on File Type Date Recorded Patient Director Ship Expl anation Adv Directive/Living Will/POA 02/28/2012 9:44 AM Adv Directive/Living Will/POA 07/19/2010 9:26 AM * FULL RESUSCITATION (Latest Code Status on File) Date Activated Date Inactivated Comments 05/24/2012 4:50 PM 05/26/2012 5:16 AM * FULL RESUSCITATION Date Activated Date Inactivated Comments 02/23/2012 2:29 PM 02/27/2012 11:43 PM * Full Code Date Activated Date Inactivated Comments 07/15/2010 12:03 PM 07/19/2010 12:44 AM Care Teams Medical Laboratory Technicians Relationship Specialty Start Date End Date Erika Castro MD [address] [facility] [place] [address] PCP - General Family Medicine 03/16/12 Matthew Lagunas MD Orthopedic Surgery 01/26/12
--- OUTSIDE RECORDS SUMMARY | 2025-03-29 13:19 | XMS_ITS | Referral Summary ---
Author Organization [facility] Address [address] [place] [address] Care Team Providers Care Geophysicist Name Role Phone NgaRomi gonzalez Alyson SHAY Primary Care Provider [phone] Champ Eagle MD Unavailable [phone] Encounters Date Type Department Care Team Description 03/06/2025 9:20 AM CDT Office Visit [facility] Ophthalmology [address] [facility] 6th [place] [id number] Nedra Pugh MD Exudative age-related macular degeneration of left eye with active choroidal neovascularization (HCC) (Primary Dx) 03/01/2025 11:00 AM CDT - 03/01/2025 11:59 PM CDT Hospital Encounter [facility] [address] [place] [address] Nadine Sanchez MD Closed displaced intertrochanteric fracture of left femur, initial encounter (HCC) Discharge Disposition: Discharge to home or self care 03/01/2025 11:20 AM CDT Office Visit [facility] Orthopaedic Surgery [address] [facility] [facility] 6th [place] [address] [place] [phone] Nadine Sanchez MD Closed displaced intertrochanteric fracture of left femur, initial encounter (HCC) (Primary Dx) 02/24/2025 1:50 PM CDT - 02/24/2025 2:40 PM CDT Surgery [facility] [place] [address] [place] [address] Joel Faria MD REMOVAL PORT A CATH 02/24/2025 11:56 AM CDT - 02/24/2025 2:40 PM CDT Hospital Encounter [facility] [place] [place] [address] [place] [address] Joel Faria MD Discharge Disposition: Discharge to home or self care 02/22/2025 Telephone [facility] Ophthalmology [facility] 6th [place] [address] Nedra Pugh MD Pre Cert (2024 + ) 02/13/2025 Telephone [facility] Orthopaedic Surgery [address] [place] [address] Advanced Medicine 6th [place] [address] [place] [address] Zeenat Basurto MS 01/18/2025 11:15 AM RESEARCH LABORATORY SPECIALIST - 01/18/2025 11:59 PM RESEARCH LABORATORY SPECIALIST Hospital Encounter [facility] ([facility]) [address] [place] [address] Nadine Sanchez MD Closed displaced intertrochanteric fracture of left femur, initial encounter ([facility]) Discharge Disposition: Discharge to home or self care 01/18/2025 11:40 AM RESEARCH LABORATORY SPECIALIST Office Visit [facility] Orthopaedic Surgery [address] [place] [address] Advanced Medicine 6th [place] [address] [place] [address] Nadine Sanchez MD Closed displaced intertrochanteric fracture of left femur, initial encounter ([facility]) (Primary Dx); Follow-up exam from Last 3 Months Allergies Active Allergy Reactions Criticality Noted Date Comments Ketorolac Tromethamine Stomach upset Low 07/27/2024 Medications acetaminophen 500 mg capsuleIndicatio ns:Pain Take 1 capsule (500 mg total) by mouth every 6 (six) hours as needed for pain Active albuterol HFA (PROVENTIL HFA,VENTOLIN HFA,PROAIR HFA) [...] within 12 hours or as directed by MD. 5 Active methocarbamoL (ROBAXIN) 500 mg tablet [...] taking.Reported on 03/06/2025 cyanocobalamin/f olic acid (vitamin K53-rdnam acid) 1,000-400 mcg lozenge 3 Active omega 0-psq-wmd-fish oil (Fish OiL) 1,000 (120-180) mg capsule Take 1 capsule (1,000 mg total) by mouth daily 2 Active vit B-S-sayucw-zinc- lutein 226-90-0.8-5 mg capsule Take 1 capsule by mouth daily Active Active Problems Problem Noted Date Diagnosed Date Severe protein-calorie malnutrition 12/09/2024 Acute blood loss anemia 12/06/2024 Assessment & Plan (12/10/2024 8:55 AM RESEARCH LABORATORY SPECIALIST): 12/06: POD1 6.7, given 2 unit pRBC, posttransfusion Hgb 7.3 12/07 : Hgb 6.7, given 1 unit pRBC, post transfusion Hgb 8.1 12/08: Hgb 7.4 12/09: Hgb 7.9 12/10: Hgb 7.7, labs d/junior Discharge planning issues 12/05/2024 Assessment & Plan (12/15/2024 1:44 PM RESEARCH LABORATORY SPECIALIST): -CM initial assessment -12/07: PT/OT recommending IPR 12/09-present Patient is medically stable for discharge, SW/CM updated. Discharge pending insurance authorization - P2P denied 12/13-- CM to follow up regarding discharge planning - 12/14-: pending appeal. Appeal approved 12/15, able to discharge 12/08 Treatment plan completed Emphysema, unspecified 12/05/2024 Assessment & Plan (12/05/2024 1:03 PM RESEARCH LABORATORY SPECIALIST): - Patient's home Albuterol PRN restarted Acute pain due to trauma 12/05/2024 Assessment & Plan (12/05/2024 1:04 PM RESEARCH LABORATORY SPECIALIST): - Multimodal pain management post op Closed displaced intertrochanteric fracture of l eft femur 12/04/2024 Assessment & Plan (12/15/2024 1:44 PM RESEARCH LABORATORY SPECIALIST): - Ortho c/s - 12/05: OR for [...] from 08/20/2022:Stage IB(cT1c, cN0, cM0, G3, ER-, KS-, HER2-) - Signed by Champ Eagle MD [...] time. Assessment & Plan (10/03/2024 10:19 AM RESEARCH LABORATORY SPECIALIST): Has been on an every 4 month [...] well. Assessment & Plan (10/19/2023 9:25 AM RESEARCH LABORATORY SPECIALIST): Slight IRF. Receiving injections OS q 3 [...] week. Assessment & Plan (12/01/2022 9:32 AM RESEARCH LABORATORY SPECIALIST): Slight increase in IRF. Receiving injections OS [...] eye. Assessment & Plan (11/04/2021 10:06 AM RESEARCH LABORATORY SPECIALIST): Stable mild intraretinal fluid in the left [...] proceed. Assessment & Plan (11/05/2020 9:38 AM RESEARCH LABORATORY SPECIALIST): With stable mild intraretinal fluid in the [...] proceed. Assessment & Plan (01/16/2020 8:48 AM RESEARCH LABORATORY SPECIALIST): Recurrent IRF OS today. Last YAN 10/17/19, 13 weeks ago. Consider repeat YAN OS today. Risks, benefits, alternatives were reviewed with patient. Patient wished to proceed. It appears the patient has been getting the injection roughly every 3 months or so. Will give her an injection today and re-evaluate her in 3 months time. Assessment & Plan (12/05/2019 9:10 AM RESEARCH LABORATORY SPECIALIST): Without subretinal or intraretinal fluid today, we discussed the options of repeating injection versus observation, after discussion the patient wished for observation at this time. We'll re-evaluate roughly 6 weeks time. Assessment & Plan (10/17/2019 10:14 AM RESEARCH LABORATORY SPECIALIST): Intraretinal fluid in the left eye has [...] patient. Assessment & Plan (01/03/2019 10:40 AM RESEARCH LABORATORY SPECIALIST): Active wet macular degeneration left eye, recommend repeat injection with Eylea, , alternatives were reviewed with the patient. Patient wishes to proceed. Assessment & Plan (12/06/2018 8:50 AM RESEARCH LABORATORY SPECIALIST): IRF improved, Pt wishes PRN tx, Will [...] 03/02/2016 Assessment & Plan (01/16/2020 9:11 AM RESEARCH LABORATORY SPECIALIST): Follows with Dr. Tad dunn. Assessment & Plan (04/04/2019 10:21 AM CDT): Patient sees Dr. Mishra, recommend follow-up with him for evaluation of the possibility of glaucoma. Vitreous floaters 03/02/2016 Assessment & Plan (08/30/2018 10:50 AM CDT): Signs and symptoms of retinal detachment and tears were discussed with the patient. Immunizations Immunization Administration Dates Next Due Pfizer SARS-CoV-2 Monovalent Vaccination (12+ Yrs) PURPLE 01/25/2021,01/01/2021 Tdap 08/13/2022 Social History Tobacco Use Types Packs/Day Years [...] on file Legal Sex Female 4:18 AM RESEARCH LABORATORY SPECIALIST Gender Identity Not on file Sexual [...] 02/24/2025 12:34 PM CDT Plan of Treatment Not on file Medical Devices Implanted Type Area Film Rental Clerk Device Identifier Shelf Expiration Date Model / Serial / Lot [employer]/Orth o Trigen Intertan 11.5mm 40cm Antegrade Intertrochanter Left 125d [id number] - [id number] Implanted:Qty: 1 on 12/05/2024 by Nadine Sanchez MD at [facility] Left: Femur [employer]/O rtho [id number] 01/22/2030 [id number] / / [id number] [employer]/Orth o Intertan 4.5mm 95mm 90mm Lag Compression Integrated Interlocking [id number] - [id number] Implanted:Qty: 1 on 12/05/2024 by Nadine Sanchez MD at [facility] Left: Femur [employer]/O rtho [id number] 07/25/2034 [id number] / / [id number] [employer]/Orth o 5mm 40mm Low Profile Internal Hex Femur Screw Bone Trigen [id number] - [id number] Implanted:Qty: 1 on 12/05/2024 by Nadine Sanchez MD at [facility] Left: Femur [employer]/O rtho [id number] / / [employer]/Orth o 5mm 47.5mm Low Profile Internal Hex Femur Screw Bone Trigen [id number] - [id number] Implanted:Qty: 1 on 12/05/2024 by Nadine Sanchez MD at [facility] Left: Femur [employer]/O rtho [id number] / / Explanted Type Area Film Rental Clerk Device Identifier Shelf Expiration Date Model / Serial / Lot Buttonhole [employer] [place] Mammalok Gold 20ga 3cm Repositionable Flexible Stabilizer [id number] - [id number] - [id number] Explanted:Qty: 1 on 10/01/2022 at [facility] Right: Breast [employer]hole [employer] [id number] 05/15/2027 [id number] / [id number] / [id number] Procedures Procedure Name Priority Date/Time Associated Diagnosis [...] OR MORE VIEWS Routine 01/18/2025 11:29 AM RESEARCH LABORATORY SPECIALIST Closed displaced intertrochanteric fracture of left femur, [...] by: Pj Thomas MD Nadine Sanchez MD IMG XR PROCEDURES Final Re sult * XR Femur Left 2 or More Views (01/18/2025 11:29 AM RESEARCH LABORATORY SPECIALIST) Anatomical Region Laterality Modality Lower Extremities, Thigh, Femur Left Computed Radiography 01/18/2025 12:0 9 PM RESEARCH LABORATORY SPECIALIST Impressions 01/18/2025 12:14 PM RESEARCH LABORATORY SPECIALIST Healing, nailed left femur intertrochanteric fracture. Dictated by: Jimbo Downs M.D. The radiology attending physician has personally reviewed this study, and had reviewed and/or edited this written report and agrees with it. Electronically signed by: Alfa Norman M.D. Narrative 01/18/2025 12:14 PM RESEARCH LABORATORY SPECIALIST EXAM: XR FEMUR LEFT 2 OR MORE [...] old F with given history of screening. 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 TB: TB Report ID: [id number] Reading Location: [facility] [place] Procedure Note Dalila John MD - 05/28/2021 EXAM DESCRIPTION: DEXA AXIAL SKELETON BONE DENSITY 1 OR MORE SITES REASON FOR STUDY: 80 y/o year old F with given history ofscreening. 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 ADVANCE DIRECTIVE 12/16/2024 POWER OF A TTORNEY-MEDICAL ADVANCE DIRECTIVE 02/19/2017 12:00 AM CHARLES Atwood OF [employer] 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
--- OUTSIDE RECORDS SUMMARY | 2025-03-29 13:19 | XMS_ITS | Clinical Summary ---
Author Organization [facility] Address [address] [place] [address] Care Team Providers Care Gis Programmer Name Role Phone Romi Sylvester Primary Care Provider [phone] Allergies No known active allergies Medications Multiple Vitamins-Minera ls (PRESERVISION AREDS) capsule 12/15/2017 Acti ve Cyanocobalamin (VITAMIN B-12) 50 MCG Tab Active denosumab (PROLIA) 60 MG/ML injection 12/21/2018 Act bandar Ergocalciferol (VITAMIN D2) 50 MCG (1999 UT) Tab Take 1 capsule by mouth daily. 01/17/2019 Active Active Problems Problem Noted Date Diagnosed Date Cough 12/21/2018 Right sided temporal headache 12/21/2018 Osteoporosis 03/31/2018 Overview (11/25/2019): Description: dexa 03/2018 Prolia started 11/2018 Vaccination refused by patient 12/21/2017 Generalized osteoarthritis of multiple sites Left rotator cuff tear 12/15/2017 Lumbar disc disease 12/15/2017 Macular degeneration 12/15/2017 Overview (11/25/2019): Description: gets injections Osteopenia 12/15/2017 Overview (11/25/2019): Description: had taken fosamax in past Sciatica 12/15/2017 Overview (11/25/2019): Description: chronic Exudative age-related macula r degeneration ([facility]) 08/03/2017 Overview (05/14/2020): Last Assessment & Plan: Recurrent IRF OS today. Last BANDAR 10/17/19, 13 weeks ago. Consider repeat BANDAR OS today. Risks, benefits, alternatives were reviewed with patient. Patient wished to proceed. It appears the patient has been getting the injection roughly every 3 months or so. Will give her an injection today and re-evaluate her in 3 months time. Pseudophakia 02/17/2017 Cystoid macular edema 07/10/2016 Optic cupping 03/02/2016 Overview (05/14/2020): Last Assessment & Plan: Follows with Dr. Mishra [facility] mona. Vitreous floaters 03/02/2016 Overview (05/14/2020): Last Assessment & Plan: Signs and symptoms of retinal detachment and tears were discussed with the patient. Knee joint replacement by other means 03/16/2012 Resolved Problems Problem Noted Date Diagnosed Date Resolved Date Encounter for vitamin deficiency screening 01/25/2019 08/03/2020 Encounter for screening for lipoid disorders 9 08/03/2020 Breast cancer screening 12/21/201807/24 Encounter for preventive health examination 09/29/2015 08/03/2020 Preoperative examination 06/25/201009/2020 Immunizations Immunization Administration Dates Next Due Pneumococcal (Pneumovax 23) 1940 Pneumococcal (Prevnar 13) 12/15/2017 Zoster (Zostavax) 18709 Unt/0.65Ml 1940 Family History Medical History Relation Comments Cancer Brother Heart Disease Brother Hypertension Brother MALIGNANT NEOPLASM Brother PULM EMBOLISM Brother Cancer Father Heart Disease Mother Relation Status Comments Brother Father Mother Social History Tobacco Use Types Packs/Day Years Used Date Smoking Tobacco: Never Smokeless Tobacco: Never Alcohol Use Standard Drinks/Week Comments No 0 (1 standard drink = 0.6 oz pur e alcohol) AUDIT-C Answer Date Recorded Frequency of Alcohol Consumption Never 10/07/2019 Average Number of Drinks Not on file 019 Frequency of Binge Drinking Not on file 09/23 PHQ-2 Answer Date Recorded PHQ-2 Score - If the patient scores above 3, please move on to questions 3-9 0 05/15/2020 Comments No Sex and Gender Information Value Date Recorded Sex Assigned at Not on file Legal Sex Female 7:56 PM CDT Gender Identity Not on file Sexual Orientation Not on file Occupation Industry Job Start Date Job End Date Not on file Not on file Not on file Not on file Last Filed Vital Signs Vital Sign Reading Time Taken Comments Blood Pressure 126/84 05/15/2020 9:16 AM CDT Pulse 96 10/07/2019 10:40 AM CABLE TV INSTALLER Temperature 37.2 C (99 F) 10/07/2019 10:40 AM CABLE TV INSTALLER Respiratory Rate 20 10/07/2019 10:40 AM CABLE TV INSTALLER Oxygen Saturation 96% 10/07/2019 10:40 AM CABLE TV INSTALLER Inhaled Oxygen Concentration - - Weight 51.7 kg (114 lb) 05/15/2020 9:16 AM CDT Height 162.6 cm (5' 4 ) 05/15/2020 9:16 AM CDT Body Mass Index 19.57 05/15/2020 9:16 AM CDT Plan of Treatment Health Maintenance Due Date Last Done Comments Zoster Vaccines (1 of 2) [birth year] RSV Immunization or 60+ Years (1 - 1-dose 75+ series) 2014 Pneumococcal Vaccine: 50+ Years (2 of 2 - PPSV23) 12/15/2018 12/15/2017, 1940 Annual Medicare Wellness Visit 05/16/2021 05/15/2020 COVID-19 Vaccine (3 - 2023-2 5 season) 2024 01/25/2021, 01/01/2021 DTaP, Tdap and Td Vaccines ( 2 - Td or Tdap) 12/18/2024 12/18/2014 Meningococcal B Vaccine Aged Out No l onger eligible based on patient's age to complete this topic Meningococcal Vaccine Aged Out No milagros jamal eligible based on patient's age to complete this topic RSV Immunizations Under 20 Months Aged Out No longer eligible b ased on patient's age to complete this topic Insurance Homecare [employer] [facility] MEDICARE MEDICARE [employer] OPEN [facility] Care Teams Gis Programmer Relationship Specialty Start Date End Date Romi Sylvester DO PCP - General INTERNAL MEDICINE 04/11/22
--- OUTSIDE RECORDS SUMMARY | 2025-03-29 13:19 | XMS_ITS | Clinical Summary ---
Author Organization [facility] Cordell juan Johansen Address [address] [place] [address] Care Team Providers Care Automotive Drivability Technician Name Role Phone Unavailable Primary Care Provider Unavailabl e Allergies No known active allergies Medications cyanocobalamin (VITAMIN B-12) 50 mcg Tablet Take 50 mcg by mouth daily. Active guvpu-[id number]-[id number]-EPA -fish oil 1,000 mg Capsule Take 1 Capsule by mouth daily. 04/08/2022 Active Vit C-Vit S-Qvjztd-ArKv-L utein (PRESERVISION) 226-90-0.8-5 mg Capsule Take 1 Capsule by mouth daily. Active Active Problems No known active problems Encounters Date Type Department Care Team Description 02/08/2025 Telephone [facility] - [place] [address] [address] Jd Medina MD Port Removal 01/11/2025 External Device Data STL ABSTRACTION Provider, Abstract from Last 3 Months Family History Medical History Relation Name Comments Heart Disease Brother 1 Cancer Brother 2 Cancer Father Heart Disease Mother No Known Problems Son 1 No Known Problems Son 3 Relation Name Status Comments Brother 1 Brother 2 Father Mother Son 1 Alive Son 2 Alive Son 3 Alive Social History Tobacco Use Types Packs/Day Years Used Date Smoking Tobacco: Never Smokeless Tobacco: Never Tobacco Cessation:Counseling Given: Not Answered Alcohol Use Standard Drinks/Week Comments Never 0 (1 standard drink = 0.6 oz pur e alcohol) Comments Unknown Sex and Gender Information Value Date Recorded Sex Assigned at Not on file Legal Sex Female 10:31 AM CATEGORY ANALYST Gender Identity Not on file Sexual Orientation Not on file Last Filed Vital Signs Vital Sign Reading Time Taken Comments Blood Pressure 125/75 10/25/2024 1:30 PM CATEGORY ANALYST Pulse 76 10/25/2024 1:30 PM CATEGORY ANALYST Temperature 36.5 C (97.7 F) 10/25/2024 1:30 PM CATEGORY ANALYST Respiratory Rate 16 10/25/2024 1:30 PM CATEGORY ANALYST Oxygen Saturation 92% 10/25/2024 1:30 PM CATEGORY ANALYST Inhaled Oxygen Concentration - - Weight 47.4 kg (104 lb 9.6 oz) 10/25/2024 1:30 P M CATEGORY ANALYST Height 162.6 cm (5' 4 ) 10/29/2022 9:37 AM CATEGORY ANALYST Body Mass Index 17.95 10/29/2022 9:37 AM CATEGORY ANALYST Plan of Treatment Health Maintenance Due Date Last Done Comments ZOSTER VACCINE (1 of 2) [birth year] RSV VACCINE (60+ or ) (1 - 1-dose 75+ series) 2014 PNEUMOCOCCAL VACCINE 50+ YEA RS (2 of 2 - PPSV23) 02/09/2018 12/15/2017, 1940 INFLUENZA VACCINE (#1) 2024 COVID-19 Vaccine ( season) 07/24/202403/2021, 01/01/2021 OSTEOPOROSIS SCREENING 05/28/2026 , 05/28/2021, 03/30/2018 DTAP/TDAP/TD VACCINES (3 - T d or Tdap) 08/13/2032 08/13/2022, 12/18/2014 Procedures Procedure Name Priority Date/Time Associated Diagnosis Comments CANCER ANTIGEN 15-3 Routine 03/22/2025 1 :31 PM CDT Malignant neoplasm of right breast in female, estrogen receptor negative, unspecified site of breast (CMS/HCC) from Last 3 Months Results * CANCER ANTIGEN 15-3 (03/22/2025 1:31 PM CDT) CA 15-3 5 <32 U/mL [facility] Comment: This test was performed using the Siemens (InfoBionic) chemiluminescent method. Values obtained from different assay methods cannot be used interchangeably. CA 15-3 levels, regardless of value, should not be interpreted as absolute evidence of the presence or absence of disease. FASTING:NO FASTING: NO Test Performed at: [facility] [id number] [id number] Aryan Saenz MD Blood 03/22/2025 1:31 PM CDT 03/22/2025 1:31 PM CDT Jd Medina MD CHEMISTRY ORDERABLES Final Resu lt [facility] [phone] [facility] [id number] [id number] from Last 3 Months Insurance [facility]
--- OUTSIDE RECORDS SUMMARY | 2025-03-29 13:19 | XMS_ITS ---
Author Organization [facility] Address [address] [place] [address] Care Team Providers Care Instructor Programmable Controllers Name Role Phone Nga Romi Shields DO Primary Care Provider [phone] Champ Eagle MD Unavailable [phone] Active Problems Problem Noted Date Diagnosed Date Severe protein-calorie malnutrition 12/09/2024 Acute blood loss anemia 12/06/2024 Assessment & Plan (12/10/2024 8:55 AM MULTIFOLD OPERATOR): 12/06: POD1 6.7, given 2 unit pRBC, posttransfusion Hgb 7.3 12/07 : Hgb 6.7, given 1 unit pRBC, post transfusion Hgb 8.1 12/08: Hgb 7.4 12/09: Hgb 7.9 12/10: Hgb 7.7, labs d/junior Discharge planning issues 12/05/2024 Assessment & Plan (12/15/2024 1:44 PM MULTIFOLD OPERATOR): -CM initial assessment -12/07: PT/OT recommending IPR 12/09-present Patient is medically stable for discharge, SW/CM updated. Discharge pending insurance authorization - P2P denied 12/13-- CM to follow up regarding discharge planning - 12/14-: pending appeal. Appeal approved 12/15, able to discharge 12/08 Treatment plan completed Emphysema, unspecified 12/05/2024 Assessment & Plan (12/05/2024 1:03 PM MULTIFOLD OPERATOR): - Patient's home Albuterol PRN restarted Acute pain due to trauma 12/05/2024 Assessment & Plan (12/05/2024 1:04 PM MULTIFOLD OPERATOR): - Multimodal pain management post op Closed displaced intertrochanteric fracture of l eft femur 12/04/2024 Assessment & Plan (12/15/2024 1:44 PM MULTIFOLD OPERATOR): - Ortho c/s - 12/05: OR for [...] from 08/20/2022:Stage IB(cT1c, cN0, cM0, G3, ER-, MT-, HER2-) - Signed by Champ Eagle MD [...] time. Assessment & Plan (10/03/2024 10:19 AM MULTIFOLD OPERATOR): Has been on an every 4 month [...] well. Assessment & Plan (10/19/2023 9:25 AM MULTIFOLD OPERATOR): Slight IRF. Receiving injections OS q 3 [...] week. Assessment & Plan (12/01/2022 9:32 AM MULTIFOLD OPERATOR): Slight increase in IRF. Receiving injections OS [...] eye. Assessment & Plan (11/04/2021 10:06 AM MULTIFOLD OPERATOR): Stable mild intraretinal fluid in the left [...] proceed. Assessment & Plan (11/05/2020 9:38 AM MULTIFOLD OPERATOR): With stable mild intraretinal fluid in the [...] proceed. Assessment & Plan (01/16/2020 8:48 AM MULTIFOLD OPERATOR): Recurrent IRF OS today. Last YAN 10/17/19, 13 weeks ago. Consider repeat YAN OS today. Risks, benefits, alternatives were reviewed with patient. Patient wished to proceed. It appears the patient has been getting the injection roughly every 3 months or so. Will give her an injection today and re-evaluate her in 3 months time. Assessment & Plan (12/05/2019 9:10 AM MULTIFOLD OPERATOR): Without subretinal or intraretinal fluid today, we discussed the options of repeating injection versus observation, after discussion the patient wished for observation at this time. We'll re-evaluate roughly 6 weeks time. Assessment & Plan (10/17/2019 10:14 AM MULTIFOLD OPERATOR): Intraretinal fluid in the left eye has [...] patient. Assessment & Plan (01/03/2019 10:40 AM MULTIFOLD OPERATOR): Active wet macular degeneration left eye, recommend repeat injection with Eylea, , alternatives were reviewed with the patient. Patient wishes to proceed. Assessment & Plan (12/06/2018 8:50 AM MULTIFOLD OPERATOR): IRF improved, Pt wishes PRN tx, Will [...] 03/02/2016 Assessment & Plan (01/16/2020 9:11 AM MULTIFOLD OPERATOR): Follows with Dr. Mishra IOP okay. Assessment & Plan (04/04/2019 10:21 AM CDT): Patient sees Dr. Mishra, recommend follow-up with him for evaluation of the possibility of glaucoma. Vitreous floaters 03/02/2016 Assessment & Plan (08/30/2018 10:50 AM CDT): Signs and symptoms of retinal detachment and tears were discussed with the patient. Current Treatment and Therapy Plans No current plan information found. Past Treatment and Therapy Plans No past plan information found. Lifetime Dose Tracking * Chemical Lifetime Dose Automatic Entry Manual Entr y Fluoro Time 4.323 minutes 4.323 minutes 0 minutes Air kerma at the reference point (Ka,r) 42.61 mGy 4 2.61 mGy 0 mGy DLP 453 mGycm 453 mGycm 0 mGycm
[2025-03-29 13:26] LABS: Basophils Absolute Auto 0.1 K/mm3 (0.0-0.1); Basophils Percent Auto 1.1 % (0.2-1.2); Eosinophils Absolute Auto 0.2 K/mm3 (0-0.3); Hematocrit 39.7 % (37.0-47.0); Hemoglobin 12.2 g/dL (12.0-15.0); Immature Granulocyte Absolute 0.01 K/mm3 (0.00-0.031); Immature Granulocyte Percent A 0.2 % (0-0.5); Lymphocytes Absolute Auto 1.15 K/mm3 (0.9-3.2); Lymphocytes Percent Auto 21.8 % (18.3-44.2); Mean Corpuscular HGB Conc 30.7 g/dl (32-36); Mean Corpuscular Hemoglobin 26.6 pg (26-34); Mean Corpuscular Volume 86.7 fl (80-100); Mean Platelet Volume 10.7 fl (7.4-10.4); Monocytes Absolute Auto 0.6 K/mm3 (0.1-0.6); Monocytes Percent Auto 10.4 % (2.6-8.5); Neutrophils Absolute Auto 3.4 K/mm3 (1.3-6.7); Neutrophils Percent Auto 63.5 % (45.5-73.1); Platelet Count Result 255 k/mm3 (150-375); Red Blood Count 4.58 M/mm3 (4.2-5.4); Red Cell Distribution Width 13.9 % (11.5-14.5); White Blood Count 5.3 K/mm3 (4.5-10.0)
[2025-03-29 13:29] LABS: Blood Urea Nitrogen 17 mg/dL (8-26); Carbon Dioxide 28 mmol/L (22-30); Chloride 102 mmol/L (98-109); Estimated Glomerular Filt Rate > 60; Glucose 88 mg/dL (70-105); Ionized Calcium (POC) 1.19 mmol/L (1.11-1.31); Potassium 4.1 mmol/L (3.5-4.9); Sodium 142 mmol/L (138-146)
[2025-03-29 14:18] LABS: Alanine Aminotransferase 28 U/L (6-35); Albumin Level 4.2 g/dL (3.5-5.1); Alkaline Phosphatase 89 U/L (38-126); Anion Gap 6 mmol/L (4-12); Aspartate Amino Transferase 29 U/L (14-36); Bilirubin,Total 0.5 mg/dL (0.2-1.3); Blood Urea Nitrogen 18 mg/dL (7-17); Carbon Dioxide 31 mmol/L (22-30); Chloride 103 mmol/L (98-107); Estimated Glomerular Filt Rate > 60; Glucose 88 mg/dL (65-110); Potassium 4.1 mmol/L (3.4-5.0); Sodium 140 mmol/L (137-145)
== END 2025-03-29 13:09 | disposition home or self-care (01) ==
LOC: ANHLAB 13:09
PROVIDERS: PCP Internal Medicine; Visit Provider Internal Medicine Hematology & Oncology
DX: C50.911 Malignant neoplasm of unspecified site of right female breast (principal); Z17.1 Estrogen receptor negative status [ER-]
CPT/HCPCS: 36415; 80047; 80053; 85025